=== PATIENT | female | born 1930 | race Two or more races ===

== ENCOUNTER 2019-01-23 16:11 | Emergency (ER) | payer OTHER ==
[~2019-01-23] VITALS: Ht 149.9 cm; Wt 51.7 kg
--- NOTE | 2019-01-23 16:25 | NUR ---
ED Nurse Note: Patient walked into ED brought in by her caregiver from home patient reports coughing/flu like symptoms for 2 weeks, patient reports pain around her "lung area"
[2019-01-23] MEDS ORDERED: COLACE100 MG ORAL (16:28)
[2019-01-23 16:38] VITALS: BP 139/71
--- NOTE | 2019-01-23 17:08 | Emergency Room Report ---
History of Present Illness General Chief Complaint: Upper Respiratory Illness Source: Patient (Lyssa Galeas) Present Illness HPI 88-year-old female presents to the emergency department for persistent dry cough times almost 2 weeks. Patient denies fevers, chills, fatigue, sore throat , chest pain, palpitations. Patient does report progressive intermittent pain in the back and bilateral sides of the rib cage only when coughing. Reports history of smoking in the past and bronchitis that is not chronic. Denies exertional dyspnea. Patient is not up-to-date with this year's flu vaccination. No aggravating or relieving factors at this time. She has no other complaints/symptoms. (Lyssa Galeas) Allergies: Coded Allergies: No Known Allergies (Unverified , 01/23/19) Patient History Past Medical History: see triage record, asthma Past Surgical History: none Pertinent Family History: none Social History: Reports: smoking Now: No Reviewed Nursing Documentation: PMH: Agreed; PSxH: Agreed (Lyssa Galeas) Nursing Documentation-PMH Past Medical History: No Stated History (Lyssa Galeas) Review of Systems All Other Systems: negative except mentioned in HPI (Lyssa Galeas) Physical Exam Vital Signs Date Time Temp Pulse Resp B/P (MAP) Pulse Ox O2 Delivery O2 Flow Rate FiO2 01/23/19 16:20 98.2 66 19 139/71 95 Room Air Sp02 EP Interpretation: reviewed, normal General Appearance: no apparent distress, alert, GCS 15, non-toxic Head: normocephalic, atraumatic Eyes: bilateral eye normal inspection, bilateral eye PERRL ENT: hearing grossly normal, normal voice Neck: full range of motion, no meningismus, no bony tend Respiratory: chest non-tender, lungs clear, normal breath sounds, no respiratory distress, no accessory muscle use, speaking full sentences, wheezing - very scant bilateral Wheezes noted Cardiovascular #1: regular rate, rhythm, no edema Musculoskeletal: back normal, gait/station normal, normal range of motion, non- tender Neurologic: alert, oriented x3, responsive, motor strength/tone normal, sensory intact, speech normal, grossly normal Psychiatric: judgement/insight normal Skin: normal color, no rash, warm/dry, well hydrated Lymphatic: no adenopathy (Lyssa Galeas) Medical Decision Making PA Attestation Dr. broussard is my supervising Physician whom patient management has been discussed with. (Lyssa Galeas) Medicare Attestation The history of Tamara Castano has been reviewed and management options for her have been examined and discussed by Dioni Byrne. I have personally examined and interviewed the patient. (Dioni Byrne MD) Diagnostic Impression: Primary Impression: Atypical pneumonia ER Course 88-year-old female presents to the emergency department for persistent dry cough times almost 2 weeks. Patient denies fevers, chills, fatigue, sore throat , chest pain, palpitations. Patient does report progressive intermittent pain in the back and bilateral sides of the rib cage only when coughing. Reports history of smoking in the past and bronchitis that is not chronic. Denies exertional dyspnea. Patient is not up-to-date with this year's flu vaccination. No aggravating or relieving factors at this time. She has no other complaints/symptoms. Ddx considered but are not limited to URI, pneumonia, PE, strep pharyngitis, meningitis, Bronchitis, VT, dissection just to name a few. Vital signs: Pt.is afebrile VS are WNL H&PE are most consistent with bronchitis and atypical PNA ORDERS: none required at this time, the diagnosis is clinical ED INTERVENTIONS: None required at this time. Given the extended length of patient's respiratory symptoms for greater than 10 days in addition to history of bronchitis and being in advanced age of fill this patient needs to be treated as a typical pneumonia with an antibiotic as she is considered high risk. -I do not identify an emergent condition at this time. With current presentation , pt. is stable for close outpatient follow up and conservative treatment. D/ w pt. to return promptly to ED with worsening or new symptoms.- Pt. verbalizes' understanding and agreement with proposed treatment plan. DISCHARGE: At this time pt. is stable for d/c to home. Will provide printed patient care instructions, and any necessary prescriptions. Care plan and follow up instructions have been discussed with the patient prior to discharge. (Lyssa Galeas) Last Vital Signs Date Time Temp Pulse Resp B/P (MAP) Pulse Ox O2 Delivery O2 Flow Rate FiO2 01/23/19 16:38 98.2 66 19 139/71 95 Room Air (Lyssa Galeas) Disposition: HOME, SELF-CARE Condition: Stable Scripts Codeine/Promethazine Hcl* (PROMETHAZINE-CODEINE SYRUP*) 118 Ml Syrup 5 ML ORAL Q6H PRN for For Cough, #120 ML 0 Refills Prov: Lyssa Galeas 01/23/19 Albuterol Sulfate* (ALBUTEROL SULFATE MDI*) 8.5 Gm Hfa.aer.ad 2 PUFF INH Q3H, #1 INH 0 Refills Prov: Lyssa Galeas 01/23/19 Levofloxacin* (LEVAQUIN*) 750 Mg Tablet 750 MG ORAL DAILY for 7 Days, #7 TAB Prov: Lyssa Galeas 01/23/19 Patient Instructions: Upper Respiratory Infection, Adult Additional Instructions: Take medications as directed. Follow up with a Primary Care Provider in 3-5 days, even if your symptoms have resolved. --Please review list of primary care clinics, if you do not already have a primary care provider Return sooner to ED if new symptoms occur, or current symptoms become worse. Do not drink alcohol, drive, or operate heavy machinery while taking Cough Syrup as this may cause drowsiness. - Please note that this Emergency Department Report was dictated using [employer] sawyer technology software, occasionally this can lead to erroneous entry secondary to interpretation by the dictation equipment. Lyssa Galeas Jan 23, 2019 17:08 Dioni Byrne MD Jan 26, 2019 20:54
[2019-01-23] MEDS ORDERED: LEVAQUIN750 MG ORAL (17:09)
[2019-01-23] MEDS ORDERED: PROMETHAZINE-C118 M1 ORAL (17:09)
[2019-01-23] MEDS ORDERED: ALBUTEROL SULF8.5 GM INH (17:09)
[2019-01-23 17:32] VITALS: BP 139/71
--- NOTE | 2019-01-23 17:33 | NUR ---
ER DISCHARGE NOTE: Patient is cleared to be discharged per ERPA, pt is aox4, on room air, with stable vital signs. pt was given dc and prescription instructions, pt was able to verbalize understanding, pt id band removed. pt is able to ambulate with steady gait. pt took all belongings.
== END 2019-01-23 17:30 | disposition home or self-care (01) ==
LOC: EMR 17:00
DX: J18.9 Pneumonia, unspecified organism (principal); J45.909 Unspecified asthma, uncomplicated; F17.200 Nicotine dependence, unspecified, uncomplicated
CPT/HCPCS: 99282

== ENCOUNTER 2019-08-05 16:37 | Inpatient (IN) | payer OTHER ==
[~2019-08-05] VITALS: Ht 142.2 cm; Wt 52.2 kg
[~2019-08-05 16:37] MED LIST: ALBUTEROL SULF8.5 GM INH; COLACE100 MG ORAL; LEVAQUIN750 MG ORAL; PROMETHAZINE-C118 M1 ORAL
[2019-08-05 16:45] VITALS: BP 178/84
--- NOTE | 2019-08-05 16:45 | NUR ---
ED Nurse Note: Recieved pt BIBA from home with c/o abdominal pain with constipaition x 4 days, also mild nausea, denies emesis, fevers or any other complaitns, pain level at 7/10, no cp, o sob, denies any other complaitns, pt is maltese speaking only and requires translation, pt denies cp, no sob or labored breathing, pt gowned and placed on monitoring, will resume care as ordered and covering for primary nurse.
[2019-08-05] MEDS ORDERED: Isovue-300 100ml vial INJ PRN (17:00)
[2019-08-05 17:55] LABS: BASOPHILS % (AUTO) 0.9 % (0.0-2.0); HEMOGLOBIN 11.4 G/DL (12.0-16.0); LYMPHOCYTES % (AUTO) 23.1 % (20.0-45.0); MEAN CORPUSCULAR VOLUME 80 FL (80-99); MONOCYTES % (AUTO) 7.8 % (1.0-10.0); NEUTROPHILS % (AUTO) 67.2 % (45.0-75.0); PLATELET COUNT 309 K/UL (150-450); RED BLOOD COUNT 3.99 M/UL (4.20-5.40); RED CELL DISTRIBUTION WIDTH 12.8 % (11.6-14.8); WHITE BLOOD COUNT 8.9 K/UL (4.8-10.8)
[2019-08-05 18:00] LABS: ALANINE AMINOTRANSFERASE 11 U/L (12-78); ALBUMIN 3.7 G/DL (3.4-5.0); ALBUMIN/GLOBULIN RATIO 0.9 (1.0-2.7); ALKALINE PHOSPHATASE 144 U/L (46-116); ANION GAP 10 mmol/L (5-15); ASPARTATE AMINO TRANSFERASE 26 U/L (15-37); BILIRUBIN,TOTAL 0.5 MG/DL (0.2-1.0); BLOOD UREA NITROGEN 5 mg/dL (7-18); CALCIUM 9.2 MG/DL (8.5-10.1); CARBON DIOXIDE 22 MMOL/L (21-32); CHLORIDE 81 MMOL/L (98-107); CREATININE 0.6 MG/DL (0.55-1.30); POTASSIUM 4.2 MMOL/L (3.5-5.1)
[2019-08-05 18:11] LABS: SODIUM 112 MMOL/L (136-145)
--- NOTE | 2019-08-05 19:28 | Diagnostic Imaging Report ---
Clinical Indication: Abdominal pain with constipation for 4 days, also mild nausea Technique: No oral contrast utilized, per emergency room physician request IV administration nonionic contrast. Venous phase spiral acquisition obtained through the abdomen and pelvis. Multiplanar reconstructions were generated. Total dose length product 542.02 mGycm. CTDIvol(s) 11.76 mGy. Dose reduction achieved using automated exposure control Comparison: none Findings: There is some image degradation due to motion artifact. The appendix is poorly demonstrated, due to motion artifact, possibly distended particularly distally but difficult to state with certainty. There is evidence of rectal fecal incontinence. The rectum is mildly distended by stool. There is colonic diverticulosis. No evidence of diverticulitis. The proximal colonic anatomy is not well demonstrated. Fluid-filled small bowel loops are seen in the right upper quadrant, but no randy small bowel distention. No free or loculated intraperitoneal gas or fluid is evident. The distal esophagus, stomach, duodenum are grossly unremarkable. The liver, gallbladder, bile ducts, pancreas, spleen, adrenals are unremarkable. The kidneys demonstrate mild bilateral hydronephrosis. The bladder is markedly distended. The uterus and adnexal structures appear unremarkable. The included lung bases are grossly clear. The bones demonstrate degenerative spondylosis changes. 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 Impression: Limited exam due to motion artifact Equivocally distended appendix, not well visualized due to the above. Correlate with clinical findings Distended urinary bladder. Mild resultant hydronephrosis Incidental findings as noted, including degenerative spondylosis and lumbar levoscoliotic deformity. This agrees with the preliminary interpretation provided overnight by [facility] teleradiology service. The CT scanner at [facility] is accredited by the [employer] and the scans are performed using protocols designed to limit radiation exposure to as low as reasonably achievable to attain images of sufficient resolution adequate for diagnostic evaluation.
--- NOTE | 2019-08-05 21:34 | Emergency Room Report ---
History of Present Illness General Chief Complaint: Abdominal Pain Source: Patient Present Illness HPI 89-year-old female presents ED for evaluation. Complaining of abdominal pain with nausea x4 days. Pain is mid abdomen, sharp, 8 out of 10, nonradiating. Denies fevers or chills. Denies chest pain or shortness of breath. Denies any diarrhea. No other aggravating relieving factors. Denies any other associated symptoms Allergies: Coded Allergies: PENICILLINS (Unverified Allergy, Unknown, 08/05/19) Patient History Past Medical History: HTN Past Surgical History: none Pertinent Family History: none Social History: Denies: smoking, alcohol use, drug use Now: No Immunizations: UTD Reviewed Nursing Documentation: PMH: Agreed; PSxH: Agreed Nursing Documentation-PMH Hx Hypertension: Yes Review of Systems All Other Systems: negative except mentioned in HPI Physical Exam Vital Signs Date Time Temp Pulse Resp B/P (MAP) Pulse Ox O2 Delivery O2 Flow Rate FiO2 08/05/19 16:30 98.2 86 16 178/84 (115) 96 Room Air Sp02 EP Interpretation: reviewed, normal General Appearance: no apparent distress, GCS 15, non-toxic, cachetic Head: normocephalic, atraumatic Eyes: bilateral eye normal inspection, bilateral eye PERRL ENT: hearing grossly normal, normal pharynx, no angioedema, normal voice Neck: full range of motion, supple/symm/no masses Respiratory: chest non-tender, lungs clear, normal breath sounds, speaking full sentences Cardiovascular #1: regular rate, rhythm, no edema Cardiovascular #2: 2+ carotid (R), 2+ carotid (L), 2+ radial (R), 2+ radial (L) , 2+ dorsalis pedis (R), 2+ dorsalis pedis (L) Gastrointestinal: normal bowel sounds, soft, non-distended, no guarding, no rebound, tenderness Rectal: deferred Genitourinary: normal inspection, no CVA tenderness Musculoskeletal: back normal, gait/station normal, normal range of motion, non- tender Neurologic: alert, oriented x3, responsive, motor strength/tone normal, sensory intact, speech normal Psychiatric: judgement/insight normal, memory normal, mood/affect normal, no suicidal/homicidal ideation Reflexes: 3+ bicep (R), 3+ bicep (L), 3+ tricep (R), 3+ tricep (L), 3+ knee (R) , 3+ knee (L) Lymphatic: no adenopathy Procedures Critical Care Time Critical Care Time i. I feel this is a highly complex case requiring extensive working including EKG/Rhythm strip, Xray/CT/US, Blood/urine lab work, repeat exams while in ED, and administration of strong opiates/narcotics for pain control, admission to hospital or close patient follow up. Total time: 30 min bedside evaluation and treatment excludes procedures (EKG). Reason for critical care: hyponatremia, appendicitis Possible complications: hypotension, hypertension, [place], shock, arrhythmias, metabolic acidosis, end organ damage, respiratory failure. Interventions: labs, ivfs, meds, CT. NS boluses. consulation with surgery. broad spectrum abx. Course: Presenting with abdominal pain. Labs show sodium 112. CT shows appendicitis without rupture or abscess. Surgery consulted. NS boluses given. Antibiotics given. hypertonic saline given. Consultations: nursing staff, EMS, family Performed by: Dr Byrne Tolerated well condition = critical j. because of unstable vital signs this patient had a condition that could potentially threaten life or limb. I feel this is a critical patient who required my full attention while patient was considered critical. Total Critical Care Time excluding procedures was greater than 30 minutes Medical Decision Making Diagnostic Impression: Primary Impression: Hyponatremia Additional Impression: Appendicitis Qualified Codes: K35.80 - Unspecified acute appendicitis ER Course Hospital Course 89 yo F presents with abd pain Differential diagnoses include: Appendicitis, cholecystitis, small bowel obstruction Clinical course Patient placed on stretcher. night monitor. After initial history and physical I ordered labs, IV fluids, UA, pain medication and CT scan Labs - no leukocytosis, Hb/Hct stable. Na 112. CT abdomen and pelvis - appendicits. no perforation or abscess Antibiotics given. IVFs given. Hypertonic saline ordered Dr Blackman will evaluate the patient Case discussed with Dr. Lewis and he agreed to accept the patient to his service for further care and support I feel this is a highly complex case requiring extensive working including EKG/ Rhythm strip, Xray/CT/US, Blood/urine lab work, repeat exams while in ED, and administration of strong opiates/narcotics for pain control, admission to hospital or close patient follow up. Diagnosis - appendicitis, hyponatremia Patient admitted to telemetry in serious condition Labs Test 08/05/19 17:00 White Blood Count 8.9 K/UL (4.8-10.8) Red Blood Count 3.99 M/UL (4.20-5.40) Hemoglobin 11.4 G/DL (12.0-16.0) Hematocrit 32.0 % (37.0-47.0) Mean Corpuscular Volume 80 FL (80-99) Mean Corpuscular Hemoglobin 28.6 PG (27.0-31.0) Mean Corpuscular Hemoglobin Concent 35.6 G/DL (32.0-36.0) Red Cell Distribution Width 12.8 % (11.6-14.8) Platelet Count 309 K/UL (150-450) Mean Platelet Volume 5.6 FL (6.5-10.1) Neutrophils (%) (Auto) 67.2 % (45.0-75.0) Lymphocytes (%) (Auto) 23.1 % (20.0-45.0) Monocytes (%) (Auto) 7.8 % (1.0-10.0) Eosinophils (%) (Auto) 1.0 % (0.0-3.0) Basophils (%) (Auto) 0.9 % (0.0-2.0) Sodium Level 112 MMOL/L (136-145) Potassium Level 4.2 MMOL/L (3.5-5.1) Chloride Level 81 MMOL/L (98-107) Carbon Dioxide Level 22 MMOL/L (21-32) Anion Gap 10 mmol/L (5-15) Blood Urea Nitrogen 5 mg/dL (7-18) Creatinine 0.6 MG/DL (0.55-1.30) Estimat Glomerular Filtration Rate mL/min (>60) Glucose Level 100 MG/DL (74-106) Calcium Level 9.2 MG/DL (8.5-10.1) Total Bilirubin 0.5 MG/DL (0.2-1.0) Aspartate Amino Transf (AST/SGOT) 26 U/L (15-37) Alanine Aminotransferase (ALT/SGPT) 11 U/L (12-78) Alkaline Phosphatase 144 U/L (46-116) Total Protein 8.0 G/DL (6.4-8.2) Albumin 3.7 G/DL (3.4-5.0) Globulin 4.3 g/dL Albumin/Globulin Ratio 0.9 (1.0-2.7) Lipase 105 U/L (73-393) CT/MRI/US Diagnostic Results CT/MRI/US Diagnostic Results : Imaging Test Ordered: CT A/P Impression The appendix is enlarged (11 mm) with mild stranding, correlate clinically for appendicitis. No free air. No fluid collections. No SBO or diverticulitis. Significantly distended bladder. Mild bilateral hydronephrosis/pelviectasis. No ureteral calculus. Unremarkable gallbladder and pancreas. Last Vital Signs Date Time Temp Pulse Resp B/P (MAP) Pulse Ox O2 Delivery O2 Flow Rate FiO2 08/05/19 16:45 86 16 Room Air 08/05/19 16:45 98.2 178/84 96 Status: improved Disposition: ADMITTED INPATIENT Condition: Serious Referrals: [facility],REFERRING (PCP) Dioni Byrne MD Aug 05, 2019 21:34
[2019-08-05] MEDS ORDERED: NaCl 3% 500ml 500 ML IV ONE (22:30)
--- NOTE | 2019-08-05 23:28 | Consultation ---
History of Present Illness General Date patient seen: Aug 05, 2019 Reason for Hospitalization: Abdominal Pain Present Illness HPI This is a 81-year-old female with multiple medical comorbidities who presented to [facility] emergency department complaining of abdominal pain and nausea for approximately 4 days. States that abdominal pain is mid abdominal pain around the umbilicus/pelvis and radiating to the left lower quadrant. Nausea but no significant emesis. Has had decreased appetite. In emergency department had a CT scan which identified 11 mm appendix with periappendiceal stranding which is mild but considerations for possible appendicitis. No leukocytosis, afebrile, hemodynamically stable. Admitted for work-up care and management. Surgery called to evaluate. Patient seen, patient evaluated, chart reviewed Allergies: Coded Allergies: PENICILLINS (Unverified Allergy, Unknown, 08/05/19) Medication History Scheduled Albuterol Sulfate* (Albuterol Sulfate Mdi*), 2 PUFF INH Q3H Docusate Sodium* (Colace*), 100 MG ORAL DAILY, (Reported) Levofloxacin* (Levaquin*), 750 MG ORAL DAILY Scheduled PRN Codeine/Promethazine Hcl* (Promethazine-Codeine Syrup*), 5 ML ORAL Q6H PRN for For Cough Patient History History Provided By: Patient, Medical Record, PMD Healthcare decision maker Resuscitation status Advanced Directive on File Past Medical/Surgical History Past Medical/Surgical History: (1) Abdominal pain (2) Hyponatremia (3) Appendicitis Review of Systems Review of Symptoms General ROS: no weight loss or fever Psychological ROS: no depression or mood changes, no memory loss Ophthalmic ROS: no visual changes or eye irritation ENT ROS: no nasal congestion, hearing loss, dizziness Allergy and Immunology ROS: no allergic symptoms or urticaria Hematological and Lymphatic ROS: no swollen glands, unusual bleeding or bruising Endocrine ROS: no polyuria, polydipsia, weight changes, temperature intolerance Respiratory ROS: no cough, shortness of breath, or wheezing Cardiovascular ROS: no chest pain or dyspnea on exertion Gastrointestinal ROS: abdominal pain, no bright red blood in stool. Musculoskeletal ROS: no myalgias or arthralgias Neurological ROS: no TIA or stroke symptoms Dermatological ROS: no new or changing skin lesions, rashes or pruritis Physical Exam Physical Exam General appearance: alert, cooperative, no distress, appears stated age Head: Normocephalic, without obvious abnormality, atraumatic Eyes: conjunctivae/corneas clear. PERRL, EOM's intact. Fundi benign Throat: Lips, mucosa, and tongue normal. Teeth and gums normal Neck: supple, symmetrical, trachea midline, no adenopathy, thyroid: not enlarged, symmetric, no tenderness/mass/nodules, no carotid bruit and no JVD Lungs: clear to auscultation bilaterally Heart: regular rate and rhythm, S1, S2 normal, no murmur, click, rub or gallop Abdomen: soft, mild mid abdominal tender, no focal RLQ tenderness, no rebound, no guarding. Bowel sounds normal. No masses, no organomegaly Extremities: extremities normal, atraumatic, no cyanosis or edema Pulses: 2+ and symmetric Skin: Skin color, texture, turgor normal. No rashes or lesions Neurologic: Grossly normal Last 24 Hour Vital Signs Date Time Temp Pulse Resp B/P (MAP) Pulse Ox O2 Delivery O2 Flow Rate FiO2 08/05/19 16:45 86 16 Room Air 08/05/19 16:45 98.2 84 16 178/84 96 Room Air 08/05/19 16:30 98.2 86 16 178/84 (115) 96 Room Air Laboratory Tests Test 08/05/19 17:00 08/05/19 23:00 White Blood Count 8.9 K/UL (4.8-10.8) Red Blood Count 3.99 M/UL (4.20-5.40) L Hemoglobin 11.4 G/DL (12.0-16.0) L Hematocrit 32.0 % (37.0-47.0) L Mean Corpuscular Volume 80 FL (80-99) Mean Corpuscular Hemoglobin 28.6 PG (27.0-31.0) Mean Corpuscular Hemoglobin Concent 35.6 G/DL (32.0-36.0) Red Cell Distribution Width 12.8 % (11.6-14.8) Platelet Count 309 K/UL (150-450) Mean Platelet Volume 5.6 FL (6.5-10.1) L Neutrophils (%) (Auto) 67.2 % (45.0-75.0) Lymphocytes (%) (Auto) 23.1 % (20.0-45.0) Monocytes (%) (Auto) 7.8 % (1.0-10.0) Eosinophils (%) (Auto) 1.0 % (0.0-3.0) Basophils (%) (Auto) 0.9 % (0.0-2.0) Sodium Level 112 MMOL/L (136-145) *L Potassium Level 4.2 MMOL/L (3.5-5.1) Chloride Level 81 MMOL/L (98-107) L Carbon Dioxide Level 22 MMOL/L (21-32) Anion Gap 10 mmol/L (5-15) Blood Urea Nitrogen 5 mg/dL (7-18) L Creatinine 0.6 MG/DL (0.55-1.30) Estimat Glomerular Filtration Rate mL/min (>60) Glucose Level 100 MG/DL (74-106) Calcium Level 9.2 MG/DL (8.5-10.1) Total Bilirubin 0.5 MG/DL (0.2-1.0) Aspartate Amino Transf (AST/SGOT) 26 U/L (15-37) Alanine Aminotransferase (ALT/SGPT) 11 U/L (12-78) L Alkaline Phosphatase 144 U/L (46-116) H Total Protein 8.0 G/DL (6.4-8.2) Albumin 3.7 G/DL (3.4-5.0) Globulin 4.3 g/dL Albumin/Globulin Ratio 0.9 (1.0-2.7) L Lipase 105 U/L (73-393) Prothrombin Time 11.0 SEC (9.30-11.50) Prothromb Time International Ratio 1.0 (0.9-1.1) Activated Partial Thromboplast Time 32 SEC (23-33) Height (Feet): 5 Height (Inches): 4.00 Weight (Pounds): 110 Medications Current Medications Medications (Trade) Dose Ordered Sig/Celeste Route PRN Reason Start Time Stop Time Status Last Admin Dose Admin Iopamidol (Isovue-300 100ml) 100 ml NOW PRN INJ Radiology Procedure 08/05/19 17:00 Sodium Chloride 500 ml @ 30 mls/hr ONCE ONCE IV 08/05/19 22:30 08/06/19 15:09 Assessment/Plan Problem List: (1) Hyponatremia ICD Codes: E87.1 - Hypo-osmolality and hyponatremia SNOMED: 91108069 (2) Appendicitis ICD Codes: K37 - Unspecified appendicitis SNOMED: 71529121 Qualifiers: Qualified Codes: K35.80 - Unspecified acute appendicitis (3) Abdominal pain Assessment & Plan: This is a 81-year-old female who presented to the emergency department at [facility] complaining of abdominal pain nausea for 4 days. Afebrile, hemodynamically stable, labs as above. No leukocytosis. CT scan with 11 mm dilated appendix and mild periappendiceal stranding. On examination patient has some mild discomfort in the mid Abdominal and pelvic and left abdominal area. There is no focal tenderness or tenderness at all in the right lower quadrant. No rebound no guarding. CT scan reviewed and agree that the appendix is dilated with mild periappendiceal stranding. Examination not consistent with appendicitis despite CT findings. No leukocytosis. Afebrile. Patient with abnormal labs and hyponatremia. Given patient's age, medical condition, baseline status, Above findings do not recommend urgent surgical intervention Possible early acute appendicitis and will attempt nonoperative medical management if patient tolerated. N.p.o. IV fluids IV antibiotics We will follow with serial exams A.m. labs Thank you for this consultation with follow with recommendations ICD Codes: R10.9 - Unspecified abdominal pain SNOMED: 23676214 Larry Blackman Aug 05, 2019 23:28
[2019-08-05 23:45] VITALS: BP 149/70
--- NOTE | 2019-08-05 23:45 | NUR ---
NURSE NOTES: Received pt from ED via gurney. Pt transferred to [facility] without any incident. Family member at bedside. Pt is A/Ox2. [place] pt to room, unit, and hospital policies. Received report from ADARSH Medrano. Belongings list checked and accounted for. IV site intact, asymptomatic and patent. bus monitor is in placed. Bed is in the lowest position and locked. Call light within reach. No signs/symptoms of acute distress noted at this time. Will contact Dr. Lewis for admission orders.
--- NOTE | 2019-08-05 23:46 | NUR ---
NURSE NOTES: Received orders from Dr. Lewis. Will note and carry out.
--- NOTE | 2019-08-05 23:50 | NUR ---
NURSE NOTES: Dr. Blackman saw pt and assessed pt for abdominal pain. Dr. Blackman said pt's current condition is mild and does not need any operation at the moment.
--- NOTE | 2019-08-06 00:10 | NUR ---
NURSE NOTES: Dr. Blackman ordered to cancel NS and continue Hypertonic Saline 3% @ 30cc/hr that was ordered by ER doctor.
[2019-08-06 04:00] VITALS: BP 158/79
[2019-08-06 07:13] LABS: BASOPHILS % (AUTO) 0.9 % (0.0-2.0); EOSINOPHILS % (AUTO) 1.3 % (0.0-3.0); HEMATOCRIT 36.9 % (37.0-47.0); HEMOGLOBIN 12.3 G/DL (12.0-16.0); LYMPHOCYTES % (AUTO) 21.2 % (20.0-45.0); MEAN CORPUSCULAR VOLUME 86 FL (80-99); MONOCYTES % (AUTO) 9.9 % (1.0-10.0); NEUTROPHILS % (AUTO) 66.7 % (45.0-75.0); PLATELET COUNT 299 K/UL (150-450); RED BLOOD COUNT 4.27 M/UL (4.20-5.40); RED CELL DISTRIBUTION WIDTH 14.4 % (11.6-14.8)
--- NOTE | 2019-08-06 07:44 | NUR ---
NURSE NOTES: Received report from Emily/RN, Patient is awake, lying semi-fowlers, resting comfortably. No signs of acute distress or pain noted at this time. AO x2-3, Serbian speaker. Checked IV site, patent, no bleeding, or infiltration noted. Bed at lowest position, and locked. brakes on, side rails up x3, Call light within reach. Will continue plan of care.
[2019-08-06 07:58] LABS: ALANINE AMINOTRANSFERASE 11 U/L (12-78); ALBUMIN 3.8 G/DL (3.4-5.0); ALBUMIN/GLOBULIN RATIO 0.9 (1.0-2.7); ALKALINE PHOSPHATASE 146 U/L (46-116); ANION GAP 12 mmol/L (5-15); ASPARTATE AMINO TRANSFERASE 25 U/L (15-37); BILIRUBIN,TOTAL 0.5 MG/DL (0.2-1.0); BLOOD UREA NITROGEN < 1 mg/dL (7-18); CALCIUM 9.6 MG/DL (8.5-10.1); CARBON DIOXIDE 20 MMOL/L (21-32); CHLORIDE 92 MMOL/L (98-107); CREATININE 0.8 MG/DL (0.55-1.30); POTASSIUM 4.1 MMOL/L (3.5-5.1); SODIUM 124 MMOL/L (136-145)
[2019-08-06 08:00] VITALS: BP 134/75
--- NOTE | 2019-08-06 08:05 | NUR ---
HAND-OFF: Report given to ADARSH Golden.
[2019-08-06 08:44] LABS: CHOLESTEROL 222 MG/DL (< 200); HDL CHOLESTEROL 63 MG/DL (40-60); TRIGLYCERIDES 65 MG/DL (30-150)
[2019-08-06] MEDS: Morphine Sulfate 2mg/ml Inj(IV/IM USE ONLY) IVP PRN (09:33)
[2019-08-06] MEDS ORDERED: NaCl 3% 500ml 250 ML IV ONE (09:45)
--- NOTE | 2019-08-06 10:30 | Surgery Progress Note ---
Surgery Progress Note Subjective Additional Comments no acute events states she is well comfortable no n/v/f/c abd pain improved CT reviewed with radiology and no clearly identified appendix noted. no wbc esr/crp nml Objective Last 24 Hour Vital Signs Date Time Temp Pulse Resp B/P (MAP) Pulse Ox O2 Delivery O2 Flow Rate FiO2 08/06/19 08:00 97.3 64 20 134/75 (94) 97 08/06/19 04:00 59 08/06/19 04:00 98.3 71 19 158/79 (105) 99 08/06/19 00:00 58 08/05/19 23:45 97.9 60 18 149/70 (96) 100 08/05/19 23:23 Room Air 08/05/19 23:04 61 08/05/19 16:45 86 16 Room Air 08/05/19 16:45 98.2 84 16 178/84 96 Room Air 08/05/19 16:30 98.2 86 16 178/84 (115) 96 Room Air I&O Intake and Output 08/05/19 08/06/19 19:00 07:00 Intake Total 500 ml Balance 500 ml Intake Oral 0 ml IV Total 500 ml # Voids 2 Cardiovascular: RSR Respiratory: clear Abdomen: soft, flat, tenderness - discomfort in pelvic and llq, present bowel sounds, other, non-distended Extremities: no edema, no tenderness, no cyanosis Laboratory Tests Test 08/05/19 17:00 08/05/19 23:00 08/06/19 05:49 White Blood Count 8.9 K/UL (4.8-10.8) 7.0 K/UL (4.8-10.8) Red Blood Count 3.99 M/UL (4.20-5.40) L 4.27 M/UL (4.20-5.40) Hemoglobin 11.4 G/DL (12.0-16.0) L 12.3 G/DL (12.0-16.0) Hematocrit 32.0 % (37.0-47.0) L 36.9 % (37.0-47.0) L Mean Corpuscular Volume 80 FL (80-99) 86 FL (80-99) Mean Corpuscular Hemoglobin 28.6 PG (27.0-31.0) 28.8 PG (27.0-31.0) Mean Corpuscular Hemoglobin Concent 35.6 G/DL (32.0-36.0) 33.3 G/DL (32.0-36.0) Red Cell Distribution Width 12.8 % (11.6-14.8) 14.4 % (11.6-14.8) Platelet Count 309 K/UL (150-450) 299 K/UL (150-450) Mean Platelet Volume 5.6 FL (6.5-10.1) L 6.3 FL (6.5-10.1) L Neutrophils (%) (Auto) 67.2 % (45.0-75.0) 66.7 % (45.0-75.0) Lymphocytes (%) (Auto) 23.1 % (20.0-45.0) 21.2 % (20.0-45.0) Monocytes (%) (Auto) 7.8 % (1.0-10.0) 9.9 % (1.0-10.0) Eosinophils (%) (Auto) 1.0 % (0.0-3.0) 1.3 % (0.0-3.0) Basophils (%) (Auto) 0.9 % (0.0-2.0) 0.9 % (0.0-2.0) Sodium Level 112 MMOL/L (136-145) *L 124 MMOL/L (136-145) #L Potassium Level 4.2 MMOL/L (3.5-5.1) 4.1 MMOL/L (3.5-5.1) Chloride Level 81 MMOL/L (98-107) L 92 MMOL/L (98-107) L Carbon Dioxide Level 22 MMOL/L (21-32) 20 MMOL/L (21-32) L Anion Gap 10 mmol/L (5-15) 12 mmol/L (5-15) Blood Urea Nitrogen 5 mg/dL (7-18) L < 1 mg/dL (7-18) L Creatinine 0.6 MG/DL (0.55-1.30) 0.8 MG/DL (0.55-1.30) Estimat Glomerular Filtration Rate mL/min (>60) mL/min (>60) Glucose Level 100 MG/DL (74-106) 87 MG/DL (74-106) Calcium Level 9.2 MG/DL (8.5-10.1) 9.6 MG/DL (8.5-10.1) Total Bilirubin 0.5 MG/DL (0.2-1.0) 0.5 MG/DL (0.2-1.0) Aspartate Amino Transf (AST/SGOT) 26 U/L (15-37) 25 U/L (15-37) Alanine Aminotransferase (ALT/SGPT) 11 U/L (12-78) L 11 U/L (12-78) L Alkaline Phosphatase 144 U/L (46-116) H 146 U/L (46-116) H Total Protein 8.0 G/DL (6.4-8.2) 8.0 G/DL (6.4-8.2) Albumin 3.7 G/DL (3.4-5.0) 3.8 G/DL (3.4-5.0) Globulin 4.3 g/dL 4.2 g/dL Albumin/Globulin Ratio 0.9 (1.0-2.7) L 0.9 (1.0-2.7) L Lipase 105 U/L (73-393) Prothrombin Time 11.0 SEC (9.30-11.50) 10.6 SEC (9.30-11.50) Prothromb Time International Ratio 1.0 (0.9-1.1) 1.0 (0.9-1.1) Activated Partial Thromboplast Time 32 SEC (23-33) 30 SEC (23-33) Erythrocyte Sedimentation Rate 26 MM/HR (0-30) Osmolality 256 mOsm/kg (297-317) L Uric Acid 2.9 MG/DL (2.6-7.2) C-Reactive Protein, Quantitative < 0.4 mg/dL (0.00-0.90) Triglycerides Level 65 MG/DL (30-150) Cholesterol Level 222 MG/DL (< 200) H LDL Cholesterol 141 mg/dL (<100) H HDL Cholesterol 63 MG/DL (40-60) H Cholesterol/HDL Ratio 3.5 (3.3-4.4) Thyroid Stimulating Hormone (TSH) 1.235 uiU/mL (0.358-3.740) Plan Problems: (1) Hyponatremia (2) Appendicitis (3) Abdominal pain Assessment & Plan: This is a 81-year-old female who presented to the emergency department at [facility] complaining of abdominal pain nausea for 4 days. Afebrile, hemodynamically stable, labs as above. No leukocytosis. CT scan with 11 mm dilated appendix and mild periappendiceal stranding. On examination patient has some mild discomfort in the mid Abdominal and pelvic and left abdominal area. There is no focal tenderness or tenderness at all in the right lower quadrant. No rebound no guarding. CT reviewed with radiology and no clearly identified appendix noted. no wbc esr/crp nml Examination not consistent with appendicitis Patient with abnormal labs and hyponatremia. Given patient's age, medical condition, baseline status, Above findings do not recommend urgent surgical intervention given review of CT with radiologist, nml wbc, nml crp, nml esr, and exam, unlikely appendicitis. trial diet IV fluids IV antibiotics A.m. labs Thank you for this consultation with follow with recommendations Larry Blackman Aug 06, 2019 10:30
[2019-08-06] MEDS ORDERED: Milk of Magnesia 30ml Ud ORAL ONE ×2 (10:45→13:30)
[2019-08-06 12:00] VITALS: BP 156/77
--- NOTE | 2019-08-06 13:50 | NUR ---
CASE MANAGEMENT:REVIEW 89 YR OLD FEMALE BIBA FROM HOME CC: ABDOMINAL PAIN. MILD NAUSEA SI: HYPONATREMIA. APPENDICITIS 98.2 86 16 178/84 96% ON RA NA-112 IS: IV ZOFRAN IV PEPCID 500CC NS BOLUS IV CIPRO IV FLAGYL CT ABD/PELVIS : TO TELEMETRY INTERQUAL CRITERIA MET
[2019-08-06 16:00] VITALS: BP 145/60
[2019-08-06 16:52] LABS: APPEARANCE,URINE CLEAR; BILIRUBIN, URINE NEGATIVE (NEGATIVE); COLOR,URINE PALE YELLOW; GLUCOSE, URINE (UA) NEGATIVE (NEGATIVE); KETONES,URINE 1+ (NEGATIVE); LEUKOCYTE ESTERASE ,URINE NEGATIVE (NEGATIVE); NITRITE,URINE NEGATIVE (NEGATIVE); PH,URINE 6.5 (4.5-8.0); PROTEIN,URINE NEGATIVE (NEGATIVE); UROBILINOGEN,URINE NORMAL MG/DL (0.0-1.0)
--- NOTE | 2019-08-06 16:52 | Consultation ---
Consult Note Consult Note asked to eval for low Na Patient examined data reviewed Grand daughter translating admitted via ER Dx of Appendicitis ER: 89-year-old female presents ED for evaluation. Complaining of abdominal pain with nausea x4 days. Pain is mid abdomen, sharp, 8 out of 10, nonradiating. Denies fevers or chills. Denies chest pain or shortness of breath. Denies any diarrhea. No other aggravating relieving factors. Denies any other associated symptoms Allergies: PENICILLINS (Unverified Allergy, Unknown, 08/05/19) Past Medical History: HTN Hx Hypertension: Yes Assessment/Plan Hyponatremia: Etiology? Depletional vs SIADH ( waiting for U Os and U Na results ) Abd pain: Unlikely Appendicitis HTN Saline Monitor lytes further management per urine results Surgical note; This is a 81-year-old female who presented to the emergency department at [facility] complaining of abdominal pain nausea for 4 days. Afebrile, hemodynamically stable, labs as above. No leukocytosis. CT scan with 11 mm dilated appendix and mild periappendiceal stranding. On examination patient has some mild discomfort in the mid Abdominal and pelvic and left abdominal area. There is no focal tenderness or tenderness at all in the right lower quadrant. No rebound no guarding. CT reviewed with radiology and no clearly identified appendix noted. no wbc esr/crp nml Examination not consistent with appendicitis Patient with abnormal labs and hyponatremia. Given patient's age, medical condition, baseline status, Above findings do not recommend urgent surgical intervention given review of CT with radiologist, nml wbc, nml crp, nml esr, and exam, unlikely appendicitis. Neal Huffman MD Aug 06, 2019 16:52
[2019-08-06] MEDS ORDERED: D5NS 1,000 ML IV SCH (18:15)
--- NOTE | 2019-08-06 18:45 | Cardiology Report ---
APPROVED REPORT EKG Measurement Heart [id number] [id number] Normal sinus rhythm Left bundle branch block Abnormal ECG
--- NOTE | 2019-08-06 19:20 | NUR ---
HAND-OFF: Report given to Haris/RN, Patient lying semi-duncan's, No acute distress noted. Endorsed plan of care.
--- NOTE | 2019-08-06 19:21 | NUR ---
Received handoff report from ADARSH Golden. Pt resting, bed in lowest position. Call lights within reach. will continue to monitor.
[2019-08-06 20:00] VITALS: BP 136/57
--- NOTE | 2019-08-06 20:15 | Consultation ---
DATE OF CONSULTATION: 08/06/2019 INFECTIOUS DISEASE CONSULTATION CONSULTING PHYSICIAN: Isai Pride M.D. PRIMARY ATTENDING PHYSICIAN: Becca Lewis M.D. REASON FOR CONSULT: Appendicitis and dysuria. HISTORY OF PRESENT ILLNESS: The patient is an 89-year-old female, admitted yesterday from home complaining of abdominal pain and nausea for four days. Pain was in upper abdomen, epigastric area. She had decrease in appetite. No fever and leukocytosis. PAST MEDICAL HISTORY: Significant for hypertension and arthritis. ALLERGIES: Allergic to penicillin. MEDICATIONS: Milk of magnesia, Cipro, Flagyl, Zofran, morphine, Tylenol, and sodium chloride. SOCIAL HISTORY: Lives at home. Single. REVIEW OF SYSTEMS: No fever. No chills. Pain has decreased and the patient can tolerate a clear liquid diet. Has pain in passing urine. PHYSICAL EXAMINATION: VITAL SIGNS: Temperature 97, pulse 60, and blood pressure 156/77. GENERAL APPEARANCE: No acute distress. Awake, alert. HEAD AND NECK: No teeth. HEART: Normal rate. LUNGS: Clear. ABDOMEN: Mildly tender in the epigastric area. EXTREMITIES: No edema. LABORATORY DATA: WBC 7, hemoglobin 12.3, hematocrit 36.9, and platelets 299,000. Sodium is 124, at the time of admission was 112; BUN 12; and creatinine 1. Alkaline phosphatase 146. CT scan of the abdomen and pelvis shows limited motion artifact. Appendix is not visualized well. Had questionable urinary retention and had distended urinary bladder, mild resultant hydronephrosis. IMPRESSION: Abdominal pain, may have urinary tract infection, may have also acute appendicitis, but unfortunately the appendix was not seen well in the CT scan of the abdomen. The patient has severe hyponatremia, penicillin allergy, hypertension, distended urinary bladder, and questionable urinary retention. RECOMMENDATIONS: Continue Cipro and Flagyl that can be given orally. We will follow up UA. We will follow up the cultures. At the end of my exam, I thank Dr. Lewis, for involving me in the care of this patient. Isai Pride M.D. DR: ALBARO JOB#: [id number] CC:
[2019-08-06] MEDS: Pantoprazole Inj IVP SCH (21:08)
[2019-08-07] VITALS: BP 128/67
--- NOTE | 2019-08-07 03:30 | History and Physical Report ---
DATE OF ADMISSION: 08/05/2019 HISTORY OF PRESENT ILLNESS: The patient is admitted for severe hyponatremia and rule out appendicitis. The patient has been complaining of dysuria and abdominal pain, continuous constipation for the past couple of days. She also has history of hypertension and dysuria, and the patient is admitted for those reasons. PAST MEDICAL HISTORY: Constipation as well as hypertension. PAST SURGICAL HISTORY: None. ALLERGIES: To penicillin. MEDICATIONS: None. SOCIAL HISTORY: History of smoking. No history of alcohol or illicit drugs. FAMILY HISTORY: Noncontributory. REVIEW OF SYSTEMS: HEENT: Denies headaches. RESPIRATORY: Denies shortness of breath. Denies cough. CARDIOVASCULAR: Denies chest pain. Denies orthopnea. GASTROINTESTINAL: Reports abdominal pain and constipation for a couple of days. CENTRAL NERVOUS SYSTEM: No change in vision or speech pattern. PHYSICAL EXAMINATION: VITAL SIGNS: Temperature 98.2, pulse 70, . HEENT: PERRLA. NECK: Supple. No lymphadenopathy. CHEST: Clear to auscultation. CARDIOVASCULAR: Regular rate and rhythm. GASTROINTESTINAL: The patient does have some diffuse abdominal pain; however, abdomen is soft, nontender. No organomegaly. EXTREMITIES: No edema. Moves all extremities. Sensory intact. Reflexes equal on both sides. LABORATORY DATA: Significant for sodium 112. ASSESSMENT AND PLAN: 1. Hyponatremia. 2. Abdominal pain. 3. . 4. The patient with appendicitis and constipation. I have asked basically Dr. Isai Pride, Dr. Blackman, Dr. Huffman, Dr. Concepcion to see the patient for the management of treatment of above-mentioned conditions. We will monitor the patient closely. The patient is not in any acute distress. Becca Lewis M.D. DR: JORDAN JOB#: [id number] CC:
[2019-08-07 04:00] VITALS: BP 126/75
--- NOTE | 2019-08-07 07:10 | NUR ---
HAND-OFF: Report given to ADARSH Golden.
--- NOTE | 2019-08-07 07:15 | NUR ---
NURSE NOTES: Received report from Haris/RN, Patient is asleep, lying semi-fowlers, resting comfortably. No signs of acute distress or pain noted at this time. Checked IV site, patent, no bleeding, or infiltration noted. Bed at lowest position, and locked. brakes on, side rails up x3, Call light and personal belonging within reach. Will continue plan of care.
[2019-08-07 07:33] LABS: BASOPHILS % (AUTO) 1.1 % (0.0-2.0); EOSINOPHILS % (AUTO) 2.3 % (0.0-3.0); HEMATOCRIT 35.2 % (37.0-47.0); HEMOGLOBIN 11.6 G/DL (12.0-16.0); LYMPHOCYTES % (AUTO) 27.3 % (20.0-45.0); MEAN CORPUSCULAR VOLUME 87 FL (80-99); NEUTROPHILS % (AUTO) 54.4 % (45.0-75.0); PLATELET COUNT 306 K/UL (150-450); RED BLOOD COUNT 4.03 M/UL (4.20-5.40); RED CELL DISTRIBUTION WIDTH 14.3 % (11.6-14.8); WHITE BLOOD COUNT 5.8 K/UL (4.8-10.8)
[2019-08-07 08:00] VITALS: BP 173/85
[2019-08-07 08:01] LABS: ALANINE AMINOTRANSFERASE 8 U/L (12-78); ALBUMIN 3.3 G/DL (3.4-5.0); ALBUMIN/GLOBULIN RATIO 0.9 (1.0-2.7); ALKALINE PHOSPHATASE 121 U/L (46-116); ANION GAP 11 mmol/L (5-15); ASPARTATE AMINO TRANSFERASE 24 U/L (15-37); BILIRUBIN,TOTAL 0.4 MG/DL (0.2-1.0); BLOOD UREA NITROGEN 4 mg/dL (7-18); CALCIUM 9.5 MG/DL (8.5-10.1); CARBON DIOXIDE 22 MMOL/L (21-32); CHLORIDE 101 MMOL/L (98-107); CREATININE 0.7 MG/DL (0.55-1.30); PHOSPHORUS 3.5 MG/DL (2.5-4.9); POTASSIUM 3.8 MMOL/L (3.5-5.1); SODIUM 134 MMOL/L (136-145)
[2019-08-07] MEDS: Pantoprazole Inj IVP SCH (10:16)
--- NOTE | 2019-08-07 11:20 | Infectious Diseases Prog Note ---
Assessment/Plan Assessment/Plan IMPRESSION: also acute appendicitis, Severe hyponatremia, penicillin allergy, hypertension, . RECOMMENDATIONS: Continue Cipro and Flag Subjective ROS Limited/Unobtainable: Yes Constitutional: Reports: no symptoms Allergies: Coded Allergies: PENICILLINS (Unverified Allergy, Unknown, 08/05/19) Objective Vital Signs Last 24 Hour Vital Signs Date Time Temp Pulse Resp B/P (MAP) Pulse Ox O2 Delivery O2 Flow Rate FiO2 08/07/19 09:00 Room Air 08/07/19 08:00 98.4 61 20 173/85 (114) 97 08/07/19 08:00 61 08/07/19 04:00 98.1 50 18 126/75 (92) 98 08/07/19 04:00 50 08/07/19 00:00 97.6 59 18 128/67 (87) 97 08/07/19 00:00 59 08/06/19 21:00 Room Air 08/06/19 20:00 97.6 56 18 136/57 (83) 96 08/06/19 20:00 56 08/06/19 16:00 97.2 67 22 145/60 (88) 98 08/06/19 16:00 67 08/06/19 12:00 97.0 60 22 156/77 (103) 98 08/06/19 12:00 64 Height (Feet): 4 Height (Inches): 8.00 Weight (Pounds): 115 General Appearance: no acute distress HEENT: mucous membranes moist Respiratory/Chest: lungs clear Cardiovascular: normal rate Abdomen: soft, non tender Extremities: no edema Neurologic/Psychiatric: alert, responsive Laboratory Tests Test 08/06/19 16:30 08/07/19 06:00 Urine Color Pale yellow Urine Appearance Clear Urine pH 6.5 (4.5-8.0) Urine Specific [place] 1.005 (1.005-1.035) Urine Protein Negative (NEGATIVE) Urine Glucose (UA) Negative (NEGATIVE) Urine Ketones 1+ (NEGATIVE) H Urine Blood Negative (NEGATIVE) Urine Nitrite Negative (NEGATIVE) Urine Bilirubin Negative (NEGATIVE) Urine Urobilinogen Normal MG/DL (0.0-1.0) Urine Leukocyte Esterase Negative (NEGATIVE) Urine RBC 0-2 /HPF (0 - 2) Urine WBC 0-2 /HPF (0 - 2) Urine Squamous Epithelial Cells Few /LPF (NONE/OCC) Urine Bacteria Few /HPF (NONE) Urine Osmolality 201 mOsm/kg (429-449) L Urine Random Sodium 46 mmol/L (20-110) White Blood Count 5.8 K/UL (4.8-10.8) Red Blood Count 4.03 M/UL (4.20-5.40) L Hemoglobin 11.6 G/DL (12.0-16.0) L Hematocrit 35.2 % (37.0-47.0) L Mean Corpuscular Volume 87 FL (80-99) Mean Corpuscular Hemoglobin 28.9 PG (27.0-31.0) Mean Corpuscular Hemoglobin Concent 33.1 G/DL (32.0-36.0) Red Cell Distribution Width 14.3 % (11.6-14.8) Platelet Count 306 K/UL (150-450) Mean Platelet Volume 6.3 FL (6.5-10.1) L Neutrophils (%) (Auto) 54.4 % (45.0-75.0) Lymphocytes (%) (Auto) 27.3 % (20.0-45.0) Monocytes (%) (Auto) 15.0 % (1.0-10.0) H Eosinophils (%) (Auto) 2.3 % (0.0-3.0) Basophils (%) (Auto) 1.1 % (0.0-2.0) Sodium Level 134 MMOL/L (136-145) L Potassium Level 3.8 MMOL/L (3.5-5.1) Chloride Level 101 MMOL/L (98-107) Carbon Dioxide Level 22 MMOL/L (21-32) Anion Gap 11 mmol/L (5-15) Blood Urea Nitrogen 4 mg/dL (7-18) L Creatinine 0.7 MG/DL (0.55-1.30) Estimat Glomerular Filtration Rate mL/min (>60) Glucose Level 106 MG/DL (74-106) Uric Acid 2.8 MG/DL (2.6-7.2) Calcium Level 9.5 MG/DL (8.5-10.1) Phosphorus Level 3.5 MG/DL (2.5-4.9) Magnesium Level 2.4 MG/DL (1.8-2.4) Total Bilirubin 0.4 MG/DL (0.2-1.0) Aspartate Amino Transf (AST/SGOT) 24 U/L (15-37) Alanine Aminotransferase (ALT/SGPT) 8 U/L (12-78) L Alkaline Phosphatase 121 U/L (46-116) H Total Protein 7.1 G/DL (6.4-8.2) Albumin 3.3 G/DL (3.4-5.0) L Globulin 3.8 g/dL Albumin/Globulin Ratio 0.9 (1.0-2.7) L Current Medications Medications (Trade) Dose Ordered Sig/Celeste Route PRN Reason Start Time Stop Time Status Last Admin Dose Admin Acetaminophen (Tylenol) 650 mg Q4H PRN ORAL Mild Pain/Temp > 100.5 08/06/19 00:30 09/05/19 00:29 Ciprofloxacin 200 ml @ 200 mls/hr Q12HR IV 08/06/19 09:00 08/13/19 08:59 08/07/19 10:16 Dextrose/Sodium Chloride 1,000 ml @ 50 mls/hr Q20H IV 08/06/19 18:15 09/05/19 18:14 08/06/19 17:49 Iopamidol (Isovue-300 100ml) 100 ml NOW PRN INJ Radiology Procedure 08/05/19 17:00 08/07/19 16:59 Metronidazole 100 ml @ 100 mls/hr Q8HR IVPB 08/06/19 06:00 08/13/19 05:59 08/07/19 06:19 Morphine Sulfate (Morphine Sulfate) 2 mg Q4H PRN IVP For Pain 08/06/19 00:30 08/13/19 00:29 08/06/19 09:33 Ondansetron HCl (Zofran) 4 mg Q6H PRN IVP Nausea & Vomiting 08/06/19 00:30 09/05/19 00:29 Pantoprazole (Protonix) 40 mg EVERY 12 HOURS IVP 08/06/19 21:00 09/05/19 20:59 08/07/19 10:16 Isai Pride MD Aug 07, 2019 11:20
[2019-08-07 12:00] VITALS: BP 185/78
--- NOTE | 2019-08-07 14:12 | Surgery Progress Note ---
Surgery Progress Note Subjective Symptoms: improved, pain absent, voiding well, passing flatus Objective Last 24 Hour Vital Signs Date Time Temp Pulse Resp B/P (MAP) Pulse Ox O2 Delivery O2 Flow Rate FiO2 08/07/19 09:00 Room Air 08/07/19 08:00 98.4 61 20 173/85 (114) 97 08/07/19 08:00 61 08/07/19 04:00 98.1 50 18 126/75 (92) 98 08/07/19 04:00 50 08/07/19 00:00 97.6 59 18 128/67 (87) 97 08/07/19 00:00 59 08/06/19 21:00 Room Air 08/06/19 20:00 97.6 56 18 136/57 (83) 96 08/06/19 20:00 56 08/06/19 16:00 97.2 67 22 145/60 (88) 98 08/06/19 16:00 67 I&O Intake and Output 08/06/19 08/07/19 19:00 07:00 Intake Total 0 ml 850 ml Balance 0 ml 850 ml Intake Oral 150 ml IV Total 0 ml 700 ml # Voids 2 3 Cardiovascular: RSR Respiratory: clear Abdomen: soft, flat, non-tender, present bowel sounds, non-distended Extremities: no edema, no tenderness, no cyanosis Laboratory Tests Test 08/06/19 16:30 08/07/19 06:00 Urine Color Pale yellow Urine Appearance Clear Urine pH 6.5 (4.5-8.0) Urine Specific [place] 1.005 (1.005-1.035) Urine Protein Negative (NEGATIVE) Urine Glucose (UA) Negative (NEGATIVE) Urine Ketones 1+ (NEGATIVE) H Urine Blood Negative (NEGATIVE) Urine Nitrite Negative (NEGATIVE) Urine Bilirubin Negative (NEGATIVE) Urine Urobilinogen Normal MG/DL (0.0-1.0) Urine Leukocyte Esterase Negative (NEGATIVE) Urine RBC 0-2 /HPF (0 - 2) Urine WBC 0-2 /HPF (0 - 2) Urine Squamous Epithelial Cells Few /LPF (NONE/OCC) Urine Bacteria Few /HPF (NONE) Urine Osmolality 201 mOsm/kg (429-449) L Urine Random Sodium 46 mmol/L (20-110) White Blood Count 5.8 K/UL (4.8-10.8) Red Blood Count 4.03 M/UL (4.20-5.40) L Hemoglobin 11.6 G/DL (12.0-16.0) L Hematocrit 35.2 % (37.0-47.0) L Mean Corpuscular Volume 87 FL (80-99) Mean Corpuscular Hemoglobin 28.9 PG (27.0-31.0) Mean Corpuscular Hemoglobin Concent 33.1 G/DL (32.0-36.0) Red Cell Distribution Width 14.3 % (11.6-14.8) Platelet Count 306 K/UL (150-450) Mean Platelet Volume 6.3 FL (6.5-10.1) L Neutrophils (%) (Auto) 54.4 % (45.0-75.0) Lymphocytes (%) (Auto) 27.3 % (20.0-45.0) Monocytes (%) (Auto) 15.0 % (1.0-10.0) H Eosinophils (%) (Auto) 2.3 % (0.0-3.0) Basophils (%) (Auto) 1.1 % (0.0-2.0) Sodium Level 134 MMOL/L (136-145) L Potassium Level 3.8 MMOL/L (3.5-5.1) Chloride Level 101 MMOL/L (98-107) Carbon Dioxide Level 22 MMOL/L (21-32) Anion Gap 11 mmol/L (5-15) Blood Urea Nitrogen 4 mg/dL (7-18) L Creatinine 0.7 MG/DL (0.55-1.30) Estimat Glomerular Filtration Rate mL/min (>60) Glucose Level 106 MG/DL (74-106) Uric Acid 2.8 MG/DL (2.6-7.2) Calcium Level 9.5 MG/DL (8.5-10.1) Phosphorus Level 3.5 MG/DL (2.5-4.9) Magnesium Level 2.4 MG/DL (1.8-2.4) Total Bilirubin 0.4 MG/DL (0.2-1.0) Aspartate Amino Transf (AST/SGOT) 24 U/L (15-37) Alanine Aminotransferase (ALT/SGPT) 8 U/L (12-78) L Alkaline Phosphatase 121 U/L (46-116) H Total Protein 7.1 G/DL (6.4-8.2) Albumin 3.3 G/DL (3.4-5.0) L Globulin 3.8 g/dL Albumin/Globulin Ratio 0.9 (1.0-2.7) L Plan Problems: (1) Hyponatremia (2) Appendicitis (3) Abdominal pain Assessment & Plan: This is a 81-year-old female who presented to the emergency department at [facility] complaining of abdominal pain nausea for 4 days. Afebrile, hemodynamically stable, labs as above. No leukocytosis. CT scan with 11 mm dilated appendix and mild periappendiceal stranding. On examination patient has some mild discomfort in the mid Abdominal and pelvic and left abdominal area. There is no focal tenderness or tenderness at all in the right lower quadrant. No rebound no guarding. CT reviewed with radiology and no clearly identified appendix noted. no wbc esr/crp nml Examination not consistent with appendicitis Patient with abnormal labs and hyponatremia. Given patient's age, medical condition, baseline status, Above findings do not recommend urgent surgical intervention given review of CT with radiologist, nml wbc, nml crp, nml esr, and exam, unlikely appendicitis. diet as tolerated IV fluids IV antibiotics A.m. labs Thank you for this consultation with follow with recommendations Larry Blackman Aug 07, 2019 14:12
--- NOTE | 2019-08-07 15:09 | NUR ---
CASE MANAGEMENT:REVIEW 08/07/19 SI: HYPONATREMIA. APPENDICITIS. ABDOMINAL PAIN MILD ABDOMINAL DISCOMFORT 98.4 61 20 173/85 97% ON RA H/H-11.6/35.2 NA-134 IS: IVF@50/HR IV CIPRO Q12 IV FLAGYL Q8HRS PEPCID PO QD : TELEMETRY STATUS DCP: FROM HOME PLAN: START REGULAR DIET IV ANTIBIOTICS AM LABS
--- NOTE | 2019-08-07 15:12 | Nephrology Progress Note ---
Assessment/Plan Problem List: (1) Hyponatremia (2) Hypertension (3) Abdominal pain Assessment Hyponatremia: Etiology? Depletional vs SIADH ( waiting for U Os and U Na results ) Abd pain: Unlikely Appendicitis HTN Plan Saline and lasix BP meds Monitor lytes further management per urine results Surgical note; This is a 81-year-old female who presented to the emergency department at [facility] complaining of abdominal pain nausea for 4 days. Afebrile, hemodynamically stable, labs as above. No leukocytosis. CT scan with 11 mm dilated appendix and mild periappendiceal stranding. On examination patient has some mild discomfort in the mid Abdominal and pelvic and left abdominal area. There is no focal tenderness or tenderness at all in the right lower quadrant. No rebound no guarding. CT reviewed with radiology and no clearly identified appendix noted. no wbc esr/crp nml Examination not consistent with appendicitis Patient with abnormal labs and hyponatremia. Given patient's age, medical condition, baseline status, Above findings do not recommend urgent surgical intervention given review of CT with radiologist, nml wbc, nml crp, nml esr, and exam, unlikely appendicitis. Subjective ROS Limited/Unobtainable: No Constitutional: Reports: malaise Objective Objective Last 24 Hour Vital Signs Date Time Temp Pulse Resp B/P (MAP) Pulse Ox O2 Delivery O2 Flow Rate FiO2 08/07/19 09:00 Room Air 08/07/19 08:00 98.4 61 20 173/85 (114) 97 08/07/19 08:00 61 08/07/19 04:00 98.1 50 18 126/75 (92) 98 08/07/19 04:00 50 08/07/19 00:00 97.6 59 18 128/67 (87) 97 08/07/19 00:00 59 08/06/19 21:00 Room Air 08/06/19 20:00 97.6 56 18 136/57 (83) 96 08/06/19 20:00 56 08/06/19 16:00 97.2 67 22 145/60 (88) 98 08/06/19 16:00 67 Intake and Output 08/06/19 08/07/19 19:00 07:00 Intake Total 0 ml 850 ml Balance 0 ml 850 ml Intake Oral 150 ml IV Total 0 ml 700 ml # Voids 2 3 Current Medications Medications (Trade) Dose Ordered Sig/Celeste Route PRN Reason Start Time Stop Time Status Last Admin Dose Admin Acetaminophen (Tylenol) 650 mg Q4H PRN ORAL Mild Pain/Temp > 100.5 08/06/19 00:30 09/05/19 00:29 Ciprofloxacin 200 ml @ 200 mls/hr Q12HR IV 08/06/19 09:00 08/13/19 08:59 08/07/19 10:16 Famotidine (Pepcid) 20 mg DAILY ORAL 08/08/19 09:00 09/07/19 08:59 Furosemide (Lasix) 20 mg EVERY 8 HOURS IV 08/07/19 15:15 09/06/19 15:14 UNV Hydralazine HCl (Apresoline) 25 mg Q8HR ORAL 08/07/19 22:00 09/06/19 21:59 UNV Iopamidol (Isovue-300 100ml) 100 ml NOW PRN INJ Radiology Procedure 08/05/19 17:00 08/07/19 16:59 Metronidazole 100 ml @ 100 mls/hr Q8HR IVPB 08/06/19 06:00 08/13/19 05:59 08/07/19 14:13 Morphine Sulfate (Morphine Sulfate) 2 mg Q4H PRN IVP For Pain 08/06/19 00:30 08/13/19 00:29 08/06/19 09:33 Ondansetron HCl (Zofran) 4 mg Q6H PRN IVP Nausea & Vomiting 08/06/19 00:30 09/05/19 00:29 Potassium Chloride (K-Dur) 40 meq ONCE ORAL 08/07/19 15:15 08/07/19 16:15 Sodium Chloride 250 ml @ 30 mls/hr ONCE ONCE IV 08/07/19 15:15 08/07/19 23:34 UNV Laboratory Tests 08/06/19 16:30: Urine Color Pale yellow, Urine Appearance Clear, Urine pH 6.5, Urine Specific [place] 1.005, Urine Protein Negative, Urine Glucose (UA) Negative, Urine Ketones 1+H, Urine Blood Negative, Urine Nitrite Negative, Urine Bilirubin Negative, Urine Urobilinogen Normal, Urine Leukocyte Esterase Negative, Urine RBC 0-2, Urine WBC 0-2, Urine Squamous Epithelial Cells Few, Urine Bacteria Few , Urine Osmolality 201L, Urine Random Sodium 46 08/07/19 06:00: White Blood Count 5.8, Red Blood Count 4.03L, Hemoglobin 11.6L, Hematocrit 35.2L , Mean Corpuscular Volume 87, Mean Corpuscular Hemoglobin 28.9, Mean Corpuscular Hemoglobin Concent 33.1, Red Cell Distribution Width 14.3, Platelet Count 306, Mean Platelet Volume 6.3L, Neutrophils (%) (Auto) 54.4, Lymphocytes ( %) (Auto) 27.3, Monocytes (%) (Auto) 15.0H, Eosinophils (%) (Auto) 2.3, Basophils (%) (Auto) 1.1, Sodium Level 134L, Potassium Level 3.8, Chloride Level 101, Carbon Dioxide Level 22, Anion Gap 11, Blood Urea Nitrogen 4L, Creatinine 0.7, Estimat Glomerular Filtration Rate , Glucose Level 106, Uric Acid 2.8, Calcium Level 9.5, Phosphorus Level 3.5, Magnesium Level 2.4, Total Bilirubin 0.4, Aspartate Amino Transf (AST/SGOT) 24, Alanine Aminotransferase ( ALT/SGPT) 8L, Alkaline Phosphatase 121H, Total Protein 7.1, Albumin 3.3L, Globulin 3.8, Albumin/Globulin Ratio 0.9L Height (Feet): 4 Height (Inches): 8.00 Weight (Pounds): 115 Cardiovascular: bradycardia Respiratory/Chest: decreased breath sounds Abdomen: soft Neal Huffman MD Aug 07, 2019 15:12
[2019-08-07] MEDS ORDERED: HydrALAZINE 25mg tab ORAL PRN (15:15)
[2019-08-07 16:00] VITALS: BP 176/74
[2019-08-07] MEDS ORDERED: NaCl 3% 500ml 250 ML IV ONE (16:00)
--- NOTE | 2019-08-07 16:45 | NUR ---
*-* INSURANCE *-* ALL CLINICALS AND REVIEWS HAVE BEEN FAXED TO: [facility] KRISHNA# [id number] NCM: ARG P: [phone] F: [phone] DISCHARGE PLANNING NEEDS P: [phone]
[2019-08-07] MEDS: Morphine Sulfate 2mg/ml Inj(IV/IM USE ONLY) IVP PRN (17:21)
--- NOTE | 2019-08-07 19:42 | NUR ---
HAND-OFF: Report given to Nicki/RN, Patient asleep, no acute distress. Endorsed plan of care.
[2019-08-07 20:00] VITALS: BP 124/70
--- NOTE | 2019-08-07 20:39 | General Progress Note ---
Assessment/Plan Problem List: (1) Abdominal pain ICD Codes: R10.9 - Unspecified abdominal pain SNOMED: 03950670 (2) Hyponatremia ICD Codes: E87.1 - Hypo-osmolality and hyponatremia SNOMED: 19779767 (3) Hypertension ICD Codes: I10 - Essential (primary) hypertension SNOMED: 89537424 Status: progressing Assessment/Plan: lyte abnormality improving abdominal pain improving htn vitals stable Subjective ROS Limited/Unobtainable: Yes Constitutional: Reports: no symptoms Allergies: Coded Allergies: PENICILLINS (Unverified Allergy, Unknown, 08/05/19) Objective Last 24 Hour Vital Signs Date Time Temp Pulse Resp B/P (MAP) Pulse Ox O2 Delivery O2 Flow Rate FiO2 08/07/19 20:18 Room Air 08/07/19 20:00 87 08/07/19 20:00 98.0 95 18 124/70 (88) 97 08/07/19 16:00 76 08/07/19 16:00 97.1 61 20 176/74 (108) 99 08/07/19 15:58 176/74 08/07/19 12:00 56 08/07/19 12:00 97.1 53 20 185/78 (113) 99 08/07/19 09:00 Room Air 08/07/19 08:00 98.4 61 20 173/85 (114) 97 08/07/19 08:00 61 08/07/19 04:00 98.1 50 18 126/75 (92) 98 08/07/19 04:00 50 08/07/19 00:00 97.6 59 18 128/67 (87) 97 08/07/19 00:00 59 08/06/19 21:00 Room Air Intake and Output 08/06/19 08/07/19 19:00 07:00 Intake Total 0 ml 850 ml Balance 0 ml 850 ml Intake Oral 150 ml IV Total 0 ml 700 ml # Voids 2 3 Laboratory Tests 08/07/19 06:00: White Blood Count 5.8, Red Blood Count 4.03L, Hemoglobin 11.6L, Hematocrit 35.2L , Mean Corpuscular Volume 87, Mean Corpuscular Hemoglobin 28.9, Mean Corpuscular Hemoglobin Concent 33.1, Red Cell Distribution Width 14.3, Platelet Count 306, Mean Platelet Volume 6.3L, Neutrophils (%) (Auto) 54.4, Lymphocytes ( %) (Auto) 27.3, Monocytes (%) (Auto) 15.0H, Eosinophils (%) (Auto) 2.3, Basophils (%) (Auto) 1.1, Sodium Level 134L, Potassium Level 3.8, Chloride Level 101, Carbon Dioxide Level 22, Anion Gap 11, Blood Urea Nitrogen 4L, Creatinine 0.7, Estimat Glomerular Filtration Rate , Glucose Level 106, Uric Acid 2.8, Calcium Level 9.5, Phosphorus Level 3.5, Magnesium Level 2.4, Total Bilirubin 0.4, Aspartate Amino Transf (AST/SGOT) 24, Alanine Aminotransferase ( ALT/SGPT) 8L, Alkaline Phosphatase 121H, Total Protein 7.1, Albumin 3.3L, Globulin 3.8, Albumin/Globulin Ratio 0.9L Height (Feet): 4 Height (Inches): 8.00 Weight (Pounds): 115 Cardiovascular: normal rate Becca Lewis MD Aug 07, 2019 20:39
[2019-08-07] MEDS: HydrALAZINE 25mg tab ORAL SCH (21:23)
[2019-08-08] VITALS: BP 131/70
[2019-08-08 03:59] VITALS: BP 129/81
[2019-08-08] MEDS: HydrALAZINE 25mg tab ORAL SCH ×2 (06:22→13:22)
[2019-08-08 07:11] LABS: BASOPHILS % (AUTO) 0.6 % (0.0-2.0); EOSINOPHILS % (AUTO) 0.7 % (0.0-3.0); HEMATOCRIT 35.3 % (37.0-47.0); HEMOGLOBIN 11.6 G/DL (12.0-16.0); MEAN CORPUSCULAR VOLUME 87 FL (80-99); MONOCYTES % (AUTO) 10.5 % (1.0-10.0); NEUTROPHILS % (AUTO) 67.3 % (45.0-75.0); PLATELET COUNT 319 K/UL (150-450); RED BLOOD COUNT 4.04 M/UL (4.20-5.40); RED CELL DISTRIBUTION WIDTH 14.7 % (11.6-14.8); WHITE BLOOD COUNT 9.2 K/UL (4.8-10.8)
[2019-08-08 07:26] LABS: ALANINE AMINOTRANSFERASE 9 U/L (12-78); ALBUMIN 3.3 G/DL (3.4-5.0); ALBUMIN/GLOBULIN RATIO 0.8 (1.0-2.7); ALKALINE PHOSPHATASE 122 U/L (46-116); ANION GAP 10 mmol/L (5-15); ASPARTATE AMINO TRANSFERASE 20 U/L (15-37); BILIRUBIN,TOTAL 0.4 MG/DL (0.2-1.0); BLOOD UREA NITROGEN 6 mg/dL (7-18); CALCIUM 9.4 MG/DL (8.5-10.1); CARBON DIOXIDE 24 MMOL/L (21-32); CHLORIDE 102 MMOL/L (98-107); CREATININE 0.9 MG/DL (0.55-1.30); SODIUM 136 MMOL/L (136-145)
[2019-08-08 07:46] VITALS: BP 110/74
[2019-08-08 07:48] LABS: PHOSPHORUS 3.5 MG/DL (2.5-4.9)
--- NOTE | 2019-08-08 09:01 | Nephrology Progress Note ---
Assessment/Plan Problem List: (1) Hyponatremia (2) Hypertension (3) Abdominal pain Assessment Hyponatremia: Etiology? Depletional vs SIADH ( waiting for U Os and U Na results ) Abd pain: Unlikely Appendicitis HTN Plan Saline and lasix trial successful BP meds Monitor lytes further management per urine results Surgical note; This is a 81-year-old female who presented to the emergency department at [facility] complaining of abdominal pain nausea for 4 days. Afebrile, hemodynamically stable, labs as above. No leukocytosis. CT scan with 11 mm dilated appendix and mild periappendiceal stranding. On examination patient has some mild discomfort in the mid Abdominal and pelvic and left abdominal area. There is no focal tenderness or tenderness at all in the right lower quadrant. No rebound no guarding. CT reviewed with radiology and no clearly identified appendix noted. no wbc esr/crp nml Examination not consistent with appendicitis Patient with abnormal labs and hyponatremia. Given patient's age, medical condition, baseline status, Above findings do not recommend urgent surgical intervention given review of CT with radiologist, nml wbc, nml crp, nml esr, and exam, unlikely appendicitis. Subjective ROS Limited/Unobtainable: No Constitutional: Reports: malaise Objective Objective Last 24 Hour Vital Signs Date Time Temp Pulse Resp B/P (MAP) Pulse Ox O2 Delivery O2 Flow Rate FiO2 08/08/19 07:46 98.6 80 20 110/74 (86) 95 08/08/19 06:22 129/81 08/08/19 04:00 63 08/08/19 03:59 97.5 73 18 129/81 (97) 97 08/08/19 00:00 73 08/08/19 00:00 98.0 77 18 131/70 (90) 95 08/07/19 21:23 124/70 08/07/19 20:18 Room Air 08/07/19 20:00 87 08/07/19 20:00 98.0 95 18 124/70 (88) 97 08/07/19 16:00 76 08/07/19 16:00 97.1 61 20 176/74 (108) 99 08/07/19 15:58 176/74 08/07/19 12:00 56 08/07/19 12:00 97.1 53 20 185/78 (113) 99 Intake and Output 08/07/19 08/08/19 18:59 06:59 Intake Total 510 ml Balance 510 ml Intake Oral 120 ml IV Total 390 ml # Voids 2 5 # Bowel Movements 2 Laboratory Tests 08/08/19 05:49: White Blood Count 9.2#, Red Blood Count 4.04L, Hemoglobin 11.6L, Hematocrit 35.3L, Mean Corpuscular Volume 87, Mean Corpuscular Hemoglobin 28.7, Mean Corpuscular Hemoglobin Concent 32.9, Red Cell Distribution Width 14.7, Platelet Count 319, Mean Platelet Volume 6.3L, Neutrophils (%) (Auto) 67.3, Lymphocytes ( %) (Auto) 21.0, Monocytes (%) (Auto) 10.5H, Eosinophils (%) (Auto) 0.7, Basophils (%) (Auto) 0.6, Sodium Level 136, Potassium Level 4.0, Chloride Level 102, Carbon Dioxide Level 24, Anion Gap 10, Blood Urea Nitrogen 6L, Creatinine 0.9, Estimat Glomerular Filtration Rate , Glucose Level 109H, Uric Acid 3.6, Calcium Level 9.4, Phosphorus Level 3.5, Magnesium Level 2.2, Total Bilirubin 0.4, Aspartate Amino Transf (AST/SGOT) 20, Alanine Aminotransferase (ALT/SGPT) 9L, Alkaline Phosphatase 122H, C-Reactive Protein, Quantitative < 0.4, Total Protein 7.4, Albumin 3.3L, Globulin 4.1, Albumin/Globulin Ratio 0.8L Height (Feet): 4 Height (Inches): 8.00 Weight (Pounds): 115 General Appearance: no apparent distress Objective no change Neal Huffman MD Aug 08, 2019 09:01
--- NOTE | 2019-08-08 09:36 | NUR ---
NURSE NOTES: Report from ADARSH Caceres. Upon initial assessment patient appeared alert but disoriented to time and situation. Calm, cooperative affect. Bed alarm on for safety and bed in lowest locked position. Patient stated that she needed to toilet--assist x1 to commode with max handheld assist. Brown BM, soft and voided clear yellow in commode. Hygiene provided. Ate 25% of chopped diet and stated she was full. THis RN SPoke with Dr Lewis at 830am who stated patient was ready for DC dependent on Dr Concepcion's clearance. This RN spoke with Dr Concepcion at 9am who stated he needed to review and assess patient and then would call back if she was cleared to go home. VSS. Phone and call calvin in reach. No sign of cardiac or respiratory distress, breathing easily on RA. [facility]'d [facility]. Addendum: 08/08/19 at 1050 by Elijah Caban RN Dr Concepcion was at bedside and left a note--calling Dr Yeh to clarify if patient could leave. Dr Yeh confirmed patient is cleared to DC at 1049am. Will commence to/rb dc instructions given by Dr Monreal this morning. Addendum: 08/08/19 at 1345 by Elijah Caban RN THis RN spoke with granddaughter, Tamara, who is primary sales clerk food for patient . [facility] agreed [facility] after relaying that patient was deemed not a candidate for surgery and that GI doctor and admitting dr agreed [facility] dc plan home. Just before lunch , patient's son, Gibran, stopped by room and voiced concern for readiness for dc r/t patient's appendix. Spoke with daughter again to address any concerns. GrandDaughter appreciated explanation and agreed she was still comfortable wt taking patient home, but appreciate further reassurance from Dr regarding possible surgery needs. Dr Wei Munroe contacted who confirmed that patient doesn't need surgery now. DC planned for 4pm with abiodun after she finishes work. Addendum: 08/08/19 at 1438 by Elijah Caban RN 1430: Patient checked and repositioned in bed. No void currently (patient dry and clean). Skin intact with no redness--pillow supports used. Enquired again if patient had any abdominal pain--or any pain--patient clearly answered "no pain" as previously. Addendum: 08/08/19 at 1626 by Elijah Caban RN 1530: Patient removed tele monitor again (mulitple times throughout shift patient removed and RN replaced)--monitor not replaced dt 1600 time for transportation and dc home with abiodun. Addendum: 08/08/19 at 1627 by Elijah Caban RN 1630: VSS and patient repositioned in bed. OOB to commode for voiding. Charting at patient bedside awaiting arrival of abiodun for dc home. Addendum: 08/08/19 at 1707 by Elijah Caban RN 1700: This RN removed IV. Patient denied pain at time of dc. Reviewed dc instructions with abiodun including giving antibiotic prescription (allijj to black pickler at her local pharmacy) and answering all questions. Called for wheelchair. Patient to return home by private car. Verified all belongings with patient at time of dc. Patient and abiodun satisfied [facility] and have no further questions at this time.
--- NOTE | 2019-08-08 10:19 | General Progress Note ---
Assessment/Plan Status: progressing Assessment/Plan: abd pain, mostly suprapubic CT reviewed surg note appreciated, no plans for surg for now abx no need for GI procedures will fu Subjective ROS Limited/Unobtainable: Yes Allergies: Coded Allergies: PENICILLINS (Unverified Allergy, Unknown, 08/05/19) Objective Last 24 Hour Vital Signs Date Time Temp Pulse Resp B/P (MAP) Pulse Ox O2 Delivery O2 Flow Rate FiO2 08/08/19 09:00 Room Air 08/08/19 08:00 81 08/08/19 07:46 98.6 80 20 110/74 (86) 95 08/08/19 06:22 129/81 08/08/19 04:00 63 08/08/19 03:59 97.5 73 18 129/81 (97) 97 08/08/19 00:00 73 08/08/19 00:00 98.0 77 18 131/70 (90) 95 08/07/19 21:23 124/70 08/07/19 20:18 Room Air 08/07/19 20:00 87 08/07/19 20:00 98.0 95 18 124/70 (88) 97 08/07/19 16:00 76 08/07/19 16:00 97.1 61 20 176/74 (108) 99 08/07/19 15:58 176/74 08/07/19 12:00 56 08/07/19 12:00 97.1 53 20 185/78 (113) 99 Intake and Output 08/07/19 08/08/19 18:59 06:59 Intake Total 510 ml Balance 510 ml Intake Oral 120 ml IV Total 390 ml # Voids 2 5 # Bowel Movements 2 Laboratory Tests 08/08/19 05:49: White Blood Count 9.2#, Red Blood Count 4.04L, Hemoglobin 11.6L, Hematocrit 35.3L, Mean Corpuscular Volume 87, Mean Corpuscular Hemoglobin 28.7, Mean Corpuscular Hemoglobin Concent 32.9, Red Cell Distribution Width 14.7, Platelet Count 319, Mean Platelet Volume 6.3L, Neutrophils (%) (Auto) 67.3, Lymphocytes ( %) (Auto) 21.0, Monocytes (%) (Auto) 10.5H, Eosinophils (%) (Auto) 0.7, Basophils (%) (Auto) 0.6, Sodium Level 136, Potassium Level 4.0, Chloride Level 102, Carbon Dioxide Level 24, Anion Gap 10, Blood Urea Nitrogen 6L, Creatinine 0.9, Estimat Glomerular Filtration Rate , Glucose Level 109H, Uric Acid 3.6, Calcium Level 9.4, Phosphorus Level 3.5, Magnesium Level 2.2, Total Bilirubin 0.4, Aspartate Amino Transf (AST/SGOT) 20, Alanine Aminotransferase (ALT/SGPT) 9L, Alkaline Phosphatase 122H, C-Reactive Protein, Quantitative < 0.4, Total Protein 7.4, Albumin 3.3L, Globulin 4.1, Albumin/Globulin Ratio 0.8L Procedure: CT Abdomen Pelvis w/Contrast Clinical Indication: Abdominal pain with constipation for 4 days, also mild nausea Technique: No oral contrast utilized, per emergency room physician request IV administration nonionic contrast. Venous phase spiral acquisition obtained through the abdomen and pelvis. Multiplanar reconstructions were generated. Total dose length product 542.02 mGycm. CTDIvol(s) 11.76 mGy. Dose reduction achieved using automated exposure control Comparison: none Findings: There is some image degradation due to motion artifact. The appendix is poorly demonstrated, due to motion artifact, possibly distended particularly distally but difficult to state with certainty. There is evidence of rectal fecal incontinence. The rectum is mildly distended by stool. There is colonic diverticulosis. No evidence of diverticulitis. The proximal colonic anatomy is not well demonstrated. Fluid-filled small bowel loops are seen in the right upper quadrant, but no randy small bowel distention. No free or loculated intraperitoneal gas or fluid is evident. The distal esophagus, stomach, duodenum are grossly unremarkable. The liver, gallbladder, bile ducts, pancreas, spleen, adrenals are unremarkable. The kidneys demonstrate mild bilateral hydronephrosis. The bladder is markedly distended. The uterus and adnexal structures appear unremarkable. The included lung bases are grossly clear. The bones demonstrate degenerative spondylosis changes. 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 Impression: Limited exam due to motion artifact Equivocally distended appendix, not well visualized due to the above. Correlate with clinical findings Distended urinary bladder. Mild resultant hydronephrosis Incidental findings as noted, including degenerative spondylosis and lumbar levoscoliotic deformity. This agrees with the preliminary interpretation provided overnight by [employer] [facility] [employer] teleradiology service. The CT scanner at [facility] is accredited by the [employer] and the scans are performed using protocols designed to limit radiation exposure to as low as reasonably achievable to attain images of sufficient resolution adequate for diagnostic evaluation. Height (Feet): 4 Height (Inches): 8.00 Weight (Pounds): 115 General Appearance: alert EENT: normal ENT inspection Neck: supple Cardiovascular: normal rate Respiratory/Chest: lungs clear Abdomen: soft, decreased bowel sounds, tender Extremities: non-tender Jourdan Concepcion MD Aug 08, 2019 10:19
[2019-08-08 12:00] VITALS: BP 145/68
--- NOTE | 2019-08-08 12:49 | Infectious Diseases Prog Note ---
Assessment/Plan Assessment/Plan IMPRESSION: also acute appendicitis, Severe hyponatremia, penicillin allergy, hypertension, . RECOMMENDATIONS: Continue Cipro and Flagyl X 3 days Agree with discharge Subjective ROS Limited/Unobtainable: Yes Respiratory: Reports: no symptoms Gastrointestinal/Abdominal: Reports: no symptoms Allergies: Coded Allergies: PENICILLINS (Unverified Allergy, Unknown, 08/05/19) Objective Vital Signs Last 24 Hour Vital Signs Date Time Temp Pulse Resp B/P (MAP) Pulse Ox O2 Delivery O2 Flow Rate FiO2 08/08/19 09:00 Room Air 08/08/19 08:00 81 08/08/19 07:46 98.6 80 20 110/74 (86) 95 08/08/19 06:22 129/81 08/08/19 04:00 63 08/08/19 03:59 97.5 73 18 129/81 (97) 97 08/08/19 00:00 73 08/08/19 00:00 98.0 77 18 131/70 (90) 95 08/07/19 21:23 124/70 08/07/19 20:18 Room Air 08/07/19 20:00 87 08/07/19 20:00 98.0 95 18 124/70 (88) 97 08/07/19 16:00 76 08/07/19 16:00 97.1 61 20 176/74 (108) 99 08/07/19 15:58 176/74 Height (Feet): 4 Height (Inches): 8.00 Weight (Pounds): 115 General Appearance: no acute distress HEENT: mucous membranes moist Respiratory/Chest: lungs clear Cardiovascular: normal rate Abdomen: soft, non tender Extremities: no edema Neurologic/Psychiatric: alert, responsive Laboratory Tests Test 08/08/19 05:49 White Blood Count 9.2 K/UL (4.8-10.8) # Red Blood Count 4.04 M/UL (4.20-5.40) L Hemoglobin 11.6 G/DL (12.0-16.0) L Hematocrit 35.3 % (37.0-47.0) L Mean Corpuscular Volume 87 FL (80-99) Mean Corpuscular Hemoglobin 28.7 PG (27.0-31.0) Mean Corpuscular Hemoglobin Concent 32.9 G/DL (32.0-36.0) Red Cell Distribution Width 14.7 % (11.6-14.8) Platelet Count 319 K/UL (150-450) Mean Platelet Volume 6.3 FL (6.5-10.1) L Neutrophils (%) (Auto) 67.3 % (45.0-75.0) Lymphocytes (%) (Auto) 21.0 % (20.0-45.0) Monocytes (%) (Auto) 10.5 % (1.0-10.0) H Eosinophils (%) (Auto) 0.7 % (0.0-3.0) Basophils (%) (Auto) 0.6 % (0.0-2.0) Sodium Level 136 MMOL/L (136-145) Potassium Level 4.0 MMOL/L (3.5-5.1) Chloride Level 102 MMOL/L (98-107) Carbon Dioxide Level 24 MMOL/L (21-32) Anion Gap 10 mmol/L (5-15) Blood Urea Nitrogen 6 mg/dL (7-18) L Creatinine 0.9 MG/DL (0.55-1.30) Estimat Glomerular Filtration Rate mL/min (>60) Glucose Level 109 MG/DL (74-106) H Uric Acid 3.6 MG/DL (2.6-7.2) Calcium Level 9.4 MG/DL (8.5-10.1) Phosphorus Level 3.5 MG/DL (2.5-4.9) Magnesium Level 2.2 MG/DL (1.8-2.4) Total Bilirubin 0.4 MG/DL (0.2-1.0) Aspartate Amino Transf (AST/SGOT) 20 U/L (15-37) Alanine Aminotransferase (ALT/SGPT) 9 U/L (12-78) L Alkaline Phosphatase 122 U/L (46-116) H C-Reactive Protein, Quantitative < 0.4 mg/dL (0.00-0.90) Total Protein 7.4 G/DL (6.4-8.2) Albumin 3.3 G/DL (3.4-5.0) L Globulin 4.1 g/dL Albumin/Globulin Ratio 0.8 (1.0-2.7) L Current Medications Medications (Trade) Dose Ordered Sig/Celeste Route PRN Reason Start Time Stop Time Status Last Admin Dose Admin Acetaminophen (Tylenol) 650 mg Q4H PRN ORAL Mild Pain/Temp > 100.5 08/06/19 00:30 09/05/19 00:29 Ciprofloxacin 200 ml @ 200 mls/hr Q12HR IV 08/06/19 09:00 08/13/19 08:59 08/08/19 08:06 Famotidine (Pepcid) 20 mg DAILY ORAL 08/08/19 09:00 09/07/19 08:59 08/08/19 08:08 Hydralazine HCl (Apresoline) 25 mg Q4H PRN ORAL bp over 160 syst 08/07/19 15:15 09/06/19 15:14 08/07/19 15:58 Hydralazine HCl (Apresoline) 25 mg Q8HR ORAL 08/07/19 22:00 09/06/19 21:59 08/08/19 06:22 Metronidazole 100 ml @ 100 mls/hr Q8HR IVPB 08/06/19 06:00 08/13/19 05:59 08/08/19 06:22 Morphine Sulfate (Morphine Sulfate) 2 mg Q4H PRN IVP For Pain 08/06/19 00:30 08/13/19 00:29 08/07/19 17:21 Ondansetron HCl (Zofran) 4 mg Q6H PRN IVP Nausea & Vomiting 08/06/19 00:30 09/05/19 00:29 08/07/19 18:46 Isai Pride MD Aug 08, 2019 12:49
--- NOTE | 2019-08-08 14:50 | Surgery Progress Note ---
Surgery Progress Note Subjective Symptoms: improved, tolerating diet, voiding well, passing flatus, BM, pain decreased Objective Last 24 Hour Vital Signs Date Time Temp Pulse Resp B/P (MAP) Pulse Ox O2 Delivery O2 Flow Rate FiO2 08/08/19 13:22 145/68 08/08/19 12:00 78 08/08/19 12:00 97.6 84 18 145/68 (93) 98 08/08/19 09:00 Room Air 08/08/19 08:00 81 08/08/19 07:46 98.6 80 20 110/74 (86) 95 08/08/19 06:22 129/81 08/08/19 04:00 63 08/08/19 03:59 97.5 73 18 129/81 (97) 97 08/08/19 00:00 73 08/08/19 00:00 98.0 77 18 131/70 (90) 95 08/07/19 21:23 124/70 08/07/19 20:18 Room Air 08/07/19 20:00 87 08/07/19 20:00 98.0 95 18 124/70 (88) 97 08/07/19 16:00 76 08/07/19 16:00 97.1 61 20 176/74 (108) 99 08/07/19 15:58 176/74 I&O Intake and Output 08/07/19 08/08/19 19:00 07:00 Intake Total 510 ml Balance 510 ml Intake Oral 120 ml IV Total 390 ml # Voids 2 5 # Bowel Movements 2 Cardiovascular: RSR Respiratory: clear Abdomen: soft, flat, non-tender, present bowel sounds, non-distended Extremities: no edema, no tenderness, no cyanosis Laboratory Tests Test 08/08/19 05:49 White Blood Count 9.2 K/UL (4.8-10.8) # Red Blood Count 4.04 M/UL (4.20-5.40) L Hemoglobin 11.6 G/DL (12.0-16.0) L Hematocrit 35.3 % (37.0-47.0) L Mean Corpuscular Volume 87 FL (80-99) Mean Corpuscular Hemoglobin 28.7 PG (27.0-31.0) Mean Corpuscular Hemoglobin Concent 32.9 G/DL (32.0-36.0) Red Cell Distribution Width 14.7 % (11.6-14.8) Platelet Count 319 K/UL (150-450) Mean Platelet Volume 6.3 FL (6.5-10.1) L Neutrophils (%) (Auto) 67.3 % (45.0-75.0) Lymphocytes (%) (Auto) 21.0 % (20.0-45.0) Monocytes (%) (Auto) 10.5 % (1.0-10.0) H Eosinophils (%) (Auto) 0.7 % (0.0-3.0) Basophils (%) (Auto) 0.6 % (0.0-2.0) Sodium Level 136 MMOL/L (136-145) Potassium Level 4.0 MMOL/L (3.5-5.1) Chloride Level 102 MMOL/L (98-107) Carbon Dioxide Level 24 MMOL/L (21-32) Anion Gap 10 mmol/L (5-15) Blood Urea Nitrogen 6 mg/dL (7-18) L Creatinine 0.9 MG/DL (0.55-1.30) Estimat Glomerular Filtration Rate mL/min (>60) Glucose Level 109 MG/DL (74-106) H Uric Acid 3.6 MG/DL (2.6-7.2) Calcium Level 9.4 MG/DL (8.5-10.1) Phosphorus Level 3.5 MG/DL (2.5-4.9) Magnesium Level 2.2 MG/DL (1.8-2.4) Total Bilirubin 0.4 MG/DL (0.2-1.0) Aspartate Amino Transf (AST/SGOT) 20 U/L (15-37) Alanine Aminotransferase (ALT/SGPT) 9 U/L (12-78) L Alkaline Phosphatase 122 U/L (46-116) H C-Reactive Protein, Quantitative < 0.4 mg/dL (0.00-0.90) Total Protein 7.4 G/DL (6.4-8.2) Albumin 3.3 G/DL (3.4-5.0) L Globulin 4.1 g/dL Albumin/Globulin Ratio 0.8 (1.0-2.7) L Plan Problems: (1) Hyponatremia (2) Appendicitis (3) Abdominal pain Assessment & Plan: This is a 81-year-old female who presented to the emergency department at [facility] complaining of abdominal pain nausea for 4 days. Afebrile, hemodynamically stable, labs as above. No leukocytosis. CT scan with 11 mm dilated appendix and mild periappendiceal stranding. On examination patient has some mild discomfort in the mid Abdominal and pelvic and left abdominal area. There is no focal tenderness or tenderness at all in the right lower quadrant. No rebound no guarding. CT reviewed with radiology and no clearly identified appendix noted. no wbc esr/crp nml Examination not consistent with appendicitis Patient with abnormal labs and hyponatremia. Given patient's age, medical condition, baseline status, Above findings do not recommend urgent surgical intervention given review of CT with radiologist, nml wbc, nml crp, nml esr, and exam, unlikely appendicitis. diet as tolerated IV fluids IV antibiotics transition to oral d/c planning Thank you for this consultation with follow with recommendations Larry Blackman Aug 08, 2019 14:50
[2019-08-08 15:33] VITALS: BP 119/56
--- NOTE | 2019-08-10 16:21 | Discharge Summary ---
Discharge Summary Discharge Summary _ DATE OF ADMISSION: 08/05/2019 DATE OF DISCHARGE: 08/08/2019 DISCHARGED BY: Dr. Becca Hutton CONSULTANTS: Dr. Larry Huffman [facility] COURSE: Patient is an 89-year-old female, who presented to ED for evaluation of abdominal pain and nausea for 4 days. Pain was located in the mid abdomen, described to be sharp, 8 out of 10. She denied fever or chills. She denied chest pain or shortness of breath. Denied diarrhea. Denied aggravating or relieving factors. She has medical history of asthma. On evaluation at the ED, blood pressure was elevated 178/84. Blood work did not show any leukocytosis. Hemoglobin 11.4 and hematocrit 32. Sodium was 112. Potassium 4.2. Chloride 81. BUN and creatinine were normal. Lipase normal. LFTs normal. CT of the abdomen and pelvis showed an enlarged appendix with mild. No free air. No fluid collection. No SBO or diverticulitis. Significantly distended bladder. Mild bilateral hydronephrosis. No ureteral calculus. She was given IV bolus. Surgical consultation was obtained. She was placed on n.p.o. She was continued on IV fluids. She was started on ciprofloxacin and Flagyl. On examination, there was no focal tenderness. No rebound or guarding. Patient did not require urgent surgical intervention. ESR and CRP normal. There was no nausea, vomiting, fever or chills. No leukocytosis. Diet was advanced. Urine osmolality 201. Random urine sodium 46. Patient improved with IV hydration and Lasix. She was given hypertonic saline. Abdominal pain decreased. Patient was tolerating diet. Electrolytes normalized. She was eventually discharged home. FINAL DIAGNOSES: Severe hyponatremia Hypertension Abdominal pain, unlikely appendicitis DISPOSITION: Patient was discharged home. DISCHARGE MEDICATIONS: Refer to Discharge Medication List. DISCHARGE INSTRUCTIONS: Follow-up in a week. I have been assigned to complete a discharge summary on this account, I was not involved with the patient's management.--AURELIA May Jacqueline Robles NP Aug 10, 2019 16:21
--- NOTE | 2019-08-11 15:15 | NUR ---
*-* INSURANCE *-* discharge summary HAVE BEEN FAXED TO: DOMENICO KRISHNA# [id number] NCM: ARG P: [phone] F: [phone] DISCHARGE PLANNING NEEDS P: [phone]
== END 2019-08-08 17:14 | disposition home or self-care (01) | DRG 641 ==
LOC: EDBD 16:37 → EMR 17:20 → EDBEDREQ 18:42 → 2E 21:35 → EDBEDREQ 22:29 → 2E 08-06 04:49
DX: E87.1 Hypo-osmolality and hyponatremia (principal); R10.9 Unspecified abdominal pain; I10 Essential (primary) hypertension; K37 Unspecified appendicitis; Z88.0 Allergy status to penicillin
CPT/HCPCS: 36415; 74177; 80053; 80061; 81001; 83690; 83735; 83930; 83935; 84100; 84300; 84443; 84550; 85025; 85610; 85651; 85730; 86140; 86850; 86900; 86901; 93005; 96361; 96365; 96368; 96375; 99291; J2405; J8499

== ENCOUNTER 2019-08-19 14:56 | Inpatient (IN) | payer OTHER ==
[~2019-08-19] VITALS: Ht 152.4 cm; Wt 50.5 kg
--- NOTE | 2019-08-19 15:00 | NUR ---
ED Nurse Note: Eunice walked into ED accompanied by daughter c/o lower abdominal pain accompanied by urinary hesitancy, states that she has not been able to void for the past 3 days, patient rates her pain a 10/10 pain. patient is alert and oriented x4, ambulotry with a cane, IV started on left forearm 20 gauge and placed on a monitor, will wait for further orders
[2019-08-19 15:10] VITALS: BP 117/69
--- NOTE | 2019-08-19 15:10 | NUR ---
ED Nurse Note: inserted a straight cath into patient, 400mL of urine came out
--- NOTE | 2019-08-19 15:15 | NUR ---
ED Nurse Note: Patient has signed Ct consent form
--- NOTE | 2019-08-19 15:23 | Emergency Room Report ---
History of Present Illness General Chief Complaint: Abdominal Pain Source: Patient, Family Member Present Illness HPI Disclaimer: Please note that this report is being documented using Qio[employer] technology. This can lead to erroneous entry secondary to incorrect interpretation by the dictating instrument. HPI: 89-year-old female with a history of hypertension and recent admission to this hospital 2 weeks ago complaining of abdominal pain and diagnosed with hyponatremia presents for evaluation of constipation and difficulty passing urine. Since her discharge from the hospital she states she has had very few bowel movements. Denies diarrhea. According to her caregiver who is present at bedside she was given medications for constipation which she has been taking. States her abdominal distention has become significant over the past few days. She is not been able to pass urine for the past 2 days. She feels a fullness and pressure in the lower pelvis. She reports nausea but no vomiting. Denies fevers, chills, cough, URI symptoms or other changes in her health otherwise. PMH: Hypertension PSH: See chart Allergies: Penicillins Social Hx: Denies alcohol or drug abuse Allergies: Coded Allergies: PENICILLINS (Unverified Allergy, Unknown, 08/05/19) Patient History Last Menstrual Period: na Nursing Documentation-PMH Past Medical History: No History, Except For Hx Cardiac Problems: Yes Hx Hypertension: Yes Hx Cancer: No Hx Gastrointestinal Problems: Yes - appendicitis Hx Neurological Problems: No Review of Systems All Other Systems: negative except mentioned in HPI Physical Exam Vital Signs Date Time Temp Pulse Resp B/P (MAP) Pulse Ox O2 Delivery O2 Flow Rate FiO2 08/19/19 15:06 97.9 73 20 117/69 (85) 96 Room Air General: Awake and alert, no acute distress HEENT: NC/AT. EOMI. Cardiovascular: RRR. S1 and S2 normal. No murmur appreciated Resp: Normal work of breathing. No cough, wheezing or crackles appreciated Abdomen: Abdomen is soft, slightly distended but nontender. No rebound. No masses appreciated Skin: Intact. No abrasions, laceration or rash over the exposed skin MSK: Normal tone and bulk. Moving all extremities. No obvious deformity. Neuro: Awake and alert. Mentating appropriately. Medical Decision Making Diagnostic Impression: Primary Impression: Abdominal pain Additional Impressions: Diverticulosis Fatty liver Lung nodule Constipation ER Course 89-year-old female presents for evaluation of 2 days inability to pass urine and 1 week of constipation. Similar presentation 2 weeks ago where a CT scan showed a dilated appendix with periappendiceal stranding. Will repeat a CT scan , labs and urinalysis by catheterization if necessary. Laboratory Tests Test 08/19/19 15:30 White Blood Count 8.6 K/UL (4.8-10.8) Red Blood Count 4.02 M/UL (4.20-5.40) L Hemoglobin 11.8 G/DL (12.0-16.0) L Hematocrit 35.1 % (37.0-47.0) L Mean Corpuscular Volume 87 FL (80-99) Mean Corpuscular Hemoglobin 29.3 PG (27.0-31.0) Mean Corpuscular Hemoglobin Concent 33.5 G/DL (32.0-36.0) Red Cell Distribution Width 14.0 % (11.6-14.8) Platelet Count 295 K/UL (150-450) Mean Platelet Volume 6.5 FL (6.5-10.1) Neutrophils (%) (Auto) 70.0 % (45.0-75.0) Lymphocytes (%) (Auto) 19.2 % (20.0-45.0) L Monocytes (%) (Auto) 7.4 % (1.0-10.0) Eosinophils (%) (Auto) 2.5 % (0.0-3.0) Basophils (%) (Auto) 0.9 % (0.0-2.0) Urine Color Pale yellow Urine Appearance Clear Urine pH 6.5 (4.5-8.0) Urine Specific [place] 1.010 (1.005-1.035) Urine Protein Negative (NEGATIVE) Urine Glucose (UA) Negative (NEGATIVE) Urine Ketones Negative (NEGATIVE) Urine Blood Negative (NEGATIVE) Urine Nitrite Negative (NEGATIVE) Urine Bilirubin Negative (NEGATIVE) Urine Urobilinogen Normal MG/DL (0.0-1.0) Urine Leukocyte Esterase 1+ (NEGATIVE) H Urine RBC 0-2 /HPF (0 - 2) Urine WBC 2-4 /HPF (0 - 2) Urine Squamous Epithelial Cells Occasional /LPF Urine Bacteria Many /HPF (NONE) H Sodium Level 128 MMOL/L (136-145) L Potassium Level 4.8 MMOL/L (3.5-5.1) Chloride Level 95 MMOL/L (98-107) L Carbon Dioxide Level 25 MMOL/L (21-32) Anion Gap 8 mmol/L (5-15) Blood Urea Nitrogen 12 mg/dL (7-18) Creatinine 0.9 MG/DL (0.55-1.30) Estimate Glomerular Filtration Rate mL/min (>60) Glucose Level 103 MG/DL (74-106) Calcium Level 9.5 MG/DL (8.5-10.1) Total Bilirubin 0.2 MG/DL (0.2-1.0) Aspartate Amino Transferase (AST) 25 U/L (15-37) Alanine Aminotransferase (ALT) 11 U/L (12-78) L Alkaline Phosphatase 144 U/L (46-116) H C-Reactive Protein, Quantitative < 0.4 mg/dL (0.00-0.90) Total Protein 7.8 G/DL (6.4-8.2) Albumin 3.7 G/DL (3.4-5.0) Globulin 4.1 g/dL Albumin/Globulin Ratio 0.9 (1.0-2.7) L Lipase 275 U/L (73-393) CT/MRI/US Diagnostic Results CT/MRI/US Diagnostic Results : Impression Comparison: 08/05/2019 Findings: Breathing motion significantly limits evaluation. There is a faintly visualized approximately 6 mm lung nodule just above the right hemidiaphragm. This was seen previously as well. There is basal atelectasis versus scarring that is mild. There is moderate calcification of the aorta and iliac arteries. The liver is low attenuation consistent with fatty infiltration. Gallbladder is grossly unremarkable. Diverticula noted in the sigmoid colon. Bladder is mildly distended. Uterus is atrophic. The appendix appears normal. The IVC is not well enhanced on this examination which was obtained fairly early after injection, i.e. more or less arterial phase exam. Having said that, the left iliac vein and left common femoral vein appear less enhanced than the right common femoral vein. The finding was similar on the prior occasion. Suggest correlation with the duplex Doppler venous ultrasound to exclude presence of a left lower extremity DVT. There is narrowing of intervertebral discs and accompanying endplate osteophyte formation. Hypertrophied facet joints also demonstrated. IMPRESSION: Possible left lower extremity DVT. Recommend ultrasound correlation. No evidence of appendicitis Fatty liver. Atherosclerotic vascular disease. Diverticulosis of the colon. No definite diverticulitis. Limited evaluation due to breathing motion. Pulmonary nodule at the right lung base. Consider 6 month follow-up CT chest per Fleischner Society criteria Other incidental findings as above Reevaluation Time: 21:00 Last Vital Signs Date Time Temp Pulse Resp B/P (MAP) Pulse Ox O2 Delivery O2 Flow Rate FiO2 08/19/19 15:06 97.9 73 20 117/69 (85) 96 Room Air Status: unchanged Reevaluation Impression CT of the abdomen shows diverticulosis without diverticulitis, now normal appendix compared to her prior admission, a lung nodule which is known to the patient's family and a fatty liver. There is significant stool burden in the colon. There is also concern over a possible left femoral DVT. An ultrasound was performed showing good flow and no evidence of DVT. Patient was given an enema and MiraLAX in the emergency department but did not have a significant bowel movement. She did have a very small bowel movement will require bowel cleanout. She will be admitted under observation status for bowel cleanout given her advanced age. She is now able to urinate on her own. She had 400 cc of urine on her initial straight cath. No evidence of acute urinary tract infection. Disposition: PLACE IN OBSERVATION Condition: Serious Wei Nesbitt MD Aug 19, 2019 15:23
[2019-08-19] MEDS ORDERED: Omnipaque-300 100ml vial INJ PRN (15:30)
[2019-08-19 15:41] LABS: BASOPHILS % (AUTO) 0.9 % (0.0-2.0); EOSINOPHILS % (AUTO) 2.5 % (0.0-3.0); HEMATOCRIT 35.1 % (37.0-47.0); HEMOGLOBIN 11.8 G/DL (12.0-16.0); LYMPHOCYTES % (AUTO) 19.2 % (20.0-45.0); MEAN CORPUSCULAR VOLUME 87 FL (80-99); MONOCYTES % (AUTO) 7.4 % (1.0-10.0); PLATELET COUNT 295 K/UL (150-450); RED BLOOD COUNT 4.02 M/UL (4.20-5.40); WHITE BLOOD COUNT 8.6 K/UL (4.8-10.8)
[2019-08-19 15:48] LABS: APPEARANCE,URINE CLEAR; BILIRUBIN, URINE NEGATIVE (NEGATIVE); COLOR,URINE PALE YELLOW; GLUCOSE, URINE (UA) NEGATIVE (NEGATIVE); KETONES,URINE NEGATIVE (NEGATIVE); LEUKOCYTE ESTERASE ,URINE 1+ (NEGATIVE); NITRITE,URINE NEGATIVE (NEGATIVE); PH,URINE 6.5 (4.5-8.0); PROTEIN,URINE NEGATIVE (NEGATIVE); UROBILINOGEN,URINE NORMAL MG/DL (0.0-1.0)
[2019-08-19 15:52] LABS: ANION GAP 8 mmol/L (5-15); BLOOD UREA NITROGEN 12 mg/dL (7-18); CALCIUM 9.5 MG/DL (8.5-10.1); CARBON DIOXIDE 25 MMOL/L (21-32); CHLORIDE 95 MMOL/L (98-107); CREATININE 0.9 MG/DL (0.55-1.30); POTASSIUM 4.8 MMOL/L (3.5-5.1); SODIUM 128 MMOL/L (136-145)
[2019-08-19 15:57] LABS: ALANINE AMINOTRANSFERASE 11 U/L (12-78); ALBUMIN 3.7 G/DL (3.4-5.0); ALBUMIN/GLOBULIN RATIO 0.9 (1.0-2.7); ALKALINE PHOSPHATASE 144 U/L (46-116); ASPARTATE AMINO TRANSFERASE 25 U/L (15-37); BILIRUBIN,TOTAL 0.2 MG/DL (0.2-1.0)
--- NOTE | 2019-08-19 16:48 | Diagnostic Imaging Report ---
Indication: Abdominal pain Technique: Continuous helical transaxial imaging of the abdomen and pelvis was obtained from the lung bases to the pubic symphysis during intravenous contrast administration. Coronal 2-D reformats were also obtained. Study obtained in a Siemens sensation [address] Automatic Exposure Control was utilized. Total Dose length Product (DLP): [address] Dose Index Volume (CTDIvol): 30.4 mGy Comparison: 08/05/2019 Findings: Breathing motion significantly limits evaluation. There is a faintly visualized approximately 6 mm lung nodule just above the right hemidiaphragm. This was seen previously as well. There is basal atelectasis versus scarring that is mild. There is moderate calcification of the aorta and iliac arteries. The liver is low attenuation consistent with fatty infiltration. Gallbladder is grossly unremarkable. Diverticula noted in the sigmoid colon. Bladder is mildly distended. Uterus is atrophic. The appendix appears normal. The IVC is not well enhanced on this examination which was obtained fairly early after injection, i.e. more or less arterial phase exam. Having said that, the left iliac vein and left common femoral vein appear less enhanced than the right common femoral vein. The finding was similar on the prior occasion. Suggest correlation with the duplex Doppler venous ultrasound to exclude presence of a left lower extremity DVT. There is narrowing of intervertebral discs and accompanying endplate osteophyte formation. Hypertrophied facet joints also demonstrated. IMPRESSION: Possible left lower extremity DVT. Recommend ultrasound correlation. No evidence of appendicitis Fatty liver. Atherosclerotic vascular disease. Diverticulosis of the colon. No definite diverticulitis. Limited evaluation due to breathing motion. Pulmonary nodule at the right lung base. Consider 6 month follow-up CT chest per Fleischner Society criteria Other incidental findings as above The CT scanner at [facility] is accredited by the [employer] and the scans are performed using dose optimization techniques as appropriate to a performed exam including Automatic Exposure control.
[2019-08-19] MEDS ORDERED: Fleet's Enema 133ml RECTAL ONE (17:15)
[2019-08-19] MEDS ORDERED: Ketorolac 30mg Inj IV ONE (17:30)
[2019-08-19 17:37] VITALS: BP 135/70
--- NOTE | 2019-08-19 17:37 | NUR ---
ED Nurse Note: materials engineering technician at bedside
--- NOTE | 2019-08-19 18:00 | NUR ---
ED Nurse Note: ultrasound has finisihed
--- NOTE | 2019-08-19 18:15 | NUR ---
ED Nurse Note: Patient has made 1 bowel movement post enema however states that she has only had a "small one"
[2019-08-19] MEDS ORDERED: HYDROmorphone 1mg/ml Carpuject IVP ONE (18:45)
[2019-08-19] MEDS ORDERED: Polyethylene Glycol 238gm bottle ORAL ONE (19:00)
--- NOTE | 2019-08-19 19:30 | NUR ---
ED Nurse Note: Patient does not need EKG per ER doctor
--- NOTE | 2019-08-19 20:25 | NUR ---
TRANSFER TO FLOOR: Patient transferred to [facility] as ordered, per . Report given to ADARSH Villafana
[2019-08-19 20:40] VITALS: BP 163/77
--- NOTE | 2019-08-19 20:40 | NUR ---
NURSE NOTES: Report taken over the phone from ADARSH Mojica. Patient brought to floor via hospital bed, A&Ox4. Granddaughter at bedside, phone #[phone], call with updates. No signs of distress on room air. Having some complaints of pain 3/10, primarily with palpation and movement. Slight abdominal distention, continue to monitor. Skin intact. IV site c/d/i and patent, no fluids running currently. Belongings list reviewed at bedside with granddaughter. Will contact MD for patient orders. Bed in lowest position, call light within reach.
[2019-08-19] MEDS ORDERED: D5 1/2NS 1,000 ML IV SCH (22:00)
[2019-08-19] MEDS ORDERED: Albuterol 90mcg Inhaler 8gm INH PRN (22:15)
[2019-08-20] VITALS: BP 137/78
--- NOTE | 2019-08-20 | NUR ---
NURSE NOTES: Collado catheter inserted 16Fr per MD order for urinary retention.
[2019-08-20 04:00] VITALS: BP 158/65
[2019-08-20] MEDS: Acetaminophen 500mg (ES) tab ORAL PRN ×2 (04:25→17:03)
--- NOTE | 2019-08-20 05:16 | NUR ---
NURSE NOTES: Patient complained of increased pain in her abdominal area. Stated that it was not abdominal pain but pain in the bladder due to cervantes. RN explained to patient that this can happen with cervantes placement. Patient continued to state that she wanted the cervantes out because she couldnt sleep and that she felt continuous pain. RN explained the reasoning for the cervantes and why it should stay in. Stated it is her body and that she will pull cervantes out herself if not removed. Removed cervantes and will notify
--- NOTE | 2019-08-20 07:32 | NUR ---
HAND-OFF: Report given to ADARSH Rangel. Patient is awake and VS stable.
--- NOTE | 2019-08-20 07:40 | NUR ---
NURSE NOTES: Received report from ADARSH Villafana. Patient sleeping. On room air, no signs of distress or labored breathing. IV intact, patent, and infusing IV fluids. Bed in lowest position, will continue with plan of care.
[2019-08-20 07:53] LABS: BASOPHILS % (AUTO) 0.7 % (0.0-2.0); EOSINOPHILS % (AUTO) 3.5 % (0.0-3.0); HEMOGLOBIN 11.5 G/DL (12.0-16.0); LYMPHOCYTES % (AUTO) 23.2 % (20.0-45.0); MEAN CORPUSCULAR VOLUME 87 FL (80-99); MONOCYTES % (AUTO) 9.9 % (1.0-10.0); NEUTROPHILS % (AUTO) 62.7 % (45.0-75.0); PLATELET COUNT 266 K/UL (150-450); WHITE BLOOD COUNT 6.7 K/UL (4.8-10.8)
[2019-08-20 08:00] VITALS: BP 152/69
[2019-08-20 08:17] LABS: ALANINE AMINOTRANSFERASE 10 U/L (12-78); ALBUMIN 3.4 G/DL (3.4-5.0); ALBUMIN/GLOBULIN RATIO 0.9 (1.0-2.7); ALKALINE PHOSPHATASE 131 U/L (46-116); ANION GAP 8 mmol/L (5-15); ASPARTATE AMINO TRANSFERASE 25 U/L (15-37); BILIRUBIN,TOTAL 0.4 MG/DL (0.2-1.0); BLOOD UREA NITROGEN 11 mg/dL (7-18); CALCIUM 9.5 MG/DL (8.5-10.1); CARBON DIOXIDE 24 MMOL/L (21-32); CHLORIDE 97 MMOL/L (98-107); CREATININE 0.9 MG/DL (0.55-1.30); POTASSIUM 4.5 MMOL/L (3.5-5.1); SODIUM 129 MMOL/L (136-145)
[2019-08-20] MEDS ORDERED: Docusate 100mg cap ORAL SCH (09:00)
[2019-08-20 09:04] LABS: PHOSPHORUS 4.3 MG/DL (2.5-4.9)
[2019-08-20] MEDS: Lisinopril 20mg tab ORAL SCH (09:10)
--- NOTE | 2019-08-20 11:05 | NUR ---
NURSE NOTES: Patient off unit for CT scan. Addendum: 08/20/19 at 1119 by Nicole Gilliam RN WRONG PATIENT
[2019-08-20 12:00] VITALS: BP 157/71
[2019-08-20] MEDS ORDERED: Omnipaue 350mg/ml 100ml vial INJ PRN ×2 (12:00)
[2019-08-20] MEDS ORDERED: Albuterol/Ipratropium 3ml neb HHN PRN (12:00)
--- NOTE | 2019-08-20 12:15 | Consultation ---
History of Present Illness General Chief Complaint: Abdominal Pain Present Illness Allergies: Coded Allergies: PENICILLINS (Unverified Allergy, Unknown, 08/05/19) Medication History Scheduled Albuterol Sulfate* (Albuterol Sulfate Mdi*), 2 PUFF INH Q3H Docusate Sodium* (Colace*), 100 MG ORAL DAILY, (Reported) Levofloxacin* (Levaquin*), 750 MG ORAL DAILY Scheduled PRN Codeine/Promethazine Hcl* (Promethazine-Codeine Syrup*), 5 ML ORAL Q6H PRN for For Cough Patient History Healthcare decision maker Tamara Castano Resuscitation status Full Code Advanced Directive on File Physical Exam Last 24 Hour Vital Signs Date Time Temp Pulse Resp B/P (MAP) Pulse Ox O2 Delivery O2 Flow Rate FiO2 08/20/19 09:10 152/69 08/20/19 08:00 98.6 63 20 152/69 (96) 98 08/20/19 04:00 98.4 68 18 158/65 (96) 98 08/20/19 00:00 98.1 69 18 137/78 (97) 98 08/19/19 21:02 Room Air 08/19/19 20:40 97.7 61 18 163/77 (105) 99 08/19/19 20:25 97.9 66 20 150/68 96 Room Air 08/19/19 18:01 97.9 08/19/19 17:37 97.9 66 20 135/70 96 Room Air 08/19/19 15:10 73 20 Room Air 08/19/19 15:10 97.9 66 20 117/69 96 Room Air 08/19/19 15:06 97.9 73 20 117/69 (85) 96 Room Air Intake and Output 08/19/19 08/20/19 19:00 07:00 Intake Total 1000 ml Output Total 750 ml Balance 250 ml Intake IV Total 1000 ml Output Urine Total 750 ml # Voids 3 # Bowel Movements 2 Laboratory Tests Test 08/19/19 15:30 08/20/19 07:35 White Blood Count 8.6 K/UL (4.8-10.8) 6.7 K/UL (4.8-10.8) Red Blood Count 4.02 M/UL (4.20-5.40) L 4.00 M/UL (4.20-5.40) L Hemoglobin 11.8 G/DL (12.0-16.0) L 11.5 G/DL (12.0-16.0) L Hematocrit 35.1 % (37.0-47.0) L 35.0 % (37.0-47.0) L Mean Corpuscular Volume 87 FL (80-99) 87 FL (80-99) Mean Corpuscular Hemoglobin 29.3 PG (27.0-31.0) 28.8 PG (27.0-31.0) Mean Corpuscular Hemoglobin Concent 33.5 G/DL (32.0-36.0) 33.0 G/DL (32.0-36.0) Red Cell Distribution Width 14.0 % (11.6-14.8) 15.0 % (11.6-14.8) H Platelet Count 295 K/UL (150-450) 266 K/UL (150-450) Mean Platelet Volume 6.5 FL (6.5-10.1) 6.2 FL (6.5-10.1) L Neutrophils (%) (Auto) 70.0 % (45.0-75.0) 62.7 % (45.0-75.0) Lymphocytes (%) (Auto) 19.2 % (20.0-45.0) L 23.2 % (20.0-45.0) Monocytes (%) (Auto) 7.4 % (1.0-10.0) 9.9 % (1.0-10.0) Eosinophils (%) (Auto) 2.5 % (0.0-3.0) 3.5 % (0.0-3.0) H Basophils (%) (Auto) 0.9 % (0.0-2.0) 0.7 % (0.0-2.0) Urine Color Pale yellow Urine Appearance Clear Urine pH 6.5 (4.5-8.0) Urine Specific [place] 1.010 (1.005-1.035) Urine Protein Negative (NEGATIVE) Urine Glucose (UA) Negative (NEGATIVE) Urine Ketones Negative (NEGATIVE) Urine Blood Negative (NEGATIVE) Urine Nitrite Negative (NEGATIVE) Urine Bilirubin Negative (NEGATIVE) Urine Urobilinogen Normal MG/DL (0.0-1.0) Urine Leukocyte Esterase 1+ (NEGATIVE) H Urine RBC 0-2 /HPF (0 - 2) Urine WBC 2-4 /HPF (0 - 2) Urine Squamous Epithelial Cells Occasional /LPF Urine Bacteria Many /HPF (NONE) H Sodium Level 128 MMOL/L (136-145) L 129 MMOL/L (136-145) L Potassium Level 4.8 MMOL/L (3.5-5.1) 4.5 MMOL/L (3.5-5.1) Chloride Level 95 MMOL/L (98-107) L 97 MMOL/L (98-107) L Carbon Dioxide Level 25 MMOL/L (21-32) 24 MMOL/L (21-32) Anion Gap 8 mmol/L (5-15) 8 mmol/L (5-15) Blood Urea Nitrogen 12 mg/dL (7-18) 11 mg/dL (7-18) Creatinine 0.9 MG/DL (0.55-1.30) 0.9 MG/DL (0.55-1.30) Estimat Glomerular Filtration Rate mL/min (>60) mL/min (>60) Glucose Level 103 MG/DL (74-106) 95 MG/DL (74-106) Calcium Level 9.5 MG/DL (8.5-10.1) 9.5 MG/DL (8.5-10.1) Total Bilirubin 0.2 MG/DL (0.2-1.0) 0.4 MG/DL (0.2-1.0) Aspartate Amino Transf (AST/SGOT) 25 U/L (15-37) 25 U/L (15-37) Alanine Aminotransferase (ALT/SGPT) 11 U/L (12-78) L 10 U/L (12-78) L Alkaline Phosphatase 144 U/L (46-116) H 131 U/L (46-116) H C-Reactive Protein, Quantitative < 0.4 mg/dL (0.00-0.90) Total Protein 7.8 G/DL (6.4-8.2) 7.3 G/DL (6.4-8.2) Albumin 3.7 G/DL (3.4-5.0) 3.4 G/DL (3.4-5.0) Globulin 4.1 g/dL 3.9 g/dL Albumin/Globulin Ratio 0.9 (1.0-2.7) L 0.9 (1.0-2.7) L Lipase 275 U/L (73-393) Osmolality 267 mOsm/kg (297-317) L Uric Acid 2.8 MG/DL (2.6-7.2) Phosphorus Level 4.3 MG/DL (2.5-4.9) Magnesium Level 2.1 MG/DL (1.8-2.4) Thyroid Stimulating Hormone (TSH) 0.215 uiU/mL (0.358-3.740) Microbiology Date/Time Source Procedure Growth Status 08/19/19 20:30 Rectum Received Height (Feet): 5 Height (Inches): 0.00 Weight (Pounds): 111 Medications Current Medications Medications (Trade) Dose Ordered Sig/Celeste Route PRN Reason Start Time Stop Time Status Last Admin Dose Admin Acetaminophen (Tylenol) 500 mg Q4H PRN ORAL Mild Pain/Temp > 100.5 08/19/19 22:00 09/18/19 21:59 08/20/19 04:25 Albuterol Sulfate (Proventil MDI) 2 puff Q3HR PRN INH Shortness of Breath 08/19/19 22:15 09/18/19 22:14 Albuterol/ Ipratropium (Albuterol/ Ipratropium) 3 ml Q6HRT PRN HHN Shortness of Breath 08/20/19 12:00 08/25/19 11:59 UNV Barium Sulfate (Readi-Cat 2) 450 ml NOW PRN ORAL Radiology Procedure 08/20/19 12:00 08/22/19 11:49 UNV Clonidine HCl (Catapres Tab) 0.1 mg Q6HR PRN ORAL For High Blood Pressure 08/19/19 22:00 09/18/19 21:59 Dextrose/Sodium Chloride 1,000 ml @ 50 mls/hr Q20H IV 08/19/19 22:00 09/18/19 21:59 08/19/19 22:20 Docusate Sodium (Colace) 100 mg DAILY ORAL 08/20/19 09:00 09/19/19 08:59 08/20/19 09:09 Heparin Sodium (Porcine) (Heparin 5000 units/ml) 5,000 units EVERY 12 HOURS SUBQ 08/20/19 21:00 09/19/19 20:59 UNV Iohexol (OMNIPAQUE-300 100ml) 100 ml NOW PRN INJ Radiology Procedure 08/19/19 15:30 08/21/19 15:23 Iohexol (Omnipaque) 100 mg NOW PRN INJ Radiology Procedure 08/20/19 12:00 08/22/19 11:49 UNV Iohexol (Omnipaque) 100 mg NOW PRN INJ Radiology Procedure 08/20/19 12:00 08/22/19 11:49 UNV Lisinopril (Prinivil) 20 mg DAILY ORAL 08/20/19 09:00 09/19/19 08:59 08/20/19 09:10 Ondansetron HCl (Zofran) 4 mg Q6H PRN IVP Nausea & Vomiting 08/19/19 22:00 09/18/19 21:59 08/20/19 04:25 Assessment/Plan Assessment/Plan: Hematology Consultation RENataliia MD: Becca Estrada RFC: DVT eval left leg, pulm nodule DOS: 08/20/19 ID 89-year-old female with a history of hypertension and recent admission to this hospital 2 weeks ago complaining of abdominal pain and diagnosed with hyponatremia presents for evaluation of constipation and difficulty passing urine. Since her discharge from the hospital she states she has had very few bowel movements. Denies diarrhea. According to her caregiver who is present at bedside she was given medications for constipation which she has been taking. States her abdominal distention has become significant over the past few days. She is not been able to pass urine for the past 2 days. She feels a fullness and pressure in the lower pelvis. She reports nausea but no vomiting. Denies fevers, chills, cough, URI symptoms or other changes in her health otherwise. Noted on imaging to have a dvt, duplex still pending, heme consulted for eval, placed on lovenox. PMH: Hypertension PSH: See chart Allergies: Penicillins Social Hx: Denies alcohol or drug abuse Allergies: Coded Allergies: PENICILLINS (Unverified Allergy, Unknown, 08/05/19) Patient History Last Menstrual Period: na Nursing Documentation-PMH Past Medical History: No History, Except For Hx Cardiac Problems: Yes Hx Hypertension: Yes Hx Cancer: No Hx Gastrointestinal Problems: Yes - appendicitis Hx Neurological Problems: No Review of Systems All Other Systems: negative except mentioned in HPI Physical Exam: Vitals: reviewed General Appearance: NAD HEENT: normocephalic, atraumatic Neck: non-tender, normal alignment Respiratory/Chest: normal breath sounds bilaterally Cardiovascular/Chest: normal peripheral pulses, normal rate Abdomen: normal bowel sounds, soft, nontender Extremities: normal range of motion + left lower ext 1+ edema Labs: reviewed Imaging: noted Assessment and Recs: # Imaging artifact -- initially showed Left lower extremity DVT -- dw radiologist and duplex is negative --> hold off on anticoagulation --> NO DVT IS NOTED AT THIS TIME --> Dw radiologist 08/20 # Pulmonary nodule --> on ct imaging was noted --> consider ct scan in 6months # Anemia of chronic disease, with hgb approx 8 --> hgb trend 11.5--> 11.4 --> no bleeding noted at this time --> stable for anticoag # Hyponatremia --> as per renal # Abdominal pain --> Diverticulosis --> as per gi eval/surg # Fatty liver # Dvt ppx with lovenox/coumadin Greatly appreciate consultation. Tomy Saba MD Aug 20, 2019 12:15
--- NOTE | 2019-08-20 12:30 | Diagnostic Imaging Report ---
APPROVED REPORT CPT Code: 86034 Present Symptoms Lower Extremity Pain: Left LEFT LEG: Venous imaging reveals a patent deep venous system. There is no evidence of thrombus within the femoral, popliteal or tibial segments. The greater saphenous vein is also within normal limits. Doppler indicates normal spontaneous flow within these segments.
--- NOTE | 2019-08-20 13:20 | NUR ---
*-* INSURANCE *-* ALL AVAILABLE CLINICALS HAVE BEEN FAXED TO: [facility]#[id number] NO CHICKEN HANGER ASSIGNED YET PH#[phone] FAX#[phone] REVIEWS/CLINICALS
--- NOTE | 2019-08-20 14:19 | NUR ---
RADIOLOGY DEPT., CHEST X-RAY DONE.-P.DYE
[2019-08-20] MEDS ORDERED: Enoxaparin Sodium 300mg/3ml vial SUBQ SCH (15:00)
[2019-08-20 16:00] VITALS: BP 155/70
--- NOTE | 2019-08-20 16:39 | Pulmonology Progress Note ---
Assessment/Plan Assessment/Plan Pulmonary Consultation: HPI: Patient is an 89 year old woman with a history of Hypertension. Recent admission to this hospital 2 weeks ago complaining of abdominal pain and diagnosed with hyponatremia, admitted with constipation and difficulty passing urine for 2 days, abdominal distention has become significant over the past few days. Some nausea, no vomiting. Denies fevers, chills, cough, URI symptoms or other changes in her health otherwise. PMH: Hypertension, Cardiac disease, previous Appendicitis PSH: See chart Allergies: Penicillins Social Hx: Denies alcohol or drug abuse Allergies: PENICILLINS All Other Systems: negative except mentioned in HPI Physical Exam Vital Signs Noted General: Awake and alert, no acute distress HEENT: NC/AT. EOMI. Cardiovascular: RRR. S1 and S2 normal. No murmur appreciated Resp: Normal work of breathing. No cough, wheezing or crackles appreciated Abdomen: Abdomen is soft, slightly distended but nontender. No rebound. No masses appreciated Skin: Intact. No abrasions, laceration or rash over the exposed skin MSK: Normal tone and bulk. Moving all extremities. No obvious deformity. Neuro: Awake and alert. Mentating appropriately. 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 Monitor labs Laboratory Tests Noted Test 08/19/19 15:30 White Blood Count 8.6 K/UL (4.8-10.8) Red Blood Count 4.02 M/UL (4.20-5.40) L Hemoglobin 11.8 G/DL (12.0-16.0) L Hematocrit 35.1 % (37.0-47.0) L Mean Corpuscular Volume 87 FL (80-99) Mean Corpuscular Hemoglobin 29.3 PG (27.0-31.0) Mean Corpuscular Hemoglobin Concent 33.5 G/DL (32.0-36.0) Red Cell Distribution Width 14.0 % (11.6-14.8) Platelet Count 295 K/UL (150-450) Mean Platelet Volume 6.5 FL (6.5-10.1) Neutrophils (%) (Auto) 70.0 % (45.0-75.0) Lymphocytes (%) (Auto) 19.2 % (20.0-45.0) L Monocytes (%) (Auto) 7.4 % (1.0-10.0) Eosinophils (%) (Auto) 2.5 % (0.0-3.0) Basophils (%) (Auto) 0.9 % (0.0-2.0) Urine Color Pale yellow Urine Appearance Clear Urine pH 6.5 (4.5-8.0) Urine Specific [place] 1.010 (1.005-1.035) Urine Protein Negative (NEGATIVE) Urine Glucose (UA) Negative (NEGATIVE) Urine Ketones Negative (NEGATIVE) Urine Blood Negative (NEGATIVE) Urine Nitrite Negative (NEGATIVE) Urine Bilirubin Negative (NEGATIVE) Urine Urobilinogen Normal MG/DL (0.0-1.0) Urine Leukocyte Esterase 1+ (NEGATIVE) H Urine RBC 0-2 /HPF (0 - 2) Urine WBC 2-4 /HPF (0 - 2) Urine Squamous Epithelial Cells Occasional /LPF Urine Bacteria Many /HPF (NONE) H Sodium Level 128 MMOL/L (136-145) L Potassium Level 4.8 MMOL/L (3.5-5.1) Chloride Level 95 MMOL/L (98-107) L Carbon Dioxide Level 25 MMOL/L (21-32) Anion Gap 8 mmol/L (5-15) Blood Urea Nitrogen 12 mg/dL (7-18) Creatinine 0.9 MG/DL (0.55-1.30) Estimate Glomerular Filtration Rate mL/min (>60) Glucose Level 103 MG/DL (74-106) Calcium Level 9.5 MG/DL (8.5-10.1) Total Bilirubin 0.2 MG/DL (0.2-1.0) Aspartate Amino Transferase (AST) 25 U/L (15-37) Alanine Aminotransferase (ALT) 11 U/L (12-78) L Alkaline Phosphatase 144 U/L (46-116) H C-Reactive Protein, Quantitative < 0.4 mg/dL (0.00-0.90) Total Protein 7.8 G/DL (6.4-8.2) Albumin 3.7 G/DL (3.4-5.0) Globulin 4.1 g/dL Albumin/Globulin Ratio 0.9 (1.0-2.7) L Lipase 275 U/L (73-393) CT Abdomen Pelvis : Findings: Breathing motion significantly limits evaluation. There is a faintly visualized approximately 6 mm lung nodule just above the right hemidiaphragm. This was seen previously as well. There is basal atelectasis versus scarring that is mild. There is moderate calcification of the aorta and iliac arteries. The liver is low attenuation consistent with fatty infiltration. Gallbladder is grossly unremarkable. Diverticula noted in the sigmoid colon. Bladder is mildly distended. Uterus is atrophic. The appendix appears normal. The IVC is not well enhanced on this examination which was obtained fairly early after injection, i.e. more or less arterial phase exam. Having said that, the left iliac vein and left common femoral vein appear less enhanced than the right common femoral vein. The finding was similar on the prior occasion. Suggest correlation with the duplex Doppler venous ultrasound to exclude presence of a left lower extremity DVT. There is narrowing of intervertebral discs and accompanying endplate osteophyte formation. Hypertrophied facet joints also demonstrated. IMPRESSION: Possible left lower extremity DVT. Recommend ultrasound correlation. No evidence of appendicitis Fatty liver. Atherosclerotic vascular disease. Diverticulosis of the colon. No definite diverticulitis. Limited evaluation due to breathing motion. Pulmonary nodule at the right lung base. Consider 6 month follow-up CT chest per Fleischner Society criteria Subjective ROS Limited/Unobtainable: No Allergies: Coded Allergies: PENICILLINS (Unverified Allergy, Unknown, 08/05/19) Objective Last 24 Hour Vital Signs Date Time Temp Pulse Resp B/P (MAP) Pulse Ox O2 Delivery O2 Flow Rate FiO2 08/20/19 12:00 98.6 59 18 157/71 (99) 98 08/20/19 09:10 152/69 08/20/19 08:00 98.6 63 20 152/69 (96) 98 08/20/19 04:00 98.4 68 18 158/65 (96) 98 08/20/19 00:00 98.1 69 18 137/78 (97) 98 08/19/19 21:02 Room Air 08/19/19 20:40 97.7 61 18 163/77 (105) 99 08/19/19 20:25 97.9 66 20 150/68 96 Room Air 08/19/19 18:01 97.9 08/19/19 17:37 97.9 66 20 135/70 96 Room Air Intake and Output 08/19/19 08/20/19 19:00 07:00 Intake Total 1000 ml Output Total 750 ml Balance 250 ml Intake IV Total 1000 ml Output Urine Total 750 ml # Voids 3 # Bowel Movements 2 Microbiology Date/Time Source Procedure Growth Status 08/19/19 20:30 Rectum Received Laboratory Tests 08/20/19 07:35: White Blood Count 6.7, Red Blood Count 4.00L, Hemoglobin 11.5L, Hematocrit 35.0L , Mean Corpuscular Volume 87, Mean Corpuscular Hemoglobin 28.8, Mean Corpuscular Hemoglobin Concent 33.0, Red Cell Distribution Width 15.0H, Platelet Count 266, Mean Platelet Volume 6.2L, Neutrophils (%) (Auto) 62.7, Lymphocytes (%) (Auto) 23.2, Monocytes (%) (Auto) 9.9, Eosinophils (%) (Auto) 3.5H, Basophils (%) (Auto) 0.7, Sodium Level 129L, Potassium Level 4.5, Chloride Level 97L, Carbon Dioxide Level 24, Anion Gap 8, Blood Urea Nitrogen 11 , Creatinine 0.9, Estimat Glomerular Filtration Rate , Glucose Level 95, Osmolality 267L, Uric Acid 2.8, Calcium Level 9.5, Phosphorus Level 4.3, Magnesium Level 2.1, Total Bilirubin 0.4, Aspartate Amino Transf (AST/SGOT) 25, Alanine Aminotransferase (ALT/SGPT) 10L, Alkaline Phosphatase 131H, Total Protein 7.3, Albumin 3.4, Globulin 3.9, Albumin/Globulin Ratio 0.9L, Thyroid Stimulating Hormone (TSH) 0.215L 08/20/19 13:55: Prothrombin Time 10.2, Prothromb Time International Ratio 1.0 Current Medications Medications (Trade) Dose Ordered Sig/Celeste Route PRN Reason Start Time Stop Time Status Last Admin Dose Admin Acetaminophen (Tylenol) 500 mg Q4H PRN ORAL Mild Pain/Temp > 100.5 08/19/19 22:00 09/18/19 21:59 08/20/19 04:25 Albuterol/ Ipratropium (Albuterol/ Ipratropium) 3 ml Q6HRT PRN HHN Shortness of Breath 08/20/19 12:00 08/25/19 11:59 Clonidine HCl (Catapres Tab) 0.1 mg Q6HR PRN ORAL For High Blood Pressure 08/19/19 22:00 09/18/19 21:59 Docusate Sodium (Colace) 100 mg TID ORAL 08/20/19 18:00 09/19/19 08:59 Iohexol (OMNIPAQUE-300 100ml) 100 ml NOW PRN INJ Radiology Procedure 08/19/19 15:30 08/21/19 15:23 Lisinopril (Prinivil) 20 mg DAILY ORAL 08/20/19 09:00 09/19/19 08:59 08/20/19 09:10 Ondansetron HCl (Zofran) 4 mg Q6H PRN IVP Nausea & Vomiting 08/19/19 22:00 09/18/19 21:59 08/20/19 04:25 Sodium Chloride 1,000 ml @ 50 mls/hr Q20H IV 08/20/19 15:30 09/19/19 15:29 08/20/19 15:58 Carlito Perla MD Aug 20, 2019 16:39
--- NOTE | 2019-08-20 17:30 | History and Physical Report ---
DATE OF ADMISSION: 08/19/2019 HISTORY OF PRESENT ILLNESS: The patient is admitted for severe constipation. The patient was initially couple of weeks ago admitted to rule out appendicitis and she was ruled out. The patient also has hyponatremia. She is also having abdominal pain and constipation for one week and also difficulty passing urine for the past couple of days. CT according to the ER doctor showed that the appendix is normal and significant constipation was also reported. She was given laxatives. Able to pass urine as well. Admitted for those reasons. The patient complains of bladder spasm as well after the [place] was placed and we had to remove it. PAST MEDICAL HISTORY: Significant for constipation, history of diverticulosis, fatty liver, hemorrhoids. ALLERGIES: To penicillin. PAST SURGICAL HISTORY: Bladder tumor removal, exploratory laparotomy, hemorrhoid surgery. MEDICATIONS: Takes pain medications and stool softener. FAMILY HISTORY: Noncontributory. REVIEW OF SYSTEMS: HEENT: Denies headaches. PULMONARY: Denies shortness of breath. Denies cough. CARDIOVASCULAR: Denies chest pain or orthopnea. GASTROINTESTINAL: Reports abdominal pain. Denies vomiting. Does have constipation for a week. EXTREMITIES: Denies pain in lower extremities. CENTRAL NERVOUS SYSTEM: Denies change in vision or speech pattern. PHYSICAL EXAMINATION: VITAL SIGNS: Temperature is 97.7, pulse is 61, blood pressure is 163/77. HEENT: PERRLA. NECK: Supple. No lymphadenopathy. CHEST: Clear to auscultation. CARDIOVASCULAR: Regular rate and rhythm. No murmurs or extra sounds. GASTROINTESTINAL: Abdomen is soft. No organomegaly. EXTREMITIES: No edema. NEUROLOGIC: Reflexes equal on both sides. Moves all four extremities. Sensory intact to light touch. LABORATORY DATA: WBC of 8.6, hemoglobin 11.8, platelets of 295. Sodium 128, potassium 4.8, BUN of 12, creatinine 0.9, glucose of 103. ASSESSMENT AND PLAN: Abdominal pain, most likely due to constipation, hyponatremia. I have asked Dr. Blackman, Dr. Mendoza, and Dr. Huffman to see the patient. The patient is also on the imaging scan shows possible DVTs. So, I have also asked Dr. Perla and Dr. Tomy Saba to see the patient for possible DVT. Ali Adithya Lewis DR: ALEXANDER JOB#: [id number] CC:
--- NOTE | 2019-08-20 17:48 | Diagnostic Imaging Report ---
Indication: Shortness of breath Technique: One view of the chest Comparison: none Findings: No acute infiltrates, effusions, or congestion. Tortuous calcified aorta. Normal heart size. Upper mediastinum unremarkable. There are median sternotomy sutures Impression: No acute process.
--- NOTE | 2019-08-20 18:04 | Diagnostic Imaging Report ---
Clinical Indication: Asthma, cough, shortness of breath Technique: Spiral acquisitions obtained through the chest. No IV contrast utilized, reason estimated. Multiplanar reconstructions generated. Total dose length product mGycm. CTDIvol(s) mGy. Dose reduction achieved using automated exposure control Comparison: No comparison chest CTs. Reference made to abdomen pelvis CT 08/19/2019 Findings: There is a 6 mm subpleural nodule at the right lung base. There is also reported on recent abdomen pelvis CT. At the left lung base, there is an irregular semicircular opacity which measures 7 mm in diameter. Some atelectasis or scarring is seen at the right lung base. There is some patchy atelectasis or scarring also in the superior segment of the right lower lobe. Scarring is seen at both lung apices. No focal airspace consolidation. No effusions. The heart is normal in size. No pericardial effusion. There are coronary artery calcifications. No mediastinal or hilar mass or adenopathy. The included portion of the thyroid is unremarkable. No axillary or chest wall mass or adenopathy. There are median sternotomy sutures. The included upper abdominal anatomy is unremarkable. The bones demonstrate degenerative spondylosis changes. There is mild scoliotic deformity The included upper abdominal anatomy is unremarkable. Impression: 6 mm right basilar subpleural nodule. 7 mm left basilar semicircular opacity. Recommend short interval follow-up CT scan in 6-12 months for follow-up of both of these. No acute process otherwise Basilar atelectatic changes on the right. Bilateral apical scarring Evidence of prior median sternotomy Mild scoliosis and degenerative spondylosis The CT scanner at [facility] is accredited by the [employer] and the scans are performed using protocols designed to limit radiation exposure to as low as reasonably achievable to attain images of sufficient resolution adequate for diagnostic evaluation.
[2019-08-20] MEDS ORDERED: D5 1/2NS 1000ml IV ONE (18:17)
[2019-08-20] MEDS: Docusate 100mg cap ORAL SCH (18:36)
--- NOTE | 2019-08-20 19:15 | NUR ---
HAND-OFF: Report given to ADRASH Villafana.
--- NOTE | 2019-08-20 19:31 | NUR ---
CASE MANAGEMENT: REVIEW 89Y/FEMALE PRESENTED TO ED CC: ABD PAIN 10/10 AND DIFFICULTY URINATING . NO BM X2DAYS HX DIVERTICULOSIS , EX LAP HEMORRHOID SURGERY SI: ABD PAIN . CONSTIPATION T 97.9 HR 73 RR 20 BP 117/69 SAT 96% ROOM AIR H/H 11.8/35.1 NA 128 ALT [address] ABD / PELVIS -- DIVERTICULOSIS OF THE COLON . NO DEFINITE DIVERTICULITIS IS: FLEET'S ENEMA X1 TORADOL IV X1 NS IVF BOLUS X1 DILAUDID IV X1 MIRALAX PO X1 NPO 1 SMALL BOWEL MOVEMENT POST ENEMA PATIENT ADMITTED TO MED/SURG UNIT 08/19/2019 DCP: PATIENT IS FROM HOME
[2019-08-20 20:00] VITALS: BP 161/74
--- NOTE | 2019-08-20 20:00 | NUR ---
NURSE NOTES: Report taken from ADARSH Rangel. Patient is asleep, arousable by name and light touch. A&Ox4, must speak loud to patient as she is hard of hearing. No signs of distress on room air. Some minor abdominal pain, 3/10. Skin is intact. IV site c/d/i and patent, running NS at 50mls/hr. Patient needs assistance ambulating to rest room, cane at bedside. Bed in lowest position, call light within.
[2019-08-20] MEDS ORDERED: Heparin 5000 units/ml inj SUBQ SCH (21:00)
--- NOTE | 2019-08-20 21:38 | Consultation ---
History of Present Illness General Date patient seen: Aug 20, 2019 Reason for Hospitalization: Abdominal Pain Present Illness HPI 89F known to me from prior admission recently who was though to have possible appy at that time based on boarderline CT results. clinically did not have appy and was improved and discharged. presented again with abd pain and pelvic pressure. CT without appy or acute surgical process. surgery called to evaluate for abdominal pain. no n/v/f/c. abdominal discomfort in pelvic region. CT noted. labs noted. constipated. decreased appetite Allergies: Coded Allergies: PENICILLINS (Unverified Allergy, Unknown, 08/05/19) Medication History Scheduled Albuterol Sulfate* (Albuterol Sulfate Mdi*), 2 PUFF INH Q3H Docusate Sodium* (Colace*), 100 MG ORAL DAILY, (Reported) Levofloxacin* (Levaquin*), 750 MG ORAL DAILY Scheduled PRN Codeine/Promethazine Hcl* (Promethazine-Codeine Syrup*), 5 ML ORAL Q6H PRN for For Cough Patient History Limited by: medical condition History Provided By: Medical Record, PMD Healthcare decision maker Tamara Castano Resuscitation status Full Code Advanced Directive on File Past Medical/Surgical History Past Medical/Surgical History: (1) Hypertension (2) Constipation (3) Fatty liver (4) Diverticulosis (5) Abdominal pain (6) Lung nodule Review of Systems Review of Symptoms General ROS: no weight loss or fever Psychological ROS: no depression or mood changes, no memory loss Ophthalmic ROS: no visual changes or eye irritation ENT ROS: no nasal congestion, hearing loss, dizziness Allergy and Immunology ROS: no allergic symptoms or urticaria Hematological and Lymphatic ROS: no swollen glands, unusual bleeding or bruising Endocrine ROS: no polyuria, polydipsia, weight changes, temperature intolerance Respiratory ROS: no cough, shortness of breath, or wheezing Cardiovascular ROS: no chest pain or dyspnea on exertion Gastrointestinal ROS: abdominal pain, no bright red blood in stool. Musculoskeletal ROS: no myalgias or arthralgias Neurological ROS: no TIA or stroke symptoms Dermatological ROS: no new or changing skin lesions, rashes or pruritis Physical Exam Physical Exam General appearance: alert, cooperative, no distress, appears stated age Head: Normocephalic, without obvious abnormality, atraumatic Eyes: conjunctivae/corneas clear. PERRL, EOM's intact. Fundi benign Throat: Lips, mucosa, and tongue normal. Teeth and gums normal Neck: supple, symmetrical, trachea midline, no adenopathy, thyroid: not enlarged, symmetric, no tenderness/mass/nodules, no carotid bruit and no JVD Lungs: clear to auscultation bilaterally Heart: regular rate and rhythm, S1, S2 normal, no murmur, click, rub or gallop Abdomen: soft, mild discomfort/-tender. Bowel sounds normal. No masses, no organomegaly Extremities: extremities normal, atraumatic, no cyanosis or edema Pulses: 2+ and symmetric Skin: Skin color, texture, turgor normal. No rashes or lesions Neurologic: Grossly normal Last 24 Hour Vital Signs Date Time Temp Pulse Resp B/P (MAP) Pulse Ox O2 Delivery O2 Flow Rate FiO2 08/20/19 16:00 98.3 54 20 155/70 (98) 98 08/20/19 12:00 98.6 59 18 157/71 (99) 98 08/20/19 09:10 152/69 08/20/19 09:00 Room Air 08/20/19 08:00 98.6 63 20 152/69 (96) 98 08/20/19 04:00 98.4 68 18 158/65 (96) 98 08/20/19 00:00 98.1 69 18 137/78 (97) 98 Intake and Output 08/19/19 08/20/19 19:00 07:00 Intake Total 1000 ml Output Total 750 ml Balance 250 ml IV Total 1000 ml Output Urine Total 750 ml # Voids 3 # Bowel Movements 2 Laboratory Tests Test 08/20/19 07:35 08/20/19 13:55 White Blood Count 6.7 K/UL (4.8-10.8) Red Blood Count 4.00 M/UL (4.20-5.40) L Hemoglobin 11.5 G/DL (12.0-16.0) L Hematocrit 35.0 % (37.0-47.0) L Mean Corpuscular Volume 87 FL (80-99) Mean Corpuscular Hemoglobin 28.8 PG (27.0-31.0) Mean Corpuscular Hemoglobin Concent 33.0 G/DL (32.0-36.0) Red Cell Distribution Width 15.0 % (11.6-14.8) H Platelet Count 266 K/UL (150-450) Mean Platelet Volume 6.2 FL (6.5-10.1) L Neutrophils (%) (Auto) 62.7 % (45.0-75.0) Lymphocytes (%) (Auto) 23.2 % (20.0-45.0) Monocytes (%) (Auto) 9.9 % (1.0-10.0) Eosinophils (%) (Auto) 3.5 % (0.0-3.0) H Basophils (%) (Auto) 0.7 % (0.0-2.0) Sodium Level 129 MMOL/L (136-145) L Potassium Level 4.5 MMOL/L (3.5-5.1) Chloride Level 97 MMOL/L (98-107) L Carbon Dioxide Level 24 MMOL/L (21-32) Anion Gap 8 mmol/L (5-15) Blood Urea Nitrogen 11 mg/dL (7-18) Creatinine 0.9 MG/DL (0.55-1.30) Estimat Glomerular Filtration Rate mL/min (>60) Glucose Level 95 MG/DL (74-106) Osmolality 267 mOsm/kg (297-317) L Uric Acid 2.8 MG/DL (2.6-7.2) Calcium Level 9.5 MG/DL (8.5-10.1) Phosphorus Level 4.3 MG/DL (2.5-4.9) Magnesium Level 2.1 MG/DL (1.8-2.4) Total Bilirubin 0.4 MG/DL (0.2-1.0) Aspartate Amino Transf (AST/SGOT) 25 U/L (15-37) Alanine Aminotransferase (ALT/SGPT) 10 U/L (12-78) L Alkaline Phosphatase 131 U/L (46-116) H Total Protein 7.3 G/DL (6.4-8.2) Albumin 3.4 G/DL (3.4-5.0) Globulin 3.9 g/dL Albumin/Globulin Ratio 0.9 (1.0-2.7) L Thyroid Stimulating Hormone (TSH) 0.215 uiU/mL (0.358-3.740) Prothrombin Time 10.2 SEC (9.30-11.50) Prothromb Time International Ratio 1.0 (0.9-1.1) Height (Feet): 5 Height (Inches): 0.00 Weight (Pounds): 111 Medications Current Medications Medications (Trade) Dose Ordered Sig/Celeste Route PRN Reason Start Time Stop Time Status Last Admin Dose Admin Acetaminophen (Tylenol) 500 mg Q4H PRN ORAL Mild Pain/Temp > 100.5 08/19/19 22:00 09/18/19 21:59 08/20/19 17:03 Albuterol/ Ipratropium (Albuterol/ Ipratropium) 3 ml Q6HRT PRN HHN Shortness of Breath 08/20/19 12:00 08/25/19 11:59 Clonidine HCl (Catapres Tab) 0.1 mg Q6HR PRN ORAL For High Blood Pressure 08/19/19 22:00 09/18/19 21:59 Docusate Sodium (Colace) 100 mg TID ORAL 08/20/19 18:00 09/19/19 08:59 08/20/19 18:36 Iohexol (OMNIPAQUE-300 100ml) 100 ml NOW PRN INJ Radiology Procedure 08/19/19 15:30 08/21/19 15:23 Lisinopril (Prinivil) 20 mg DAILY ORAL 08/20/19 09:00 09/19/19 08:59 08/20/19 09:10 Ondansetron HCl (Zofran) 4 mg Q6H PRN IVP Nausea & Vomiting 08/19/19 22:00 09/18/19 21:59 08/20/19 04:25 Sodium Chloride 1,000 ml @ 50 mls/hr Q20H IV 08/20/19 15:30 09/19/19 15:29 08/20/19 15:58 Assessment/Plan Problem List: (1) Abdominal pain Assessment & Plan: abdominal discomfort constipated CT noted no wbc exam fairly benign no n/v/f/c electrolytes abnormal no acute surgical intervention planned bowel regimen thank you will follow with recs ICD Codes: R10.9 - Unspecified abdominal pain SNOMED: 41221889 (2) Diverticulosis Assessment & Plan: Findings: Breathing motion significantly limits evaluation. There is a faintly visualized approximately 6 mm lung nodule just above the right hemidiaphragm. This was seen previously as well. There is basal atelectasis versus scarring that is mild. There is moderate calcification of the aorta and iliac arteries. The liver is low attenuation consistent with fatty infiltration. Gallbladder is grossly unremarkable. Diverticula noted in the sigmoid colon. Bladder is mildly distended. Uterus is atrophic. The appendix appears normal. The IVC is not well enhanced on this examination which was obtained fairly early after injection, i.e. more or less arterial phase exam. Having said that, the left iliac vein and left common femoral vein appear less enhanced than the right common femoral vein. The finding was similar on the prior occasion. Suggest correlation with the duplex Doppler venous ultrasound to exclude presence of a left lower extremity DVT. There is narrowing of intervertebral discs and accompanying endplate osteophyte formation. Hypertrophied facet joints also demonstrated. IMPRESSION: Possible left lower extremity DVT. Recommend ultrasound correlation. No evidence of appendicitis Fatty liver. Atherosclerotic vascular disease. Diverticulosis of the colon. No definite diverticulitis. Limited evaluation due to breathing motion. Pulmonary nodule at the right lung base. Consider 6 month follow-up CT chest per Fleischner Society criteria ICD Codes: K57.90 - Diverticulosis of intestine, part unspecified, without perforation or abscess without bleeding SNOMED: 778915951 (3) Constipation Assessment & Plan: bowel regimen ICD Codes: K59.00 - Constipation, unspecified SNOMED: 52638831 Larry Blackman Aug 20, 2019 21:38
[2019-08-20] MEDS: Miconazole Vag Cr 45gm Tube (100mg per applicator) VAGIN SCH (22:30)
[2019-08-21] VITALS: BP 161/68
--- NOTE | 2019-08-21 01:00 | Consultation ---
DATE OF CONSULTATION: 08/20/2019 GASTROENTEROLOGY CONSULTATION CONSULTING PHYSICIAN: Izaiah Mendoza M.D. CHIEF COMPLAINT: I was asked to see this patient by Dr. Becca Lewis for evaluation of some abdominal complaints and stool impaction. HISTORY OF PRESENT ILLNESS: The patient is a pleasant 89-year-old woman, who was admitted recently to the hospital for abdominal pain and possible appendicitis. She also had some electrolyte abnormalities. She had these problems resolved and she was discharged, but now returns to the hospital with similar symptoms. She complains of some urinary symptoms as well as difficulty passing bowel movements. There was a little concern about stool impaction, but the CT scan abdomen and pelvis did not confirm such pathology. The patient cannot recall if she has had a colonoscopy before, but her history is somewhat limited. PAST MEDICAL HISTORY: History of chronic constipation, diverticulosis, fatty liver, hemorrhoids, status post bladder tumor removal, history of exploratory laparotomy, status post hemorrhoid surgery. MEDICATIONS: See the chart list for details. FAMILY HISTORY: Noncontributory. SOCIAL HISTORY: The patient has had no recent history of smoking or drinking. ALLERGIES: Penicillin. PHYSICAL EXAMINATION: GENERAL: A pleasant woman, seen in her room with the nurse at bedside HEENT: Normocephalic and atraumatic. NECK: Supple. CHEST: Clear to auscultation. CARDIOVASCULAR: Revealed a regular rate. ABDOMEN: Soft with good bowel sounds. There is no obvious tenderness. EXTREMITIES: Revealed no edema. RECTAL: Exam with the nurse at bedside showed empty vault with scant amount of soft stool. LABORATORY DATA AND IMAGING: Noted. ASSESSMENT: This patient may have had some degree of fecal loading, but she has been cleared now and her rectum is empty. In addition, abdominal exam is somewhat benign and her labs also did not point any significant pathology. As such, she can be managed conservatively. I would place her on a bowel regimen and follow her exam and her laboratory parameters. Should her symptoms persist or return, then further workup will be necessary. RECOMMENDATIONS: Per above discussion and per orders written in the chart. Thank you for asking me to participate in the care of this patient. Iziaah Mendoza M.D. DR: REANNA JOB#: [id number] CC:
--- NOTE | 2019-08-21 01:25 | NUR ---
NURSE NOTES: Patient seems to get agitated and slightly confused at night. She needs instructions repeated and does not seem to acknowledge what is being said to her. Continue to monitor behavior overnights.
[2019-08-21] MEDS: Acetaminophen 500mg (ES) tab ORAL PRN ×2 (03:01→08:34)
[2019-08-21 04:00] VITALS: BP_SYST 166; BP_SYST 176; BP_DIAS 69
--- NOTE | 2019-08-21 06:14 | Hematology/Onc Progress Note ---
Assessment/Plan Assessment/Plan Assessment and Recs: # Imaging artifact -- initially showed Left lower extremity DVT -- dw radiologist and duplex is negative --> hold off on anticoagulation --> No dvt noted on us duplex and ct reviewed again, is likely artifact --> Dw radiologist 08/20 # Pulmonary nodule in the right left lung --> on ct imaging was noted --> consider ct scan in 6months # Anemia of chronic disease, with hgb approx 8 --> hgb trend 11.5--> 11.4 --> no bleeding noted at this time --> stable for anticoag # Hyponatremia --> as per renal # Abdominal pain --> Diverticulosis --> as per gi eval/surg # Fatty liver # Dvt ppx with lovenox 30 sq Greatly appreciate consultation. Subjective Constitutional: Denies: no symptoms, chills, fever, malaise, weakness, other HEENT: Denies: no symptoms, eye pain, blurred vision, tearing, double vision, ear pain, ear discharge, nose pain, nose congestion, throat pain, throat swelling, mouth pain, mouth swelling, other Cardiovascular: Denies: no symptoms, chest pain, edema, irregular heart rate, lightheadedness, palpitations, syncope, other Respiratory: Denies: no symptoms, cough, shortness of breath, SOB with excertion, SOB at rest, sputum, wheezing, other Gastrointestinal/Abdominal: Denies: no symptoms, abdomen distended, abdominal pain, black stools, tarry stools, blood in stool, constipated, diarrhea, difficulty swallowing, nausea, poor appetite, poor fluid intake, rectal bleeding , vomiting, other Genitourinary: Denies: no symptoms, burning, discharge, frequency, flank pain, hematuria, incontinence, pain, urgency, other Neurologic/Psychiatric: Denies: no symptoms, anxiety, depressed, emotional problems, headache, numbness, paresthesia, pre-existing deficit, seizure, tingling, tremors, weakness, other Endocrine: Denies: no symptoms, excessive sweating, flushing, intolerance to cold, intolerance to heat, increased hunger, increased thirst, increased urine, unexplained weight gain, unexplained weight loss, other Allergies: Coded Allergies: PENICILLINS (Unverified Allergy, Unknown, 08/05/19) Subjective 08/21: no events to report o/n, no bleeding or chills noted, reviewed imaging Objective Objective Current Medications Medications (Trade) Dose Ordered Sig/Celeste Route PRN Reason Start Time Stop Time Status Last Admin Dose Admin Acetaminophen (Tylenol) 500 mg Q4H PRN ORAL Mild Pain/Temp > 100.5 08/19/19 22:00 09/18/19 21:59 08/21/19 03:01 Albuterol/ Ipratropium (Albuterol/ Ipratropium) 3 ml Q6HRT PRN HHN Shortness of Breath 08/20/19 12:00 08/25/19 11:59 Clonidine HCl (Catapres Tab) 0.1 mg Q6HR PRN ORAL For High Blood Pressure 08/19/19 22:00 09/18/19 21:59 08/21/19 04:33 Docusate Sodium (Colace) 100 mg TID ORAL 08/20/19 18:00 09/19/19 08:59 08/20/19 18:36 Iohexol (OMNIPAQUE-300 100ml) 100 ml NOW PRN INJ Radiology Procedure 08/19/19 15:30 08/21/19 15:23 Lisinopril (Prinivil) 20 mg DAILY ORAL 08/20/19 09:00 09/19/19 08:59 08/20/19 09:10 Miconazole Nitrate (Monistat) 1 applic QHS VAGIN 08/20/19 22:30 09/19/19 22:29 08/20/19 22:30 Ondansetron HCl (Zofran) 4 mg Q6H PRN IVP Nausea & Vomiting 08/19/19 22:00 09/18/19 21:59 08/20/19 04:25 Sodium Chloride 1,000 ml @ 50 mls/hr Q20H IV 08/20/19 15:30 09/19/19 15:29 08/20/19 15:58 Last 24 Hour Vital Signs Date Time Temp Pulse Resp B/P (MAP) Pulse Ox O2 Delivery O2 Flow Rate FiO2 08/21/19 04:33 176/69 08/21/19 04:00 97.4 55 18 176/69 (104) 99 08/21/19 00:00 97.3 58 17 161/68 (99) 97 08/20/19 21:00 Room Air 08/20/19 20:00 98.1 65 18 161/74 (103) 97 08/20/19 16:00 98.3 54 20 155/70 (98) 98 08/20/19 12:00 98.6 59 18 157/71 (99) 98 08/20/19 09:10 152/69 08/20/19 09:00 Room Air 08/20/19 08:00 98.6 63 20 152/69 (96) 98 08/20/19 04:00 98.4 68 18 158/65 (96) 98 08/20/19 00:00 98.1 69 18 137/78 (97) 98 08/19/19 21:02 Room Air 08/19/19 20:40 97.7 61 18 163/77 (105) 99 08/19/19 20:25 97.9 66 20 150/68 96 Room Air 08/19/19 18:01 97.9 08/19/19 17:37 97.9 66 20 135/70 96 Room Air 08/19/19 15:10 73 20 Room Air 08/19/19 15:10 97.9 66 20 117/69 96 Room Air 08/19/19 15:06 97.9 73 20 117/69 (85) 96 Room Air Intake and Output 08/20/19 08/21/19 18:59 06:59 Intake Total 100 ml Balance 100 ml Intake Oral 100 ml # Voids 1 4 Labs Test 08/19/19 15:30 08/20/19 07:35 08/20/19 13:55 08/21/19 03:00 White Blood Count 8.6 K/UL (4.8-10.8) 6.7 K/UL (4.8-10.8) Red Blood Count 4.02 M/UL (4.20-5.40) 4.00 M/UL (4.20-5.40) Hemoglobin 11.8 G/DL (12.0-16.0) 11.5 G/DL (12.0-16.0) Hematocrit 35.1 % (37.0-47.0) 35.0 % (37.0-47.0) Mean Corpuscular Volume 87 FL (80-99) 87 FL (80-99) Mean Corpuscular Hemoglobin 29.3 PG (27.0-31.0) 28.8 PG (27.0-31.0) Mean Corpuscular Hemoglobin Concent 33.5 G/DL (32.0-36.0) 33.0 G/DL (32.0-36.0) Red Cell Distribution Width 14.0 % (11.6-14.8) 15.0 % (11.6-14.8) Platelet Count 295 K/UL (150-450) 266 K/UL (150-450) Mean Platelet Volume 6.5 FL (6.5-10.1) 6.2 FL (6.5-10.1) Neutrophils (%) (Auto) 70.0 % (45.0-75.0) 62.7 % (45.0-75.0) Lymphocytes (%) (Auto) 19.2 % (20.0-45.0) 23.2 % (20.0-45.0) Monocytes (%) (Auto) 7.4 % (1.0-10.0) 9.9 % (1.0-10.0) Eosinophils (%) (Auto) 2.5 % (0.0-3.0) 3.5 % (0.0-3.0) Basophils (%) (Auto) 0.9 % (0.0-2.0) 0.7 % (0.0-2.0) Urine Color Pale yellow Urine Appearance Clear Urine pH 6.5 (4.5-8.0) Urine Specific [place] 1.010 (1.005-1.035) Urine Protein Negative (NEGATIVE) Urine Glucose (UA) Negative (NEGATIVE) Urine Ketones Negative (NEGATIVE) Urine Blood Negative (NEGATIVE) Urine Nitrite Negative (NEGATIVE) Urine Bilirubin Negative (NEGATIVE) Urine Urobilinogen Normal MG/DL (0.0-1.0) Urine Leukocyte Esterase 1+ (NEGATIVE) Urine RBC 0-2 /HPF (0 - 2) Urine WBC 2-4 /HPF (0 - 2) Urine Squamous Epithelial Cells Occasional /LPF Urine Bacteria Many /HPF (NONE) Sodium Level 128 MMOL/L (136-145) 129 MMOL/L (136-145) Potassium Level 4.8 MMOL/L (3.5-5.1) 4.5 MMOL/L (3.5-5.1) Chloride Level 95 MMOL/L (98-107) 97 MMOL/L (98-107) Carbon Dioxide Level 25 MMOL/L (21-32) 24 MMOL/L (21-32) Anion Gap 8 mmol/L (5-15) 8 mmol/L (5-15) Blood Urea Nitrogen 12 mg/dL (7-18) 11 mg/dL (7-18) Creatinine 0.9 MG/DL (0.55-1.30) 0.9 MG/DL (0.55-1.30) Estimat Glomerular Filtration Rate mL/min (>60) mL/min (>60) Glucose Level 103 MG/DL (74-106) 95 MG/DL (74-106) Calcium Level 9.5 MG/DL (8.5-10.1) 9.5 MG/DL (8.5-10.1) Total Bilirubin 0.2 MG/DL (0.2-1.0) 0.4 MG/DL (0.2-1.0) Aspartate Amino Transf (AST/SGOT) 25 U/L (15-37) 25 U/L (15-37) Alanine Aminotransferase (ALT/SGPT) 11 U/L (12-78) 10 U/L (12-78) Alkaline Phosphatase 144 U/L (46-116) 131 U/L (46-116) C-Reactive Protein, Quantitative < 0.4 mg/dL (0.00-0.90) Total Protein 7.8 G/DL (6.4-8.2) 7.3 G/DL (6.4-8.2) Albumin 3.7 G/DL (3.4-5.0) 3.4 G/DL (3.4-5.0) Globulin 4.1 g/dL 3.9 g/dL Albumin/Globulin Ratio 0.9 (1.0-2.7) 0.9 (1.0-2.7) Lipase 275 U/L (73-393) Osmolality 267 mOsm/kg (297-317) Uric Acid 2.8 MG/DL (2.6-7.2) Phosphorus Level 4.3 MG/DL (2.5-4.9) Magnesium Level 2.1 MG/DL (1.8-2.4) Thyroid Stimulating Hormone (TSH) 0.215 uiU/mL (0.358-3.740) Prothrombin Time 10.2 SEC (9.30-11.50) Prothromb Time International Ratio 1.0 (0.9-1.1) Urine Osmolality 228 mOsm/kg (429-449) Urine Random Sodium 62 mmol/L (20-110) Height (Feet): 5 Height (Inches): 0.00 Weight (Pounds): 111 Objective Physical Exam: Vitals: reviewed General Appearance: NAD HEENT: normocephalic, atraumatic Neck: non-tender, normal alignment Respiratory/Chest: normal breath sounds bilaterally Cardiovascular/Chest: normal peripheral pulses, normal rate Abdomen: normal bowel sounds, soft, nontender Extremities: normal rom + left lower ext 1+ edema Tomy Saba MD Aug 21, 2019 06:14
[2019-08-21 06:36] LABS: BASOPHILS % (AUTO) 1.2 % (0.0-2.0); HEMATOCRIT 32.8 % (37.0-47.0); HEMOGLOBIN 10.7 G/DL (12.0-16.0); LYMPHOCYTES % (AUTO) 25.5 % (20.0-45.0); MEAN CORPUSCULAR VOLUME 88 FL (80-99); MONOCYTES % (AUTO) 7.4 % (1.0-10.0); NEUTROPHILS % (AUTO) 62.9 % (45.0-75.0); PLATELET COUNT 253 K/UL (150-450); RED BLOOD COUNT 3.72 M/UL (4.20-5.40); WHITE BLOOD COUNT 5.8 K/UL (4.8-10.8)
--- NOTE | 2019-08-21 07:28 | NUR ---
HAND-OFF: Report given to ADARSH Golden. Patient is asleep and in bed, VS stable.
[2019-08-21 07:33] LABS: ALANINE AMINOTRANSFERASE 9 U/L (12-78); ALBUMIN 3.1 G/DL (3.4-5.0); ALBUMIN/GLOBULIN RATIO 0.9 (1.0-2.7); ALKALINE PHOSPHATASE 114 U/L (46-116); ANION GAP 8 mmol/L (5-15); ASPARTATE AMINO TRANSFERASE 24 U/L (15-37); BILIRUBIN,TOTAL 0.3 MG/DL (0.2-1.0); BLOOD UREA NITROGEN 8 mg/dL (7-18); CALCIUM 9.1 MG/DL (8.5-10.1); CARBON DIOXIDE 23 MMOL/L (21-32); CHLORIDE 98 MMOL/L (98-107); CHOLESTEROL 184 MG/DL (< 200); CREATININE 0.7 MG/DL (0.55-1.30); HDL CHOLESTEROL 48 MG/DL (40-60); PHOSPHORUS 3.8 MG/DL (2.5-4.9); POTASSIUM 4.4 MMOL/L (3.5-5.1); SODIUM 129 MMOL/L (136-145); TRIGLYCERIDES 98 MG/DL (30-150)
--- NOTE | 2019-08-21 07:39 | NUR ---
NURSE NOTES: Received report from Broderick/RN, Patient is asleep, Lying semi-duncan's, Resting comfortably. On room air, No acute distress/SOB noted, IV site on Left FA, patent, no bleeding or infiltration noted. Normal saline running at 50ml/hr. Patient refused SCD's. Bed in low position and locked, Bed alarm on, side rails up x3, Call light within reach. Will continue plan of care.
[2019-08-21 08:00] VITALS: BP 146/54
[2019-08-21 08:09] LABS: BILIRUBIN,DIRECT 0.1 MG/DL (0.0-0.3)
[2019-08-21] MEDS: Docusate 100mg cap ORAL SCH ×3 (08:33→17:45)
[2019-08-21] MEDS: Lisinopril 20mg tab ORAL SCH (08:33)
[2019-08-21] MEDS: Enoxaparin 30mg Inj SUBQ SCH (08:37)
[2019-08-21 12:00] VITALS: BP 140/80
--- NOTE | 2019-08-21 15:10 | NUR ---
HAND-OFF: Report given to Lizz/RN, Patient is lying semi-duncan's, No acute distress/SOB noted. Endorsed plan of care.
--- NOTE | 2019-08-21 15:11 | NUR ---
NURSE NOTES: REPORT RECEIVED FROM MARIN RN (2 [facility]). NEEDS MET AT THIS TIME.PATIENT AWAKE IN BED. BED IN LOW AND LOCKED POSITION. CALL LIGHT WITHIN REACH.
[2019-08-21 16:00] VITALS: BP 106/67
--- NOTE | 2019-08-21 17:00 | NUR ---
NURSE NOTES: PLACED CALL TO DR. AKERS PER PATIENT'S DAUGHTER OF HAVING C/O VAGINAL AND BURNING UPON URINATION AND ACROSS PELVIS AREA. RETURN CALL RECEIVED. PER DR. HOLDER PLACED CALL TO OB/ GYNE WITH CONCERNING PAIN. DR. PRINCE TO SEE PATIENT FOR SYMPTOMS. PATIENT MADE AWARE .
--- NOTE | 2019-08-21 18:15 | NUR ---
NURSE NOTES: CALL RECEIVED FROM DR. SAMPSON TO CONSULT FOR PATIENT'S PROBLEM. REVIEWED CT ABD/PELVIS VIA PHONE WITH MD. NEW ORDERS RECEIVED AND CARRIED OUT.
--- NOTE | 2019-08-21 18:52 | NUR ---
NURSE NOTES: MOISTURE BARRIER CREAM APPLIED TO VAGINA AREA PRN FOR DRYNESS ORDERED BY MD VIA "OTHER NURSING ORDERS".
--- NOTE | 2019-08-21 19:25 | NUR ---
HAND-OFF: Report given to JOSE CARLOS LAGUNAS RN.
[2019-08-21 20:00] VITALS: BP 158/61
--- NOTE | 2019-08-21 20:12 | NUR ---
NURSE NOTES: Received AM report from ADARSH Zamudio. Patient is sleeping in bed. No c/o of pain. NS running at 50mL/hr to left forearm IV. IV site asymptomatic with dressing c/d/i. Bed in low and locked position with bed alarm on. Will continue to monitor.
--- NOTE | 2019-08-21 21:17 | General Progress Note ---
Assessment/Plan Assessment/Plan: Assessment - Vague abd/pelvic pain, ? resolved - diverticulosis - mild anemia - mild hyponatremia Recommendation - check stool OB - bowel regimen - po as tolerated - [employer] follow up Subjective Allergies: Coded Allergies: PENICILLINS (Unverified Allergy, Unknown, 08/05/19) Subjective Above noted seems comfortable denies complaints to me d/w grand daughter at length pt c/o some abd/pelvic pain later in the same day Objective Last 24 Hour Vital Signs Date Time Temp Pulse Resp B/P (MAP) Pulse Ox O2 Delivery O2 Flow Rate FiO2 08/21/19 18:15 97.2 08/21/19 16:00 97.2 53 20 106/67 (80) 99 08/21/19 12:00 98.1 65 18 140/80 (100) 98 08/21/19 09:00 Room Air 08/21/19 08:33 146/54 08/21/19 08:00 97.9 62 20 146/54 (84) 99 08/21/19 04:33 176/69 08/21/19 04:00 97.4 55 18 176/69 (104) 99 08/21/19 00:00 97.3 58 17 161/68 (99) 97 Intake and Output 08/20/19 08/21/19 19:00 07:00 Intake Total 100 ml Balance 100 ml Intake Oral 100 ml # Voids 1 4 Laboratory Tests 08/21/19 03:00: Urine Osmolality 228L, Urine Random Sodium 62 08/21/19 05:25: White Blood Count 5.8, Red Blood Count 3.72L, Hemoglobin 10.7L, Hematocrit 32.8L , Mean Corpuscular Volume 88, Mean Corpuscular Hemoglobin 28.8, Mean Corpuscular Hemoglobin Concent 32.6, Red Cell Distribution Width 15.0H, Platelet Count 253, Mean Platelet Volume 5.7L, Neutrophils (%) (Auto) 62.9, Lymphocytes (%) (Auto) 25.5, Monocytes (%) (Auto) 7.4, Eosinophils (%) (Auto) 3.0, Basophils (%) (Auto) 1.2, Sodium Level [Pending], Potassium Level [Pending] , Chloride Level [Pending], Carbon Dioxide Level [Pending], Anion Gap 8, Blood Urea Nitrogen [Pending], Creatinine [Pending], Estimat Glomerular Filtration Rate [Pending], Glucose Level [Pending], Osmolality 276L, Uric Acid 3.0, Calcium Level [Pending], Phosphorus Level 3.8, Magnesium Level 1.8, Total Bilirubin [Pending], Direct Bilirubin 0.1, Aspartate Amino Transf (AST/SGOT) [ Pending], Alanine Aminotransferase (ALT/SGPT) [Pending], Alkaline Phosphatase [ Pending], C-Reactive Protein, Quantitative < 0.4, Pro-B-Type Natriuretic Peptide 325H, Total Protein [Pending], Albumin [Pending], Globulin 3.5, Albumin/ Globulin Ratio 0.9L, Triglycerides Level 98, Cholesterol Level 184, LDL Cholesterol 120H, HDL Cholesterol 48, Cholesterol/HDL Ratio 3.8, Lipase 202 Height (Feet): 5 Height (Inches): 0.00 Weight (Pounds): 111 Objective Debilitated elderly woman NCAT supple CAT RRR abd soft ND NT, no mass no edema Izaiah Mendoza MD Aug 21, 2019 21:17
--- NOTE | 2019-08-21 21:34 | Pulmonology Progress Note ---
Assessment/Plan Assessment/Plan Pulmonary Progress Note: HPI: Patient is an 89 year old woman with a history of Hypertension. Recent admission to this hospital 2 weeks ago complaining of abdominal pain and diagnosed with hyponatremia, admitted with constipation and difficulty passing urine for 2 days, abdominal distention has become significant over the past few days. Some nausea, no vomiting. Denies fevers, chills, cough, URI symptoms or other changes in her health otherwise. PMH: Hypertension, Cardiac disease, previous Appendicitis PSH: See chart Allergies: Penicillins No new complaints Allergies: PENICILLINS All Other Systems: negative except mentioned in HPI Physical Exam Vital Signs Noted General: Awake and alert, no acute distress HEENT: NC/AT. EOMI. Cardiovascular: RRR. S1 and S2 normal. No murmur appreciated Resp: Normal work of breathing. No cough, wheezing or crackles appreciated Abdomen: Abdomen is soft, slightly distended but nontender. No rebound. No masses appreciated Skin: Intact. No abrasions, laceration or rash over the exposed skin MSK: Normal tone and bulk. Moving all extremities. No obvious deformity. Neuro: Awake and alert. Mentating appropriately. Impression: Abdominal pain Constipation Diverticulosis No DVT on LE Dupplex Fatty liver Right Lung nodule Plan Will need 6 month follow up on the lung nodule O2 PRN HHN PRN PPX [employer] meds Monitor labs Laboratory Tests Noted Test 08/19/19 15:30 White Blood Count 8.6 K/UL (4.8-10.8) Red Blood Count 4.02 M/UL (4.20-5.40) L Hemoglobin 11.8 G/DL (12.0-16.0) L Hematocrit 35.1 % (37.0-47.0) L Mean Corpuscular Volume 87 FL (80-99) Mean Corpuscular Hemoglobin 29.3 PG (27.0-31.0) Mean Corpuscular Hemoglobin Concent 33.5 G/DL (32.0-36.0) Red Cell Distribution Width 14.0 % (11.6-14.8) Platelet Count 295 K/UL (150-450) Mean Platelet Volume 6.5 FL (6.5-10.1) Neutrophils (%) (Auto) 70.0 % (45.0-75.0) Lymphocytes (%) (Auto) 19.2 % (20.0-45.0) L Monocytes (%) (Auto) 7.4 % (1.0-10.0) Eosinophils (%) (Auto) 2.5 % (0.0-3.0) Basophils (%) (Auto) 0.9 % (0.0-2.0) Urine Color Pale yellow Urine Appearance Clear Urine pH 6.5 (4.5-8.0) Urine Specific [place] 1.010 (1.005-1.035) Urine Protein Negative (NEGATIVE) Urine Glucose (UA) Negative (NEGATIVE) Urine Ketones Negative (NEGATIVE) Urine Blood Negative (NEGATIVE) Urine Nitrite Negative (NEGATIVE) Urine Bilirubin Negative (NEGATIVE) Urine Urobilinogen Normal MG/DL (0.0-1.0) Urine Leukocyte Esterase 1+ (NEGATIVE) H Urine RBC 0-2 /HPF (0 - 2) Urine WBC 2-4 /HPF (0 - 2) Urine Squamous Epithelial Cells Occasional /LPF Urine Bacteria Many /HPF (NONE) H Sodium Level 128 MMOL/L (136-145) L Potassium Level 4.8 MMOL/L (3.5-5.1) Chloride Level 95 MMOL/L (98-107) L Carbon Dioxide Level 25 MMOL/L (21-32) Anion Gap 8 mmol/L (5-15) Blood Urea Nitrogen 12 mg/dL (7-18) Creatinine 0.9 MG/DL (0.55-1.30) Estimate Glomerular Filtration Rate mL/min (>60) Glucose Level 103 MG/DL (74-106) Calcium Level 9.5 MG/DL (8.5-10.1) Total Bilirubin 0.2 MG/DL (0.2-1.0) Aspartate Amino Transferase (AST) 25 U/L (15-37) Alanine Aminotransferase (ALT) 11 U/L (12-78) L Alkaline Phosphatase 144 U/L (46-116) H C-Reactive Protein, Quantitative < 0.4 mg/dL (0.00-0.90) Total Protein 7.8 G/DL (6.4-8.2) Albumin 3.7 G/DL (3.4-5.0) Globulin 4.1 g/dL Albumin/Globulin Ratio 0.9 (1.0-2.7) L Lipase 275 U/L (73-393) CT Abdomen Pelvis : Findings: Breathing motion significantly limits evaluation. There is a faintly visualized approximately 6 mm lung nodule just above the right hemidiaphragm. This was seen previously as well. There is basal atelectasis versus scarring that is mild. There is moderate calcification of the aorta and iliac arteries. The liver is low attenuation consistent with fatty infiltration. Gallbladder is grossly unremarkable. Diverticula noted in the sigmoid colon. Bladder is mildly distended. Uterus is atrophic. The appendix appears normal. The IVC is not well enhanced on this examination which was obtained fairly early after injection, i.e. more or less arterial phase exam. Having said that, the left iliac vein and left common femoral vein appear less enhanced than the right common femoral vein. The finding was similar on the prior occasion. Suggest correlation with the duplex Doppler venous ultrasound to exclude presence of a left lower extremity DVT. There is narrowing of intervertebral discs and accompanying endplate osteophyte formation. Hypertrophied facet joints also demonstrated. IMPRESSION: Possible left lower extremity DVT. Recommend ultrasound correlation. No evidence of appendicitis Fatty liver. Atherosclerotic vascular disease. Diverticulosis of the colon. No definite diverticulitis. Limited evaluation due to breathing motion. Pulmonary nodule at the right lung base. LE Dupplex: No DVT CT Chest: 6 mm right basilar subpleural nodule. 7 mm left basilar semicircular opacity. Recommend short interval follow-up CT scan in 6-12 months for follow- up of both of these. No acute process otherwise Basilar atelectatic changes on the right. Bilateral apical scarring Evidence of prior median sternotomy Mild scoliosis and degenerative spondylosis Subjective ROS Limited/Unobtainable: No Allergies: Coded Allergies: PENICILLINS (Unverified Allergy, Unknown, 08/05/19) Objective Last 24 Hour Vital Signs Date Time Temp Pulse Resp B/P (MAP) Pulse Ox O2 Delivery O2 Flow Rate FiO2 08/21/19 18:15 97.2 08/21/19 16:00 97.2 53 20 106/67 (80) 99 08/21/19 12:00 98.1 65 18 140/80 (100) 98 08/21/19 09:00 Room Air 08/21/19 08:33 146/54 08/21/19 08:00 97.9 62 20 146/54 (84) 99 08/21/19 04:33 176/69 08/21/19 04:00 97.4 55 18 176/69 (104) 99 08/21/19 00:00 97.3 58 17 161/68 (99) 97 Intake and Output 08/20/19 08/21/19 19:00 07:00 Intake Total 100 ml Balance 100 ml Intake Oral 100 ml # Voids 1 4 Microbiology Date/Time Source Procedure Growth Status 08/19/19 15:30 Urine,Clean Catch Urine Culture - Preliminary Strep Species, Gamma-Hemolytic Resulted 08/19/19 20:30 Rectum Received Laboratory Tests 08/21/19 03:00: Urine Osmolality 228L, Urine Random Sodium 62 08/21/19 05:25: White Blood Count 5.8, Red Blood Count 3.72L, Hemoglobin 10.7L, Hematocrit 32.8L , Mean Corpuscular Volume 88, Mean Corpuscular Hemoglobin 28.8, Mean Corpuscular Hemoglobin Concent 32.6, Red Cell Distribution Width 15.0H, Platelet Count 253, Mean Platelet Volume 5.7L, Neutrophils (%) (Auto) 62.9, Lymphocytes (%) (Auto) 25.5, Monocytes (%) (Auto) 7.4, Eosinophils (%) (Auto) 3.0, Basophils (%) (Auto) 1.2, Sodium Level [Pending], Potassium Level [Pending] , Chloride Level [Pending], Carbon Dioxide Level [Pending], Anion Gap 8, Blood Urea Nitrogen [Pending], Creatinine [Pending], Estimat Glomerular Filtration Rate [Pending], Glucose Level [Pending], Osmolality 276L, Uric Acid 3.0, Calcium Level [Pending], Phosphorus Level 3.8, Magnesium Level 1.8, Total Bilirubin [Pending], Direct Bilirubin 0.1, Aspartate Amino Transf (AST/SGOT) [ Pending], Alanine Aminotransferase (ALT/SGPT) [Pending], Alkaline Phosphatase [ Pending], C-Reactive Protein, Quantitative < 0.4, Pro-B-Type Natriuretic Peptide 325H, Total Protein [Pending], Albumin [Pending], Globulin 3.5, Albumin/ Globulin Ratio 0.9L, Triglycerides Level 98, Cholesterol Level 184, LDL Cholesterol 120H, HDL Cholesterol 48, Cholesterol/HDL Ratio 3.8, Lipase 202 Current Medications Medications (Trade) Dose Ordered Sig/Celeste Route PRN Reason Start Time Stop Time Status Last Admin Dose Admin Acetaminophen (Tylenol) 650 mg Q4H PRN ORAL Mild Pain/Temp > 100.5 08/21/19 10:45 09/20/19 10:44 08/21/19 17:45 Albuterol/ Ipratropium (Albuterol/ Ipratropium) 3 ml Q6HRT PRN HHN Shortness of Breath 08/20/19 12:00 08/25/19 11:59 Clonidine HCl (Catapres Tab) 0.1 mg Q6HR PRN ORAL For High Blood Pressure 08/19/19 22:00 09/18/19 21:59 08/21/19 04:33 Docusate Sodium (Colace) 100 mg TID ORAL 08/20/19 18:00 09/19/19 08:59 08/21/19 17:45 Enoxaparin Sodium (Lovenox) 30 mg DAILY SUBQ 08/21/19 09:00 09/20/19 08:59 08/21/19 08:37 Lisinopril (Prinivil) 20 mg DAILY ORAL 08/20/19 09:00 09/19/19 08:59 08/21/19 08:33 Miconazole Nitrate (Monistat) 1 applic QHS VAGIN 08/20/19 22:30 09/19/19 22:29 08/20/19 22:30 Ondansetron HCl (Zofran) 4 mg Q6H PRN IVP Nausea & Vomiting 08/19/19 22:00 09/18/19 21:59 08/20/19 04:25 Sodium Chloride 1,000 ml @ 50 mls/hr Q20H IV 08/20/19 15:30 09/19/19 15:29 08/21/19 11:43 Carlito Perla MD Aug 21, 2019 21:34
--- NOTE | 2019-08-21 21:39 | General Progress Note ---
Assessment/Plan Problem List: (1) Abdominal pain ICD Codes: R10.9 - Unspecified abdominal pain SNOMED: 52768468 (2) Lung nodule ICD Codes: R91.1 - Solitary pulmonary nodule SNOMED: 713607078 (3) Constipation ICD Codes: K59.00 - Constipation, unspecified SNOMED: 99740039 (4) Hypertension ICD Codes: I10 - Essential (primary) hypertension SNOMED: 69904342 (5) Diverticulosis ICD Codes: K57.90 - Diverticulosis of intestine, part unspecified, without perforation or abscess without bleeding SNOMED: 749836931 Status: progressing Assessment/Plan: abdominal pian vaginal pain .consulted crystalizer constipation improved reviewed chart and labs Subjective ROS Limited/Unobtainable: Yes Allergies: Coded Allergies: PENICILLINS (Unverified Allergy, Unknown, 08/05/19) Objective Last 24 Hour Vital Signs Date Time Temp Pulse Resp B/P (MAP) Pulse Ox O2 Delivery O2 Flow Rate FiO2 08/21/19 18:15 97.2 08/21/19 16:00 97.2 53 20 106/67 (80) 99 08/21/19 12:00 98.1 65 18 140/80 (100) 98 08/21/19 09:00 Room Air 08/21/19 08:33 146/54 08/21/19 08:00 97.9 62 20 146/54 (84) 99 08/21/19 04:33 176/69 08/21/19 04:00 97.4 55 18 176/69 (104) 99 08/21/19 00:00 97.3 58 17 161/68 (99) 97 Intake and Output 08/20/19 08/21/19 19:00 07:00 Intake Total 100 ml Balance 100 ml Intake Oral 100 ml # Voids 1 4 Laboratory Tests 08/21/19 03:00: Urine Osmolality 228L, Urine Random Sodium 62 08/21/19 05:25: White Blood Count 5.8, Red Blood Count 3.72L, Hemoglobin 10.7L, Hematocrit 32.8L , Mean Corpuscular Volume 88, Mean Corpuscular Hemoglobin 28.8, Mean Corpuscular Hemoglobin Concent 32.6, Red Cell Distribution Width 15.0H, Platelet Count 253, Mean Platelet Volume 5.7L, Neutrophils (%) (Auto) 62.9, Lymphocytes (%) (Auto) 25.5, Monocytes (%) (Auto) 7.4, Eosinophils (%) (Auto) 3.0, Basophils (%) (Auto) 1.2, Sodium Level [Pending], Potassium Level [Pending] , Chloride Level [Pending], Carbon Dioxide Level [Pending], Anion Gap 8, Blood Urea Nitrogen [Pending], Creatinine [Pending], Estimat Glomerular Filtration Rate [Pending], Glucose Level [Pending], Osmolality 276L, Uric Acid 3.0, Calcium Level [Pending], Phosphorus Level 3.8, Magnesium Level 1.8, Total Bilirubin [Pending], Direct Bilirubin 0.1, Aspartate Amino Transf (AST/SGOT) [ Pending], Alanine Aminotransferase (ALT/SGPT) [Pending], Alkaline Phosphatase [ Pending], C-Reactive Protein, Quantitative < 0.4, Pro-B-Type Natriuretic Peptide 325H, Total Protein [Pending], Albumin [Pending], Globulin 3.5, Albumin/ Globulin Ratio 0.9L, Triglycerides Level 98, Cholesterol Level 184, LDL Cholesterol 120H, HDL Cholesterol 48, Cholesterol/HDL Ratio 3.8, Lipase 202 Height (Feet): 5 Height (Inches): 0.00 Weight (Pounds): 111 Neck: supple Cardiovascular: normal rate Respiratory/Chest: lungs clear Abdomen: soft Becca Lewis MD Aug 21, 2019 21:39
[2019-08-21] MEDS: Miconazole Vag Cr 45gm Tube (100mg per applicator) VAGIN SCH (21:45)
--- NOTE | 2019-08-21 22:27 | Surgery Progress Note ---
Surgery Progress Note Subjective Additional Comments no acute events pain mainly vaginal now. no longer abdominal labs okay afebrile, HD Stable Objective Last 24 Hour Vital Signs Date Time Temp Pulse Resp B/P (MAP) Pulse Ox O2 Delivery O2 Flow Rate FiO2 08/21/19 20:00 97.7 60 16 158/61 (93) 99 08/21/19 18:15 97.2 08/21/19 16:00 97.2 53 20 106/67 (80) 99 08/21/19 12:00 98.1 65 18 140/80 (100) 98 08/21/19 09:00 Room Air 08/21/19 08:33 146/54 08/21/19 08:00 97.9 62 20 146/54 (84) 99 08/21/19 04:33 176/69 08/21/19 04:00 97.4 55 18 176/69 (104) 99 08/21/19 00:00 97.3 58 17 161/68 (99) 97 I&O Intake and Output 08/20/19 08/21/19 19:00 07:00 Intake Total 100 ml Balance 100 ml Intake Oral 100 ml # Voids 1 4 Cardiovascular: RSR Respiratory: clear Abdomen: soft, flat, non-tender, present bowel sounds, non-distended Extremities: no tenderness, no cyanosis Laboratory Tests Test 08/21/19 03:00 08/21/19 05:25 Urine Osmolality 228 mOsm/kg (429-449) L Urine Random Sodium 62 mmol/L (20-110) White Blood Count 5.8 K/UL (4.8-10.8) Red Blood Count 3.72 M/UL (4.20-5.40) L Hemoglobin 10.7 G/DL (12.0-16.0) L Hematocrit 32.8 % (37.0-47.0) L Mean Corpuscular Volume 88 FL (80-99) Mean Corpuscular Hemoglobin 28.8 PG (27.0-31.0) Mean Corpuscular Hemoglobin Concent 32.6 G/DL (32.0-36.0) Red Cell Distribution Width 15.0 % (11.6-14.8) H Platelet Count 253 K/UL (150-450) Mean Platelet Volume 5.7 FL (6.5-10.1) L Neutrophils (%) (Auto) 62.9 % (45.0-75.0) Lymphocytes (%) (Auto) 25.5 % (20.0-45.0) Monocytes (%) (Auto) 7.4 % (1.0-10.0) Eosinophils (%) (Auto) 3.0 % (0.0-3.0) Basophils (%) (Auto) 1.2 % (0.0-2.0) Sodium Level Pending Potassium Level Pending Chloride Level Pending Carbon Dioxide Level Pending Anion Gap 8 mmol/L (5-15) Blood Urea Nitrogen Pending Creatinine Pending Estimat Glomerular Filtration Rate Pending Glucose Level Pending Osmolality 276 mOsm/kg (297-317) L Uric Acid 3.0 MG/DL (2.6-7.2) Calcium Level Pending Phosphorus Level 3.8 MG/DL (2.5-4.9) Magnesium Level 1.8 MG/DL (1.8-2.4) Total Bilirubin Pending Direct Bilirubin 0.1 MG/DL (0.0-0.3) Aspartate Amino Transf (AST/SGOT) Pending Alanine Aminotransferase (ALT/SGPT) Pending Alkaline Phosphatase Pending C-Reactive Protein, Quantitative < 0.4 mg/dL (0.00-0.90) Pro-B-Type Natriuretic Peptide 325 pg/mL (0-125) H Total Protein Pending Albumin Pending Globulin 3.5 g/dL Albumin/Globulin Ratio 0.9 (1.0-2.7) L Triglycerides Level 98 MG/DL (30-150) Cholesterol Level 184 MG/DL (< 200) LDL Cholesterol 120 mg/dL (<100) H HDL Cholesterol 48 MG/DL (40-60) Cholesterol/HDL Ratio 3.8 (3.3-4.4) Lipase 202 U/L (73-393) Plan Problems: (1) Abdominal pain Assessment & Plan: abdominal discomfort constipated CT noted no wbc exam fairly benign no n/v/f/c electrolytes abnormal no acute surgical intervention planned bowel regimen pelvic pain now/vaginal [facility] consult thank you will follow with recs (2) Diverticulosis Assessment & Plan: Findings: Breathing motion significantly limits evaluation. There is a faintly visualized approximately 6 mm lung nodule just above the right hemidiaphragm. This was seen previously as well. There is basal atelectasis versus scarring that is mild. There is moderate calcification of the aorta and iliac arteries. The liver is low attenuation consistent with fatty infiltration. Gallbladder is grossly unremarkable. Diverticula noted in the sigmoid colon. Bladder is mildly distended. Uterus is atrophic. The appendix appears normal. The IVC is not well enhanced on this examination which was obtained fairly early after injection, i.e. more or less arterial phase exam. Having said that, the left iliac vein and left common femoral vein appear less enhanced than the right common femoral vein. The finding was similar on the prior occasion. Suggest correlation with the duplex Doppler venous ultrasound to exclude presence of a left lower extremity DVT. There is narrowing of intervertebral discs and accompanying endplate osteophyte formation. Hypertrophied facet joints also demonstrated. IMPRESSION: Possible left lower extremity DVT. Recommend ultrasound correlation. No evidence of appendicitis Fatty liver. Atherosclerotic vascular disease. Diverticulosis of the colon. No definite diverticulitis. Limited evaluation due to breathing motion. Pulmonary nodule at the right lung base. Consider 6 month follow-up CT chest per Fleischner Society criteria (3) Constipation Assessment & Plan: bowel regimen Larry Blackman Aug 21, 2019 22:27
[2019-08-22] VITALS: BP 163/66
[2019-08-22 04:00] VITALS: BP 140/55
[2019-08-22 06:41] LABS: BASOPHILS % (AUTO) 1.4 % (0.0-2.0); EOSINOPHILS % (AUTO) 4.3 % (0.0-3.0); HEMATOCRIT 33.2 % (37.0-47.0); HEMOGLOBIN 10.8 G/DL (12.0-16.0); LYMPHOCYTES % (AUTO) 35.1 % (20.0-45.0); MEAN CORPUSCULAR VOLUME 88 FL (80-99); MONOCYTES % (AUTO) 9.5 % (1.0-10.0); NEUTROPHILS % (AUTO) 49.7 % (45.0-75.0); PLATELET COUNT 261 K/UL (150-450); RED BLOOD COUNT 3.77 M/UL (4.20-5.40); WHITE BLOOD COUNT 4.2 K/UL (4.8-10.8)
[2019-08-22 06:58] LABS: ANION GAP 9 mmol/L (5-15); BLOOD UREA NITROGEN 7 mg/dL (7-18); CALCIUM 9.1 MG/DL (8.5-10.1); CARBON DIOXIDE 22 MMOL/L (21-32); CHLORIDE 98 MMOL/L (98-107); CREATININE 0.7 MG/DL (0.55-1.30); POTASSIUM 4.1 MMOL/L (3.5-5.1); SODIUM 129 MMOL/L (136-145)
--- NOTE | 2019-08-22 07:34 | NUR ---
HAND-OFF: Report given to ADARSH Ritchie.
[2019-08-22 08:00] VITALS: BP 142/73
--- NOTE | 2019-08-22 08:36 | NUR ---
NURSE NOTES: Pt awake in sitting up in bed, verbalized that she was feeling some discomfort to vaginal area due to cream. RT seen pt , remains on clear liquid diet. Will follow up with MD for dietary orders
[2019-08-22] MEDS ORDERED: NS 500ML ONE (09:22)
[2019-08-22] MEDS ORDERED: Tubing IV Secondary IV ONE (09:22)
--- NOTE | 2019-08-22 09:49 | Hematology/Onc Progress Note ---
Assessment/Plan Assessment/Plan Assessment and Recs: # Imaging artifact -- initially showed Left lower extremity DVT -- dw radiologist and duplex is negative --> hold off on anticoagulant --> No dvt noted on us duplex and ct reviewed again, is likely artifact --> Dw radiologist 08/20 # Pulmonary nodule in the right left lung --> on ct imaging was noted --> consider ct scan in 6months # Anemia of chronic disease, with hgb approx 8 --> hgb trend 11.5--> 11.4-->10.8 --> hgb goal >7, transfuse prn --> no bleeding noted at this time --> stable for anticoag # Hyponatremia --> as per renal # Abdominal pain --> Diverticulosis --> as per gi eval/surg # Fatty liver # Dvt ppx with lovenox 30 sq Greatly appreciate consultation. Subjective Allergies: Coded Allergies: PENICILLINS (Unverified Allergy, Unknown, 08/05/19) Subjective 08/21: no events to report o/n, no bleeding or chills noted, reviewed imaging 08/22: resting in bed, no acute events, labs reviewed, afebrile Objective Objective Current Medications Medications (Trade) Dose Ordered Sig/Celeste Route PRN Reason Start Time Stop Time Status Last Admin Dose Admin Acetaminophen (Tylenol) 650 mg Q4H PRN ORAL Mild Pain/Temp > 100.5 08/21/19 10:45 09/20/19 10:44 08/22/19 06:50 Albuterol/ Ipratropium (Albuterol/ Ipratropium) 3 ml Q6HRT PRN HHN Shortness of Breath 08/20/19 12:00 08/25/19 11:59 Clonidine HCl (Catapres Tab) 0.1 mg Q6HR PRN ORAL For High Blood Pressure 08/19/19 22:00 09/18/19 21:59 08/21/19 04:33 Docusate Sodium (Colace) 100 mg TID ORAL 08/20/19 18:00 09/19/19 08:59 08/21/19 17:45 Enoxaparin Sodium (Lovenox) 30 mg DAILY SUBQ 08/21/19 09:00 09/20/19 08:59 08/21/19 08:37 Lisinopril (Prinivil) 20 mg DAILY ORAL 08/20/19 09:00 09/19/19 08:59 08/21/19 08:33 Miconazole Nitrate (Monistat) 1 applic QHS VAGIN 08/20/19 22:30 09/19/19 22:29 08/21/19 21:45 Ondansetron HCl (Zofran) 4 mg Q6H PRN IVP Nausea & Vomiting 08/19/19 22:00 09/18/19 21:59 08/20/19 04:25 Sodium Chloride 1,000 ml @ 50 mls/hr Q20H IV 08/20/19 15:30 09/19/19 15:29 08/22/19 05:25 Last 24 Hour Vital Signs Date Time Temp Pulse Resp B/P (MAP) Pulse Ox O2 Delivery O2 Flow Rate FiO2 08/22/19 08:00 97.7 58 20 142/73 (96) 94 08/22/19 04:00 97.5 72 16 140/55 (83) 98 08/22/19 00:00 97.5 52 16 163/66 (98) 98 08/21/19 21:00 Room Air 08/21/19 20:00 97.7 60 16 158/61 (93) 99 08/21/19 19:25 63 18 98 Room Air 21 08/21/19 18:15 97.2 08/21/19 16:00 97.2 53 20 106/67 (80) 99 08/21/19 12:00 98.1 65 18 140/80 (100) 98 08/21/19 09:00 Room Air 08/21/19 08:33 146/54 08/21/19 08:00 97.9 62 20 146/54 (84) 99 08/21/19 04:33 176/69 08/21/19 04:00 97.4 55 18 176/69 (104) 99 08/21/19 00:00 97.3 58 17 161/68 (99) 97 08/20/19 21:00 Room Air 08/20/19 20:00 98.1 65 18 161/74 (103) 97 08/20/19 16:00 98.3 54 20 155/70 (98) 98 08/20/19 12:00 98.6 59 18 157/71 (99) 98 Intake and Output 08/21/19 08/22/19 18:59 06:59 Intake Total 490 ml 690 ml Output Total 600 ml Balance 490 ml 90 ml Intake Oral 240 ml 240 ml IV Total 250 ml 450 ml Output Urine Total 600 ml # Voids 4 3 Labs Test 08/19/19 15:30 08/20/19 07:35 08/20/19 13:55 08/21/19 03:00 White Blood Count 8.6 K/UL (4.8-10.8) 6.7 K/UL (4.8-10.8) Red Blood Count 4.02 M/UL (4.20-5.40) 4.00 M/UL (4.20-5.40) Hemoglobin 11.8 G/DL (12.0-16.0) 11.5 G/DL (12.0-16.0) Hematocrit 35.1 % (37.0-47.0) 35.0 % (37.0-47.0) Mean Corpuscular Volume 87 FL (80-99) 87 FL (80-99) Mean Corpuscular Hemoglobin 29.3 PG (27.0-31.0) 28.8 PG (27.0-31.0) Mean Corpuscular Hemoglobin Concent 33.5 G/DL (32.0-36.0) 33.0 G/DL (32.0-36.0) Red Cell Distribution Width 14.0 % (11.6-14.8) 15.0 % (11.6-14.8) Platelet Count 295 K/UL (150-450) 266 K/UL (150-450) Mean Platelet Volume 6.5 FL (6.5-10.1) 6.2 FL (6.5-10.1) Neutrophils (%) (Auto) 70.0 % (45.0-75.0) 62.7 % (45.0-75.0) Lymphocytes (%) (Auto) 19.2 % (20.0-45.0) 23.2 % (20.0-45.0) Monocytes (%) (Auto) 7.4 % (1.0-10.0) 9.9 % (1.0-10.0) Eosinophils (%) (Auto) 2.5 % (0.0-3.0) 3.5 % (0.0-3.0) Basophils (%) (Auto) 0.9 % (0.0-2.0) 0.7 % (0.0-2.0) Urine Color Pale yellow Urine Appearance Clear Urine pH 6.5 (4.5-8.0) Urine Specific [place] 1.010 (1.005-1.035) Urine Protein Negative (NEGATIVE) Urine Glucose (UA) Negative (NEGATIVE) Urine Ketones Negative (NEGATIVE) Urine Blood Negative (NEGATIVE) Urine Nitrite Negative (NEGATIVE) Urine Bilirubin Negative (NEGATIVE) Urine Urobilinogen Normal MG/DL (0.0-1.0) Urine Leukocyte Esterase 1+ (NEGATIVE) Urine RBC 0-2 /HPF (0 - 2) Urine WBC 2-4 /HPF (0 - 2) Urine Squamous Epithelial Cells Occasional /LPF Urine Bacteria Many /HPF (NONE) Sodium Level 128 MMOL/L (136-145) 129 MMOL/L (136-145) Potassium Level 4.8 MMOL/L (3.5-5.1) 4.5 MMOL/L (3.5-5.1) Chloride Level 95 MMOL/L (98-107) 97 MMOL/L (98-107) Carbon Dioxide Level 25 MMOL/L (21-32) 24 MMOL/L (21-32) Anion Gap 8 mmol/L (5-15) 8 mmol/L (5-15) Blood Urea Nitrogen 12 mg/dL (7-18) 11 mg/dL (7-18) Creatinine 0.9 MG/DL (0.55-1.30) 0.9 MG/DL (0.55-1.30) Estimat Glomerular Filtration Rate mL/min (>60) mL/min (>60) Glucose Level 103 MG/DL (74-106) 95 MG/DL (74-106) Calcium Level 9.5 MG/DL (8.5-10.1) 9.5 MG/DL (8.5-10.1) Total Bilirubin 0.2 MG/DL (0.2-1.0) 0.4 MG/DL (0.2-1.0) Aspartate Amino Transf (AST/SGOT) 25 U/L (15-37) 25 U/L (15-37) Alanine Aminotransferase (ALT/SGPT) 11 U/L (12-78) 10 U/L (12-78) Alkaline Phosphatase 144 U/L (46-116) 131 U/L (46-116) C-Reactive Protein, Quantitative < 0.4 mg/dL (0.00-0.90) Total Protein 7.8 G/DL (6.4-8.2) 7.3 G/DL (6.4-8.2) Albumin 3.7 G/DL (3.4-5.0) 3.4 G/DL (3.4-5.0) Globulin 4.1 g/dL 3.9 g/dL Albumin/Globulin Ratio 0.9 (1.0-2.7) 0.9 (1.0-2.7) Lipase 275 U/L (73-393) Osmolality 267 mOsm/kg (297-317) Uric Acid 2.8 MG/DL (2.6-7.2) Phosphorus Level 4.3 MG/DL (2.5-4.9) Magnesium Level 2.1 MG/DL (1.8-2.4) Thyroid Stimulating Hormone (TSH) 0.215 uiU/mL (0.358-3.740) Prothrombin Time 10.2 SEC (9.30-11.50) Prothromb Time International Ratio 1.0 (0.9-1.1) Urine Osmolality 228 mOsm/kg (429-449) Urine Random Sodium 62 mmol/L (20-110) Test 08/21/19 05:25 08/22/19 05:10 White Blood Count 5.8 K/UL (4.8-10.8) 4.2 K/UL (4.8-10.8) Red Blood Count 3.72 M/UL (4.20-5.40) 3.77 M/UL (4.20-5.40) Hemoglobin 10.7 G/DL (12.0-16.0) 10.8 G/DL (12.0-16.0) Hematocrit 32.8 % (37.0-47.0) 33.2 % (37.0-47.0) Mean Corpuscular Volume 88 FL (80-99) 88 FL (80-99) Mean Corpuscular Hemoglobin 28.8 PG (27.0-31.0) 28.7 PG (27.0-31.0) Mean Corpuscular Hemoglobin Concent 32.6 G/DL (32.0-36.0) 32.5 G/DL (32.0-36.0) Red Cell Distribution Width 15.0 % (11.6-14.8) 15.0 % (11.6-14.8) Platelet Count 253 K/UL (150-450) 261 K/UL (150-450) Mean Platelet Volume 5.7 FL (6.5-10.1) 6.3 FL (6.5-10.1) Neutrophils (%) (Auto) 62.9 % (45.0-75.0) 49.7 % (45.0-75.0) Lymphocytes (%) (Auto) 25.5 % (20.0-45.0) 35.1 % (20.0-45.0) Monocytes (%) (Auto) 7.4 % (1.0-10.0) 9.5 % (1.0-10.0) Eosinophils (%) (Auto) 3.0 % (0.0-3.0) 4.3 % (0.0-3.0) Basophils (%) (Auto) 1.2 % (0.0-2.0) 1.4 % (0.0-2.0) Sodium Level 129 MMOL/L (136-145) 129 MMOL/L (136-145) Potassium Level 4.4 MMOL/L (3.5-5.1) 4.1 MMOL/L (3.5-5.1) Chloride Level 98 MMOL/L (98-107) 98 MMOL/L (98-107) Carbon Dioxide Level 23 MMOL/L (21-32) 22 MMOL/L (21-32) Anion Gap 8 mmol/L (5-15) 9 mmol/L (5-15) Blood Urea Nitrogen 8 mg/dL (7-18) 7 mg/dL (7-18) Creatinine 0.7 MG/DL (0.55-1.30) 0.7 MG/DL (0.55-1.30) Estimat Glomerular Filtration Rate mL/min (>60) mL/min (>60) Glucose Level 83 MG/DL (74-106) 77 MG/DL (74-106) Osmolality 276 mOsm/kg (297-317) Uric Acid 3.0 MG/DL (2.6-7.2) Calcium Level 9.1 MG/DL (8.5-10.1) 9.1 MG/DL (8.5-10.1) Phosphorus Level 3.8 MG/DL (2.5-4.9) Magnesium Level 1.8 MG/DL (1.8-2.4) Total Bilirubin 0.3 MG/DL (0.2-1.0) Direct Bilirubin 0.1 MG/DL (0.0-0.3) Aspartate Amino Transf (AST/SGOT) 24 U/L (15-37) Alanine Aminotransferase (ALT/SGPT) 9 U/L (12-78) Alkaline Phosphatase 114 U/L (46-116) C-Reactive Protein, Quantitative < 0.4 mg/dL (0.00-0.90) Pro-B-Type Natriuretic Peptide 325 pg/mL (0-125) Total Protein 6.6 G/DL (6.4-8.2) Albumin 3.1 G/DL (3.4-5.0) Globulin 3.5 g/dL Albumin/Globulin Ratio 0.9 (1.0-2.7) Triglycerides Level 98 MG/DL (30-150) Cholesterol Level 184 MG/DL (< 200) LDL Cholesterol 120 mg/dL (<100) HDL Cholesterol 48 MG/DL (40-60) Cholesterol/HDL Ratio 3.8 (3.3-4.4) Lipase 202 U/L (73-393) Height (Feet): 5 Height (Inches): 0.00 Weight (Pounds): 111 Objective Physical Exam: Vitals: reviewed General Appearance: NAD HEENT: normocephalic, atraumatic Neck: non-tender, normal alignment Respiratory/Chest: normal breath sounds bilaterally Cardiovascular/Chest: normal peripheral pulses, normal rate Abdomen: normal bowel sounds, soft, nontender Extremities: normal rom + left lower ext 1+ edema Tomy Saba MD Aug 22, 2019 09:49
[2019-08-22] MEDS: Docusate 100mg cap ORAL SCH ×3 (10:17→18:00)
[2019-08-22] MEDS: Lisinopril 20mg tab ORAL SCH (10:17)
[2019-08-22] MEDS: Enoxaparin 30mg Inj SUBQ SCH (10:18)
[2019-08-22 12:00] VITALS: BP 142/73
--- NOTE | 2019-08-22 12:24 | General Progress Note ---
Assessment/Plan Problem List: (1) Abdominal pain ICD Codes: R10.9 - Unspecified abdominal pain SNOMED: 54850899 (2) Lung nodule ICD Codes: R91.1 - Solitary pulmonary nodule SNOMED: 058264189 (3) Constipation ICD Codes: K59.00 - Constipation, unspecified SNOMED: 61799649 (4) Hypertension ICD Codes: I10 - Essential (primary) hypertension SNOMED: 03344052 (5) Diverticulosis ICD Codes: K57.90 - Diverticulosis of intestine, part unspecified, without perforation or abscess without bleeding SNOMED: 789982606 Status: progressing Assessment/Plan: abdominal pain per gi patient doesnt have any gi issues obs abdomen is soft vaginal pain .consulted toolroom clerk constipation improved reviewed chart and labs Subjective Gastrointestinal/Abdominal: Reports: abdominal pain Allergies: Coded Allergies: PENICILLINS (Unverified Allergy, Unknown, 08/05/19) Objective Last 24 Hour Vital Signs Date Time Temp Pulse Resp B/P (MAP) Pulse Ox O2 Delivery O2 Flow Rate FiO2 08/22/19 10:17 142/73 08/22/19 09:57 60 20 99 Room Air 21 08/22/19 09:00 Room Air 08/22/19 08:00 97.7 58 20 142/73 (96) 94 08/22/19 04:00 97.5 72 16 140/55 (83) 98 08/22/19 00:00 97.5 52 16 163/66 (98) 98 08/21/19 21:00 Room Air 08/21/19 20:00 97.7 60 16 158/61 (93) 99 08/21/19 19:25 63 18 98 Room Air 21 08/21/19 18:15 97.2 08/21/19 16:00 97.2 53 20 106/67 (80) 99 Intake and Output 08/21/19 08/22/19 18:59 06:59 Intake Total 490 ml 690 ml Output Total 600 ml Balance 490 ml 90 ml Intake Oral 240 ml 240 ml IV Total 250 ml 450 ml Output Urine Total 600 ml # Voids 4 3 Laboratory Tests 08/22/19 05:10: White Blood Count 4.2L, Red Blood Count 3.77L, Hemoglobin 10.8L, Hematocrit 33.2L, Mean Corpuscular Volume 88, Mean Corpuscular Hemoglobin 28.7, Mean Corpuscular Hemoglobin Concent 32.5, Red Cell Distribution Width 15.0H, Platelet Count 261, Mean Platelet Volume 6.3L, Neutrophils (%) (Auto) 49.7, Lymphocytes (%) (Auto) 35.1, Monocytes (%) (Auto) 9.5, Eosinophils (%) (Auto) 4.3H, Basophils (%) (Auto) 1.4, Sodium Level 129L, Potassium Level 4.1, Chloride Level 98, Carbon Dioxide Level 22, Anion Gap 9, Blood Urea Nitrogen 7, Creatinine 0.7, Estimat Glomerular Filtration Rate , Glucose Level 77, Calcium Level 9.1 Height (Feet): 5 Height (Inches): 0.00 Weight (Pounds): 111 Respiratory/Chest: lungs clear Abdomen: soft Becca Lewis MD Aug 22, 2019 12:24
--- NOTE | 2019-08-22 12:57 | NUR ---
DRIVER SUPERVISORTECHNOLOGY ADVISOR SI: ABDOMINAL PAIN,CONSTIPATION T. 97.5 HR 52 RR 20 B/P 142/73 IS: IVF NS @ 50ML/HR LOVENOX SUBC MONISTAT TOP MED/SURG STATUS
[2019-08-22] MEDS ORDERED: Fleet's Enema 133ml RECTAL SCH ×2 (13:15→14:00)
--- NOTE | 2019-08-22 13:30 | NUR ---
NURSE NOTES: Dr Lewis cleared pt . MD called gave orders for discharge if cleared by Dr Salamanca . Order as follows: Discharge pt home d/c hospital meds , continue home meds. Follow up with hematology and pulmonology Informed and primary physician in one week. Dr Jimenez gave instructions to call Cheikh for orders for constipation. Per pt has not had a bm in 5 days
--- NOTE | 2019-08-22 13:54 | Consultation ---
Consult Note Consult Note GYNECOLOGY CONSULTATION REPORT CC: Vaginal discomfort HPI: Patient is an 89yo P4 who was admitted for severe constipation and abdominal pain. PASS WORKER was consulted for vaginal/pelvic pain, however the patient is only endorsing vaginal discomfort at this time which is resolving s/p treatment with Monistat. She denies any vaginal discharge or bleeding. She desires to go home. She is being followed by GI and Surgery and will likely be discharged home once she has a successful bowel movement. No nausea/vomiting, no fever or chills, no chest pain or shortness of breath. ROS: Patient denies any other symptoms at this time, all pertinent positives and negatives listed in HPI. PMH: Constipation, diverticulosis, fatty liver, hemorrhoids PSH: Bladder tumor removal, exploratory laparotomy, hemorrhoid surgery. Meds: Takes pain medications and stool softeners (per chart review) Allergies: PCN OBHx: 4 children total, 2 are living GYNHx: No postmenopausal bleeding, no recent PASS WORKER visits SocHx: Lives with daughter FamHx: Non-contributory Vitals: BP 142/73, P 60, Tlast 97.7F, RR 20, O2 99% RA Exam: Gen: NAD HEENT: No dentition, MMM, OP clear CV: No tachycardia Pulm: Equal chest rise b/l, no difficulty breathing Abd: Soft, NT, bladder feels somewhat distended but patient reports urge to void Pelvic: NEFG, no masses or lesions. No abnl discharge. No erythema or odor. Internal exam revealed significant atrophy, cervix small/atrophic, no adnexal masses appreciated. Significant stool in rectum. Ext: FROM, no calf TTP Labs: Test 08/22/19 05:10 White Blood Count 4.2 K/UL (4.8-10.8) L Red Blood Count 3.77 M/UL (4.20-5.40) L Hemoglobin 10.8 G/DL (12.0-16.0) L Hematocrit 33.2 % (37.0-47.0) L Mean Corpuscular Volume 88 FL (80-99) Mean Corpuscular Hemoglobin 28.7 PG (27.0-31.0) Mean Corpuscular Hemoglobin Concent 32.5 G/DL (32.0-36.0) Red Cell Distribution Width 15.0 % (11.6-14.8) H Platelet Count 261 K/UL (150-450) Mean Platelet Volume 6.3 FL (6.5-10.1) L Neutrophils (%) (Auto) 49.7 % (45.0-75.0) Lymphocytes (%) (Auto) 35.1 % (20.0-45.0) Monocytes (%) (Auto) 9.5 % (1.0-10.0) Eosinophils (%) (Auto) 4.3 % (0.0-3.0) H Basophils (%) (Auto) 1.4 % (0.0-2.0) Sodium Level 129 MMOL/L (136-145) L Potassium Level 4.1 MMOL/L (3.5-5.1) Chloride Level 98 MMOL/L (98-107) Carbon Dioxide Level 22 MMOL/L (21-32) Anion Gap 9 mmol/L (5-15) Blood Urea Nitrogen 7 mg/dL (7-18) Creatinine 0.7 MG/DL (0.55-1.30) Estimat Glomerular Filtration Rate mL/min (>60) Glucose Level 77 MG/DL (74-106) Calcium Level 9.1 MG/DL (8.5-10.1) Imaging: Findings: Breathing motion significantly limits evaluation. There is a faintly visualized approximately 6 mm lung nodule just above the right hemidiaphragm. This was seen previously as well. There is basal atelectasis versus scarring that is mild. There is moderate calcification of the aorta and iliac arteries. The liver is low attenuation consistent with fatty infiltration. Gallbladder is grossly unremarkable. Diverticula noted in the sigmoid colon. Bladder is mildly distended. Uterus is atrophic. The appendix appears normal. The IVC is not well enhanced on this examination which was obtained fairly early after injection, i.e. more or less arterial phase exam. Having said that, the left iliac vein and left common femoral vein appear less enhanced than the right common femoral vein. The finding was similar on the prior occasion. Suggest correlation with the duplex Doppler venous ultrasound to exclude presence of a left lower extremity DVT. There is narrowing of intervertebral discs and accompanying endplate osteophyte formation. Hypertrophied facet joints also demonstrated. IMPRESSION: - Possible left lower extremity DVT. Recommend ultrasound correlation. - No evidence of appendicitis - Fatty liver. - Atherosclerotic vascular disease. - Diverticulosis of the colon. No definite diverticulitis. - Limited evaluation due to breathing motion. - Pulmonary nodule at the right lung base. Consider 6 month follow-up CT chest per Fleischner Society criteria - Other incidental findings as above Assessment/Plan 89yo admitted for severe constipation and electrolyte abnormalities, presenting with vaginal discomfort which has resolved s/p Miconazole - Likely andie vaginitis, recommend continue Miconazole for 7 days total - No postmenopausal bleeding, no abnormal discharge, no erythema, no odor - No additional interventions indicated at this time - Cleared for discharge from PASS WORKER perspective Thank you for inviting me to participate in this patient's care. Signed: MD Sandra Edgar Carla M.D. Aug 22, 2019 13:54
--- NOTE | 2019-08-22 14:00 | NUR ---
NURSE NOTES: Dr Marin here gave clearance for pt to be discharged. Pt denied pain when Dr Marin came to assess. Dr informed her that pt said " Me duele la parte" Pt talking in stateless , informed that only her anus hurts, and that she needed pills to sleep. Per report pt has not had problems sleeping. Pt also takes daytime naps.
--- NOTE | 2019-08-22 14:30 | NUR ---
NURSE NOTES: Pt states she has not had a BM in 5 days, Dr Lewis phoned who gave me instructions to follow up with Cehikh gave orders for fleet enema and if not effective call him back
--- NOTE | 2019-08-22 15:30 | NUR ---
*-* INSURANCE *-* ALL AVAILABLE CLINICALS HAVE BEEN FAXED TO: [facility] TRACKING#[id number] NO THIN FILM TECHNICIAN ASSIGNED YET PH#[phone] FAX#[phone] REVIEWS/CLINICALS
[2019-08-22 16:00] VITALS: BP 163/89
--- NOTE | 2019-08-22 16:22 | General Progress Note ---
Assessment/Plan Status: progressing Assessment/Plan: Assessment - Vaginal discomfort - andie - constipation - diverticulosis - mild anemia - mild hyponatremia Recommendation - check stool OB - OK for d/c from GI standpoint - bowel regimen - po as tolerated - OUTPATIENT DIETITIAN follow up Subjective Allergies: Coded Allergies: PENICILLINS (Unverified Allergy, Unknown, 08/05/19) Subjective Above noted c/o vaginal burning OUTPATIENT DIETITIAN noted given fleet enema for constipation Objective Last 24 Hour Vital Signs Date Time Temp Pulse Resp B/P (MAP) Pulse Ox O2 Delivery O2 Flow Rate FiO2 08/22/19 10:17 142/73 08/22/19 09:57 60 20 99 Room Air 21 08/22/19 09:00 Room Air 08/22/19 08:00 97.7 58 20 142/73 (96) 94 08/22/19 04:00 97.5 72 16 140/55 (83) 98 08/22/19 00:00 97.5 52 16 163/66 (98) 98 08/21/19 21:00 Room Air 08/21/19 20:00 97.7 60 16 158/61 (93) 99 08/21/19 19:25 63 18 98 Room Air 21 08/21/19 18:15 97.2 Intake and Output 08/21/19 08/22/19 19:00 07:00 Intake Total 490 ml 690 ml Output Total 600 ml Balance 490 ml 90 ml Intake Oral 240 ml 240 ml IV Total 250 ml 450 ml Output Urine Total 600 ml # Voids 4 3 Laboratory Tests 08/22/19 05:10: White Blood Count 4.2L, Red Blood Count 3.77L, Hemoglobin 10.8L, Hematocrit 33.2L, Mean Corpuscular Volume 88, Mean Corpuscular Hemoglobin 28.7, Mean Corpuscular Hemoglobin Concent 32.5, Red Cell Distribution Width 15.0H, Platelet Count 261, Mean Platelet Volume 6.3L, Neutrophils (%) (Auto) 49.7, Lymphocytes (%) (Auto) 35.1, Monocytes (%) (Auto) 9.5, Eosinophils (%) (Auto) 4.3H, Basophils (%) (Auto) 1.4, Sodium Level 129L, Potassium Level 4.1, Chloride Level 98, Carbon Dioxide Level 22, Anion Gap 9, Blood Urea Nitrogen 7, Creatinine 0.7, Estimat Glomerular Filtration Rate , Glucose Level 77, Calcium Level 9.1 Height (Feet): 5 Height (Inches): 0.00 Weight (Pounds): 111 Objective Debilitated elderly woman NCAT supple CAT RRR abd soft ND NT, no mass no edema Izaiah Mendoza MD Aug 22, 2019 16:22
--- NOTE | 2019-08-22 16:54 | NUR ---
NURSE NOTES: Dr Salamanca phoned informed him that pt had not had a bm, and fleet enema was not effective. Informed him that pt attempted to have bm with difficultly pt straining. 2 small hard round fecal matter roughly the size of a marble. Gave orders for Sorbitol 60 cc one dose now. Gave orders to upgrade diet to cardiac diet to observe if pt can tolerate food. If food is tolerated she can be discharge. Chief Payroll Clerk clarified if was clearing her for discharge. Well update him with effectiveness of Sorbitol
--- NOTE | 2019-08-22 16:55 | Surgery Progress Note ---
Surgery Progress Note Subjective Symptoms: improved, tolerating diet, voiding well, passing flatus, pain decreased Objective Last 24 Hour Vital Signs Date Time Temp Pulse Resp B/P (MAP) Pulse Ox O2 Delivery O2 Flow Rate FiO2 08/22/19 10:17 142/73 08/22/19 09:57 60 20 99 Room Air 21 08/22/19 09:00 Room Air 08/22/19 08:00 97.7 58 20 142/73 (96) 94 08/22/19 04:00 97.5 72 16 140/55 (83) 98 08/22/19 00:00 97.5 52 16 163/66 (98) 98 08/21/19 21:00 Room Air 08/21/19 20:00 97.7 60 16 158/61 (93) 99 08/21/19 19:25 63 18 98 Room Air 21 08/21/19 18:15 97.2 I&O Intake and Output 08/21/19 08/22/19 19:00 07:00 Intake Total 490 ml 690 ml Output Total 600 ml Balance 490 ml 90 ml Intake Oral 240 ml 240 ml IV Total 250 ml 450 ml Output Urine Total 600 ml # Voids 4 3 Cardiovascular: RSR Respiratory: clear Abdomen: soft, flat, non-tender, present bowel sounds Extremities: no tenderness, no cyanosis Laboratory Tests Test 08/22/19 05:10 White Blood Count 4.2 K/UL (4.8-10.8) L Red Blood Count 3.77 M/UL (4.20-5.40) L Hemoglobin 10.8 G/DL (12.0-16.0) L Hematocrit 33.2 % (37.0-47.0) L Mean Corpuscular Volume 88 FL (80-99) Mean Corpuscular Hemoglobin 28.7 PG (27.0-31.0) Mean Corpuscular Hemoglobin Concent 32.5 G/DL (32.0-36.0) Red Cell Distribution Width 15.0 % (11.6-14.8) H Platelet Count 261 K/UL (150-450) Mean Platelet Volume 6.3 FL (6.5-10.1) L Neutrophils (%) (Auto) 49.7 % (45.0-75.0) Lymphocytes (%) (Auto) 35.1 % (20.0-45.0) Monocytes (%) (Auto) 9.5 % (1.0-10.0) Eosinophils (%) (Auto) 4.3 % (0.0-3.0) H Basophils (%) (Auto) 1.4 % (0.0-2.0) Sodium Level 129 MMOL/L (136-145) L Potassium Level 4.1 MMOL/L (3.5-5.1) Chloride Level 98 MMOL/L (98-107) Carbon Dioxide Level 22 MMOL/L (21-32) Anion Gap 9 mmol/L (5-15) Blood Urea Nitrogen 7 mg/dL (7-18) Creatinine 0.7 MG/DL (0.55-1.30) Estimat Glomerular Filtration Rate mL/min (>60) Glucose Level 77 MG/DL (74-106) Calcium Level 9.1 MG/DL (8.5-10.1) Plan Problems: (1) Abdominal pain Assessment & Plan: abdominal discomfort constipated CT noted no wbc exam fairly benign no n/v/f/c electrolytes abnormal no acute surgical intervention planned bowel regimen pelvic pain now/vaginal [employer] MAINTENANCE consult thank you will follow with recs (2) Diverticulosis Assessment & Plan: Findings: Breathing motion significantly limits evaluation. There is a faintly visualized approximately 6 mm lung nodule just above the right hemidiaphragm. This was seen previously as well. There is basal atelectasis versus scarring that is mild. There is moderate calcification of the aorta and iliac arteries. The liver is low attenuation consistent with fatty infiltration. Gallbladder is grossly unremarkable. Diverticula noted in the sigmoid colon. Bladder is mildly distended. Uterus is atrophic. The appendix appears normal. The IVC is not well enhanced on this examination which was obtained fairly early after injection, i.e. more or less arterial phase exam. Having said that, the left iliac vein and left common femoral vein appear less enhanced than the right common femoral vein. The finding was similar on the prior occasion. Suggest correlation with the duplex Doppler venous ultrasound to exclude presence of a left lower extremity DVT. There is narrowing of intervertebral discs and accompanying endplate osteophyte formation. Hypertrophied facet joints also demonstrated. IMPRESSION: Possible left lower extremity DVT. Recommend ultrasound correlation. No evidence of appendicitis Fatty liver. Atherosclerotic vascular disease. Diverticulosis of the colon. No definite diverticulitis. Limited evaluation due to breathing motion. Pulmonary nodule at the right lung base. Consider 6 month follow-up CT chest per Fleischner Society criteria (3) Constipation Assessment & Plan: bowel regimen Additional Comments d/c home discussed with STEEL WHEEL ENGRAVER Larry Blackman Aug 22, 2019 16:55
[2019-08-22] MEDS ORDERED: Sorbitol Solution UD 30ml ORAL SCH (17:00)
--- NOTE | 2019-08-22 18:47 | NUR ---
NURSE NOTES: Dr Jimenez phoned to inform him that grand daughter is here, and informed of orders, that if she tolerated her diet she is clear to be discharged, Grand-Daughter stated she wanted to make sure everything is okay with her before her discharge. Grand daughter had to encourage pt to take Sorbitol . Pt was yelling insisting that only oral laxative will work, yet when oral laxative was provided , pt did not want to take it. " I do not want to take anything else after this " R/B explained. Antibiotic given, no noted side effects at this time. Current plan will be followed
--- NOTE | 2019-08-22 19:30 | NUR ---
NURSE NOTES: Receive a report from ADARSH Ritchie. Round is done. Pt is asleep in bed. Granddaughter is next her. Will continue to monitor.
[2019-08-22 20:45] VITALS: BP 161/84
--- NOTE | 2019-08-22 21:30 | Consultation ---
DATE OF CONSULTATION: 08/22/2019 INFECTIOUS DISEASE CONSULTATION CONSULTING PHYSICIAN: Isai Pride M.D. PRIMARY ATTENDING PHYSICIAN: Becca Lewis M.D. REASON FOR CONSULT: UTI. HISTORY OF PRESENT ILLNESS: The patient is an 89-year-old female admitted on 08/19/2019 from home complaining of abdominal pain, constipation, and decrease in bowel movements. She had difficulty of passing urine for two days before admission and dysuria. The patient has recent history of admission to the hospital almost two weeks ago with abdominal pain and UTI. She was suspected to have appendicitis, although the CT scan was not so accurate. PAST MEDICAL HISTORY: Significant for hypertension, fatty liver, pulmonary nodule, anemia, hyponatremia, and arthritis. ALLERGIES: Allergic to penicillin. MEDICATIONS: Tylenol, enoxaparin, Vaginal miconazole, Colace, sodium chloride, albuterol and ipratropium, lisinopril, clonidine, and Zofran. SOCIAL HISTORY: Single. Lives at home. No history of alcohol, drug abuse, or smoking. REVIEW OF SYSTEMS: No fever. No chills. She has complaints of constipation, had dysuria last night. PHYSICAL EXAMINATION: VITAL SIGNS: Temperature 97.7, pulse 60, and blood pressure 142/73. GENERAL APPEARANCE: No acute distress. HEAD AND NECK: [place] conjunctivae. She has no teeth. HEART: Normal rate. LUNGS: Clear. ABDOMEN: Soft. EXTREMITIES: No edema. LABORATORY AND DIAGNOSTIC DATA: WBC 4.2, hemoglobin 10.8, hematocrit 33.2, and platelets 261,000. Sodium 129, potassium 4.1, chloride 98, bicarbonate 22, BUN 7, and creatinine 0.7. Glucose 77. Urine culture is growing Enterococcus sensitive to ampicillin, nitrofurantoin, and vancomycin. VRE and MRSA screen are negative. IMPRESSION: The patient is an 89-year-old female with dysuria and bacteriuria, urinary tract infection. Urine culture is growing Enterococcus. She has Gina vaginitis and has hyponatremia, constipation, diverticulosis without diverticulitis, pulmonary nodule, fatty liver, and anemia. RECOMMENDATION: Continue with nitrofurantoin for short time. At the end of my exam, I thank Dr. Lewis for involving me in the care of this patient. Isai Pride M.D. DR: ALBARO JOB#: [id number] CC: PORTILLO
[2019-08-22] MEDS: Miconazole Vag Cr 45gm Tube (100mg per applicator) VAGIN SCH (21:53)
--- NOTE | 2019-08-22 21:53 | Pulmonology Progress Note ---
Assessment/Plan Assessment/Plan Pulmonary Progress Note: HPI: Patient is an 89 year old woman with a history of Hypertension. Recent admission to this hospital 2 weeks ago complaining of abdominal pain and diagnosed with hyponatremia, admitted with constipation and difficulty passing urine for 2 days, abdominal distention has become significant over the past few days. Some nausea, no vomiting. Denies fevers, chills, cough, URI symptoms or other changes in her health otherwise. PMH: Hypertension, Cardiac disease, previous Appendicitis PSH: See chart Allergies: Penicillins No new complaints, abdominal symptoms improved On AB per ID for UTI Pulmonary nodules noted on CT Allergies: PENICILLINS All Other Systems: negative except mentioned in HPI Physical Exam Vital Signs Noted General: Awake and alert, no acute distress HEENT: NC/AT. EOMI. Cardiovascular: RRR. S1 and S2 normal. No murmur appreciated Resp: Normal work of breathing. No cough, wheezing or crackles appreciated Abdomen: Abdomen is soft, slightly distended but nontender. No rebound. No masses appreciated Skin: Intact. No abrasions, laceration or rash over the exposed skin MSK: Normal tone and bulk. Moving all extremities. No obvious deformity. Neuro: Awake and alert. Mentating appropriately. 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 Laboratory Tests Noted Test 08/19/19 15:30 White Blood Count 8.6 K/UL (4.8-10.8) Red Blood Count 4.02 M/UL (4.20-5.40) L Hemoglobin 11.8 G/DL (12.0-16.0) L Hematocrit 35.1 % (37.0-47.0) L Mean Corpuscular Volume 87 FL (80-99) Mean Corpuscular Hemoglobin 29.3 PG (27.0-31.0) Mean Corpuscular Hemoglobin Concent 33.5 G/DL (32.0-36.0) Red Cell Distribution Width 14.0 % (11.6-14.8) Platelet Count 295 K/UL (150-450) Mean Platelet Volume 6.5 FL (6.5-10.1) Neutrophils (%) (Auto) 70.0 % (45.0-75.0) Lymphocytes (%) (Auto) 19.2 % (20.0-45.0) L Monocytes (%) (Auto) 7.4 % (1.0-10.0) Eosinophils (%) (Auto) 2.5 % (0.0-3.0) Basophils (%) (Auto) 0.9 % (0.0-2.0) Urine Color Pale yellow Urine Appearance Clear Urine pH 6.5 (4.5-8.0) Urine Specific [place] 1.010 (1.005-1.035) Urine Protein Negative (NEGATIVE) Urine Glucose (UA) Negative (NEGATIVE) Urine Ketones Negative (NEGATIVE) Urine Blood Negative (NEGATIVE) Urine Nitrite Negative (NEGATIVE) Urine Bilirubin Negative (NEGATIVE) Urine Urobilinogen Normal MG/DL (0.0-1.0) Urine Leukocyte Esterase 1+ (NEGATIVE) H Urine RBC 0-2 /HPF (0 - 2) Urine WBC 2-4 /HPF (0 - 2) Urine Squamous Epithelial Cells Occasional /LPF Urine Bacteria Many /HPF (NONE) H Sodium Level 128 MMOL/L (136-145) L Potassium Level 4.8 MMOL/L (3.5-5.1) Chloride Level 95 MMOL/L (98-107) L Carbon Dioxide Level 25 MMOL/L (21-32) Anion Gap 8 mmol/L (5-15) Blood Urea Nitrogen 12 mg/dL (7-18) Creatinine 0.9 MG/DL (0.55-1.30) Estimate Glomerular Filtration Rate mL/min (>60) Glucose Level 103 MG/DL (74-106) Calcium Level 9.5 MG/DL (8.5-10.1) Total Bilirubin 0.2 MG/DL (0.2-1.0) Aspartate Amino Transferase (AST) 25 U/L (15-37) Alanine Aminotransferase (ALT) 11 U/L (12-78) L Alkaline Phosphatase 144 U/L (46-116) H C-Reactive Protein, Quantitative < 0.4 mg/dL (0.00-0.90) Total Protein 7.8 G/DL (6.4-8.2) Albumin 3.7 G/DL (3.4-5.0) Globulin 4.1 g/dL Albumin/Globulin Ratio 0.9 (1.0-2.7) L Lipase 275 U/L (73-393) CT Abdomen Pelvis : Findings: Breathing motion significantly limits evaluation. There is a faintly visualized approximately 6 mm lung nodule just above the right hemidiaphragm. This was seen previously as well. There is basal atelectasis versus scarring that is mild. There is moderate calcification of the aorta and iliac arteries. The liver is low attenuation consistent with fatty infiltration. Gallbladder is grossly unremarkable. Diverticula noted in the sigmoid colon. Bladder is mildly distended. Uterus is atrophic. The appendix appears normal. The IVC is not well enhanced on this examination which was obtained fairly early after injection, i.e. more or less arterial phase exam. Having said that, the left iliac vein and left common femoral vein appear less enhanced than the right common femoral vein. The finding was similar on the prior occasion. Suggest correlation with the duplex Doppler venous ultrasound to exclude presence of a left lower extremity DVT. There is narrowing of intervertebral discs and accompanying endplate osteophyte formation. Hypertrophied facet joints also demonstrated. IMPRESSION: Possible left lower extremity DVT. Recommend ultrasound correlation. No evidence of appendicitis Fatty liver. Atherosclerotic vascular disease. Diverticulosis of the colon. No definite diverticulitis. Limited evaluation due to breathing motion. Pulmonary nodule at the right lung base. LE Dupplex: No DVT CT Chest: 6 mm right basilar subpleural nodule. 7 mm left basilar semicircular opacity. Recommend short interval follow-up CT scan in 6-12 months for follow- up of both of these. No acute process otherwise Basilar atelectatic changes on the right. Bilateral apical scarring Evidence of prior median sternotomy Mild scoliosis and degenerative spondylosis Subjective Allergies: Coded Allergies: PENICILLINS (Unverified Allergy, Unknown, 08/05/19) Objective Last 24 Hour Vital Signs Date Time Temp Pulse Resp B/P (MAP) Pulse Ox O2 Delivery O2 Flow Rate FiO2 08/22/19 16:00 98.9 60 20 163/89 (113) 08/22/19 12:00 98.7 66 18 142/73 (96) 97 08/22/19 10:17 142/73 08/22/19 09:57 60 20 99 Room Air 21 08/22/19 09:00 Room Air 08/22/19 08:00 97.7 58 20 142/73 (96) 94 08/22/19 04:00 97.5 72 16 140/55 (83) 98 08/22/19 00:00 97.5 52 16 163/66 (98) 98 Intake and Output 08/21/19 08/22/19 19:00 07:00 Intake Total 490 ml 740 ml Output Total 600 ml Balance 490 ml 140 ml Intake Oral 240 ml 240 ml IV Total 250 ml 500 ml Output Urine Total 600 ml # Voids 4 3 Laboratory Tests 08/22/19 05:10: White Blood Count 4.2L, Red Blood Count 3.77L, Hemoglobin 10.8L, Hematocrit 33.2L, Mean Corpuscular Volume 88, Mean Corpuscular Hemoglobin 28.7, Mean Corpuscular Hemoglobin Concent 32.5, Red Cell Distribution Width 15.0H, Platelet Count 261, Mean Platelet Volume 6.3L, Neutrophils (%) (Auto) 49.7, Lymphocytes (%) (Auto) 35.1, Monocytes (%) (Auto) 9.5, Eosinophils (%) (Auto) 4.3H, Basophils (%) (Auto) 1.4, Sodium Level 129L, Potassium Level 4.1, Chloride Level 98, Carbon Dioxide Level 22, Anion Gap 9, Blood Urea Nitrogen 7, Creatinine 0.7, Estimat Glomerular Filtration Rate , Glucose Level 77, Calcium Level 9.1 Current Medications Medications (Trade) Dose Ordered Sig/Celeste Route PRN Reason Start Time Stop Time Status Last Admin Dose Admin Acetaminophen (Tylenol) 650 mg Q4H PRN ORAL Mild Pain/Temp > 100.5 08/21/19 10:45 09/20/19 10:44 08/22/19 06:50 Albuterol/ Ipratropium (Albuterol/ Ipratropium) 3 ml Q6HRT PRN HHN Shortness of Breath 08/20/19 12:00 08/25/19 11:59 Clonidine HCl (Catapres Tab) 0.1 mg Q6HR PRN ORAL For High Blood Pressure 08/19/19 22:00 09/18/19 21:59 08/21/19 04:33 Docusate Sodium (Colace) 100 mg TID ORAL 08/20/19 18:00 09/19/19 08:59 08/22/19 14:12 Enoxaparin Sodium (Lovenox) 30 mg DAILY SUBQ 08/21/19 09:00 09/20/19 08:59 08/22/19 10:18 Lisinopril (Prinivil) 20 mg DAILY ORAL 08/20/19 09:00 09/19/19 08:59 08/22/19 10:17 Miconazole Nitrate (Monistat) 1 applic QHS VAGIN 08/20/19 22:30 09/19/19 22:29 08/21/19 21:45 Nitrofurantoin (Macrobid) 100 mg EVERY 12 HOURS ORAL 08/22/19 16:00 09/21/19 15:59 08/22/19 17:40 Ondansetron HCl (Zofran) 4 mg Q6H PRN IVP Nausea & Vomiting 08/19/19 22:00 09/18/19 21:59 08/20/19 04:25 Sodium Chloride 1,000 ml @ 50 mls/hr Q20H IV 08/20/19 15:30 09/19/19 15:29 08/22/19 05:25 Carlito Perla MD Aug 22, 2019 21:53
--- NOTE | 2019-08-22 22:00 | NUR ---
NURSE NOTES: Pt is awake and [place]i speaking. Sitting on comodo next bed and has hard stools and watery bowel movement x 4. Provide perineal care. Call light within reach. Will continue to monitor.
[2019-08-23 00:55] VITALS: BP 135/86
--- NOTE | 2019-08-23 01:15 | NUR ---
HAND-OFF: Report given to ADARSH Archer. Round is done. Pt is asleep. Will continue to follow up.
--- NOTE | 2019-08-23 01:36 | NUR ---
NURSE NOTES: Received report from ADARSH Pollock. Received pt in bed asleep, easily arousable by verbal stimuli, AOx4, Sami speaking only, able to make needs known without difficulty. IV L AC patent and intact. IV fluid infusing as ordered. Bed in lowest position and locked, side rails up x 2, call light within reach. Will continue to monitor.
[2019-08-23 05:30] VITALS: BP 152/87
[2019-08-23 06:03] LABS: BASOPHILS % (AUTO) 1.6 % (0.0-2.0); HEMATOCRIT 38.1 % (37.0-47.0); HEMOGLOBIN 12.5 G/DL (12.0-16.0); LYMPHOCYTES % (AUTO) 26.5 % (20.0-45.0); MEAN CORPUSCULAR VOLUME 88 FL (80-99); MONOCYTES % (AUTO) 8.2 % (1.0-10.0); NEUTROPHILS % (AUTO) 61.7 % (45.0-75.0); PLATELET COUNT 222 K/UL (150-450); RED BLOOD COUNT 4.33 M/UL (4.20-5.40); RED CELL DISTRIBUTION WIDTH 15.3 % (11.6-14.8)
[2019-08-23 06:10] LABS: ANION GAP 9 mmol/L (5-15); BLOOD UREA NITROGEN 4 mg/dL (7-18); CALCIUM 9.4 MG/DL (8.5-10.1); CARBON DIOXIDE 24 MMOL/L (21-32); CHLORIDE 99 MMOL/L (98-107); CREATININE 0.7 MG/DL (0.55-1.30); POTASSIUM 3.8 MMOL/L (3.5-5.1); SODIUM 132 MMOL/L (136-145)
--- NOTE | 2019-08-23 07:30 | NUR ---
NURSE NOTES: Patient is in bed awake and able to verbalize needs. Stable. Denies pain or SOB at this time. Patient encouraged to use call light for assistance, verbalized understanding. Patient is in bed in locked and lowest position with call light within reach. Will continue to monitor.
--- NOTE | 2019-08-23 07:32 | NUR ---
HAND-OFF: Report given to ADARSH Horan. Pt in stable condition.
[2019-08-23 08:00] VITALS: BP 181/86
[2019-08-23] MEDS: Docusate 100mg cap ORAL SCH ×3 (08:27→17:47)
[2019-08-23] MEDS: Enoxaparin 30mg Inj SUBQ SCH (08:27)
[2019-08-23] MEDS: Lisinopril 20mg tab ORAL SCH (08:28)
--- NOTE | 2019-08-23 08:30 | NUR ---
NURSE NOTES: Patient has decreased appetite at this time. No c/o abdominal pain or discomfort after eating regular diet. Will continue to monitor.
--- NOTE | 2019-08-23 09:30 | NUR ---
NURSE NOTES: Dr. Concepcion made aware of patient's bm, awaiting clearance for dc.
[2019-08-23 11:29] VITALS: BP 160/68
--- NOTE | 2019-08-23 12:33 | Surgery Progress Note ---
Surgery Progress Note Subjective Symptoms: improved, tolerating diet, voiding well, passing flatus, BM Objective Last 24 Hour Vital Signs Date Time Temp Pulse Resp B/P (MAP) Pulse Ox O2 Delivery O2 Flow Rate FiO2 08/23/19 11:29 98.8 65 18 160/68 (98) 99 08/23/19 09:00 Room Air 08/23/19 08:28 181/86 08/23/19 08:00 97.2 65 22 181/86 (117) 99 08/23/19 05:30 97.8 62 18 152/87 (108) 99 08/23/19 00:55 98.2 84 18 135/86 (102) 97 08/22/19 21:00 Room Air 08/22/19 20:45 98.2 60 18 161/84 (109) 97 71 08/22/19 18:58 51 20 96 Room Air 21 08/22/19 16:00 98.9 60 20 163/89 (113) I&O Intake and Output 08/22/19 08/23/19 18:59 06:59 Intake Total 600 ml 300 ml Balance 600 ml 300 ml Intake Oral 50 ml IV Total 600 ml 250 ml # Voids 5 3 # Bowel Movements 2 5 Cardiovascular: RSR Respiratory: clear Abdomen: soft, flat, non-tender, present bowel sounds Extremities: no edema, no tenderness, no cyanosis Laboratory Tests Test 08/23/19 05:20 White Blood Count 7.0 K/UL (4.8-10.8) # Red Blood Count 4.33 M/UL (4.20-5.40) Hemoglobin 12.5 G/DL (12.0-16.0) Hematocrit 38.1 % (37.0-47.0) Mean Corpuscular Volume 88 FL (80-99) Mean Corpuscular Hemoglobin 28.8 PG (27.0-31.0) Mean Corpuscular Hemoglobin Concent 32.6 G/DL (32.0-36.0) Red Cell Distribution Width 15.3 % (11.6-14.8) H Platelet Count 222 K/UL (150-450) Mean Platelet Volume 6.3 FL (6.5-10.1) L Neutrophils (%) (Auto) 61.7 % (45.0-75.0) Lymphocytes (%) (Auto) 26.5 % (20.0-45.0) Monocytes (%) (Auto) 8.2 % (1.0-10.0) Eosinophils (%) (Auto) 2.0 % (0.0-3.0) Basophils (%) (Auto) 1.6 % (0.0-2.0) Sodium Level 132 MMOL/L (136-145) L Potassium Level 3.8 MMOL/L (3.5-5.1) Chloride Level 99 MMOL/L (98-107) Carbon Dioxide Level 24 MMOL/L (21-32) Anion Gap 9 mmol/L (5-15) Blood Urea Nitrogen 4 mg/dL (7-18) L Creatinine 0.7 MG/DL (0.55-1.30) Estimat Glomerular Filtration Rate mL/min (>60) Glucose Level 83 MG/DL (74-106) Calcium Level 9.4 MG/DL (8.5-10.1) Plan Problems: (1) Abdominal pain Assessment & Plan: abdominal discomfort constipated CT noted no wbc exam fairly benign no n/v/f/c electrolytes abnormal no acute surgical intervention planned bowel regimen pelvic 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 There is a faintly visualized approximately 6 mm lung nodule just above the right hemidiaphragm. This was seen previously as well. There is basal atelectasis versus scarring that is mild. There is moderate calcification of the aorta and iliac arteries. The liver is low attenuation consistent with fatty infiltration. Gallbladder is grossly unremarkable. Diverticula noted in the sigmoid colon. Bladder is mildly distended. Uterus is atrophic. The appendix appears normal. The IVC is not well enhanced on this examination which was obtained fairly early after injection, i.e. more or less arterial phase exam. Having said that, the left iliac vein and left common femoral vein appear less enhanced than the right common femoral vein. The finding was similar on the prior occasion. Suggest correlation with the duplex Doppler venous ultrasound to exclude presence of a left lower extremity DVT. There is narrowing of intervertebral discs and accompanying endplate osteophyte formation. Hypertrophied facet joints also demonstrated. IMPRESSION: Possible left lower extremity DVT. Recommend ultrasound correlation. No evidence of appendicitis Fatty liver. Atherosclerotic vascular disease. Diverticulosis of the colon. No definite diverticulitis. Limited evaluation due to breathing motion. Pulmonary nodule at the right lung base. Consider 6 month follow-up CT chest per Fleischner Society criteria (3) Constipation Assessment & Plan: bowel regimen Additional Comments d/c planning Larry Blackman Aug 23, 2019 12:33
--- NOTE | 2019-08-23 13:17 | General Progress Note ---
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 Subjective ROS Limited/Unobtainable: Yes Allergies: Coded Allergies: PENICILLINS (Unverified Allergy, Unknown, 08/05/19) Objective Last 24 Hour Vital Signs Date Time Temp Pulse Resp B/P (MAP) Pulse Ox O2 Delivery O2 Flow Rate FiO2 08/23/19 11:29 98.8 65 18 160/68 (98) 99 08/23/19 09:00 Room Air 08/23/19 08:28 181/86 08/23/19 08:00 97.2 65 22 181/86 (117) 99 08/23/19 05:30 97.8 62 18 152/87 (108) 99 08/23/19 00:55 98.2 84 18 135/86 (102) 97 08/22/19 21:00 Room Air 08/22/19 20:45 98.2 60 18 161/84 (109) 97 71 08/22/19 18:58 51 20 96 Room Air 21 08/22/19 16:00 98.9 60 20 163/89 (113) Intake and Output 08/22/19 08/23/19 18:59 06:59 Intake Total 600 ml 300 ml Balance 600 ml 300 ml Intake Oral 50 ml IV Total 600 ml 250 ml # Voids 5 3 # Bowel Movements 2 5 Laboratory Tests 08/23/19 05:20: White Blood Count 7.0#, Red Blood Count 4.33, Hemoglobin 12.5, Hematocrit 38.1, Mean Corpuscular Volume 88, Mean Corpuscular Hemoglobin 28.8, Mean Corpuscular Hemoglobin Concent 32.6, Red Cell Distribution Width 15.3H, Platelet Count 222, Mean Platelet Volume 6.3L, Neutrophils (%) (Auto) 61.7, Lymphocytes (%) (Auto) 26.5, Monocytes (%) (Auto) 8.2, Eosinophils (%) (Auto) 2.0, Basophils (%) (Auto ) 1.6, Sodium Level 132L, Potassium Level 3.8, Chloride Level 99, Carbon Dioxide Level 24, Anion Gap 9, Blood Urea Nitrogen 4L, Creatinine 0.7, Estimat Glomerular Filtration Rate , Glucose Level 83, Calcium Level 9.4 Height (Feet): 5 Height (Inches): 0.00 Weight (Pounds): 111 General Appearance: alert EENT: normal ENT inspection Neck: supple Cardiovascular: normal rate Respiratory/Chest: decreased breath sounds Abdomen: soft, hypoactive bowel sounds Extremities: non-tender Jourdan Concepcion MD Aug 23, 2019 13:17
--- NOTE | 2019-08-23 13:49 | Infectious Diseases Prog Note ---
Assessment/Plan Assessment/Plan IMPRESSION: Urinary tract infection with Enterococcus. Sh Gina vaginitis Hyponatremia, constipation, diverticulosis without diverticulitis, pulmonary nodule, fatty liver, anemia. RECOMMENDATION: Continue with nitrofurantoin for short time. Continue topical Miconazole Subjective ROS Limited/Unobtainable: Yes Constitutional: Denies: fever Gastrointestinal/Abdominal: Reports: other - left lower abdomina pain Allergies: Coded Allergies: PENICILLINS (Unverified Allergy, Unknown, 08/05/19) Objective Vital Signs Last 24 Hour Vital Signs Date Time Temp Pulse Resp B/P (MAP) Pulse Ox O2 Delivery O2 Flow Rate FiO2 08/23/19 11:29 98.8 65 18 160/68 (98) 99 08/23/19 09:00 Room Air 08/23/19 08:28 181/86 08/23/19 08:11 58 20 98 Room Air 21 08/23/19 08:00 97.2 65 22 181/86 (117) 99 08/23/19 05:30 97.8 62 18 152/87 (108) 99 08/23/19 00:55 98.2 84 18 135/86 (102) 97 08/22/19 21:00 Room Air 08/22/19 20:45 98.2 60 18 161/84 (109) 97 71 08/22/19 18:58 51 20 96 Room Air 21 08/22/19 16:00 98.9 60 20 163/89 (113) Height (Feet): 5 Height (Inches): 0.00 Weight (Pounds): 111 General Appearance: no acute distress HEENT: mucous membranes moist Respiratory/Chest: lungs clear Cardiovascular: normal rate Abdomen: soft, non tender Extremities: no edema Neurologic/Psychiatric: alert, responsive Laboratory Tests Test 08/23/19 05:20 White Blood Count 7.0 K/UL (4.8-10.8) # Red Blood Count 4.33 M/UL (4.20-5.40) Hemoglobin 12.5 G/DL (12.0-16.0) Hematocrit 38.1 % (37.0-47.0) Mean Corpuscular Volume 88 FL (80-99) Mean Corpuscular Hemoglobin 28.8 PG (27.0-31.0) Mean Corpuscular Hemoglobin Concent 32.6 G/DL (32.0-36.0) Red Cell Distribution Width 15.3 % (11.6-14.8) H Platelet Count 222 K/UL (150-450) Mean Platelet Volume 6.3 FL (6.5-10.1) L Neutrophils (%) (Auto) 61.7 % (45.0-75.0) Lymphocytes (%) (Auto) 26.5 % (20.0-45.0) Monocytes (%) (Auto) 8.2 % (1.0-10.0) Eosinophils (%) (Auto) 2.0 % (0.0-3.0) Basophils (%) (Auto) 1.6 % (0.0-2.0) Sodium Level 132 MMOL/L (136-145) L Potassium Level 3.8 MMOL/L (3.5-5.1) Chloride Level 99 MMOL/L (98-107) Carbon Dioxide Level 24 MMOL/L (21-32) Anion Gap 9 mmol/L (5-15) Blood Urea Nitrogen 4 mg/dL (7-18) L Creatinine 0.7 MG/DL (0.55-1.30) Estimat Glomerular Filtration Rate mL/min (>60) Glucose Level 83 MG/DL (74-106) Calcium Level 9.4 MG/DL (8.5-10.1) Current Medications Medications (Trade) Dose Ordered Sig/Celeste Route PRN Reason Start Time Stop Time Status Last Admin Dose Admin Acetaminophen (Tylenol) 650 mg Q4H PRN ORAL Mild Pain/Temp > 100.5 08/21/19 10:45 09/20/19 10:44 08/23/19 02:39 Albuterol/ Ipratropium (Albuterol/ Ipratropium) 3 ml Q6HRT PRN HHN Shortness of Breath 08/20/19 12:00 08/25/19 11:59 Clonidine HCl (Catapres Tab) 0.1 mg Q6HR PRN ORAL For High Blood Pressure 08/19/19 22:00 09/18/19 21:59 08/21/19 04:33 Docusate Sodium (Colace) 100 mg TID ORAL 08/20/19 18:00 09/19/19 08:59 08/23/19 12:15 Enoxaparin Sodium (Lovenox) 30 mg DAILY SUBQ 08/21/19 09:00 09/20/19 08:59 08/23/19 08:27 Lisinopril (Prinivil) 20 mg DAILY ORAL 08/20/19 09:00 09/19/19 08:59 08/23/19 08:28 Miconazole Nitrate (Monistat) 1 applic QHS VAGIN 08/20/19 22:30 09/19/19 22:29 08/22/19 21:53 Nitrofurantoin (Macrobid) 100 mg EVERY 12 HOURS ORAL 08/22/19 16:00 09/21/19 15:59 08/23/19 08:27 Ondansetron HCl (Zofran) 4 mg Q6H PRN IVP Nausea & Vomiting 08/19/19 22:00 09/18/19 21:59 08/23/19 12:15 Sodium Chloride 1,000 ml @ 50 mls/hr Q20H IV 08/20/19 15:30 09/19/19 15:29 08/23/19 01:49 Isai Pride MD Aug 23, 2019 13:49
[2019-08-23 16:00] VITALS: BP 146/63
--- NOTE | 2019-08-23 16:52 | Hematology/Onc Progress Note ---
Assessment/Plan Assessment/Plan Assessment and Recs: # Imaging artifact -- initially showed Left lower extremity DVT -- dw radiologist and duplex is negative --> hold off on anticoagulant --> No dvt noted on us duplex and ct reviewed again, is likely artifact --> Dw radiologist 08/20 # Pulmonary nodule in the right left lung --> on ct imaging was noted --> consider ct scan in 6months # Anemia of chronic disease, with hgb approx 8 --> hgb trend 11.5--> 11.4-->10.8-->12 --> hgb goal >7, transfuse prn --> no bleeding noted at this time --> stable for anticoag # Hyponatremia --> as per renal # Abdominal pain --> Diverticulosis --> as per gi eval/surg # Fatty liver # Dvt ppx with lovenox 30 sq Greatly appreciate consultation. Subjective Constitutional: Denies: no symptoms, chills, fever, malaise, weakness, other HEENT: Denies: no symptoms, eye pain, blurred vision, tearing, double vision, ear pain, ear discharge, nose pain, nose congestion, throat pain, throat swelling, mouth pain, mouth swelling, other Cardiovascular: Denies: no symptoms, chest pain, edema, irregular heart rate, lightheadedness, palpitations, syncope, other Respiratory: Denies: no symptoms, cough, shortness of breath, SOB with excertion, SOB at rest, sputum, wheezing, other Gastrointestinal/Abdominal: Denies: no symptoms, abdomen distended, abdominal pain, black stools, tarry stools, blood in stool, constipated, diarrhea, difficulty swallowing, nausea, poor appetite, poor fluid intake, rectal bleeding , vomiting, other Genitourinary: Denies: no symptoms, burning, discharge, frequency, flank pain, hematuria, incontinence, pain, urgency, other Neurologic/Psychiatric: Denies: no symptoms, anxiety, depressed, emotional problems, headache, numbness, paresthesia, pre-existing deficit, seizure, tingling, tremors, weakness, other Allergies: Coded Allergies: PENICILLINS (Unverified Allergy, Unknown, 08/05/19) Subjective 08/21: no events to report o/n, no bleeding or chills noted, reviewed imaging 08/22: resting in bed, no acute events, labs reviewed, afebrile 08.23: no events, no bleeding, labs reviewed, no major changes Objective Objective Current Medications Medications (Trade) Dose Ordered Sig/Celeste Route PRN Reason Start Time Stop Time Status Last Admin Dose Admin Acetaminophen (Tylenol) 650 mg Q4H PRN ORAL Mild Pain/Temp > 100.5 08/21/19 10:45 09/20/19 10:44 08/23/19 15:26 Albuterol/ Ipratropium (Albuterol/ Ipratropium) 3 ml Q6HRT PRN HHN Shortness of Breath 08/20/19 12:00 08/25/19 11:59 Clonidine HCl (Catapres Tab) 0.1 mg Q6HR PRN ORAL For High Blood Pressure 08/19/19 22:00 09/18/19 21:59 08/21/19 04:33 Docusate Sodium (Colace) 100 mg TID ORAL 08/20/19 18:00 09/19/19 08:59 08/23/19 12:15 Enoxaparin Sodium (Lovenox) 30 mg DAILY SUBQ 08/21/19 09:00 09/20/19 08:59 08/23/19 08:27 Lisinopril (Prinivil) 20 mg DAILY ORAL 08/20/19 09:00 09/19/19 08:59 08/23/19 08:28 Miconazole Nitrate (Monistat) 1 applic QHS VAGIN 08/20/19 22:30 09/19/19 22:29 08/22/19 21:53 Nitrofurantoin (Macrobid) 100 mg EVERY 12 HOURS ORAL 08/22/19 16:00 09/21/19 15:59 08/23/19 08:27 Ondansetron HCl (Zofran) 4 mg Q6H PRN IVP Nausea & Vomiting 08/19/19 22:00 09/18/19 21:59 08/23/19 12:15 Sodium Chloride 1,000 ml @ 50 mls/hr Q20H IV 08/20/19 15:30 09/19/19 15:29 08/23/19 01:49 Last 24 Hour Vital Signs Date Time Temp Pulse Resp B/P (MAP) Pulse Ox O2 Delivery O2 Flow Rate FiO2 08/23/19 11:29 98.8 65 18 160/68 (98) 99 08/23/19 09:00 Room Air 08/23/19 08:28 181/86 08/23/19 08:11 58 20 98 Room Air 21 08/23/19 08:00 97.2 65 22 181/86 (117) 99 08/23/19 05:30 97.8 62 18 152/87 (108) 99 08/23/19 00:55 98.2 84 18 135/86 (102) 97 08/22/19 21:00 Room Air 08/22/19 20:45 98.2 60 18 161/84 (109) 97 71 08/22/19 18:58 51 20 96 Room Air 21 08/22/19 16:00 98.9 60 20 163/89 (113) 08/22/19 12:00 98.7 66 18 142/73 (96) 97 08/22/19 10:17 142/73 08/22/19 09:57 60 20 99 Room Air 21 08/22/19 09:00 Room Air 08/22/19 08:00 97.7 58 20 142/73 (96) 94 08/22/19 04:00 97.5 72 16 140/55 (83) 98 08/22/19 00:00 97.5 52 16 163/66 (98) 98 08/21/19 21:00 Room Air 08/21/19 20:00 97.7 60 16 158/61 (93) 99 08/21/19 19:25 63 18 98 Room Air 21 08/21/19 18:15 97.2 Intake and Output 08/22/19 08/23/19 18:59 06:59 Intake Total 600 ml 300 ml Balance 600 ml 300 ml Intake Oral 50 ml IV Total 600 ml 250 ml # Voids 5 3 # Bowel Movements 2 5 Labs Test 08/21/19 03:00 08/21/19 05:25 08/22/19 05:10 08/23/19 05:20 Urine Osmolality 228 mOsm/kg (429-449) Urine Random Sodium 62 mmol/L (20-110) White Blood Count 5.8 K/UL (4.8-10.8) 4.2 K/UL (4.8-10.8) 7.0 K/UL (4.8-10.8) Red Blood Count 3.72 M/UL (4.20-5.40) 3.77 M/UL (4.20-5.40) 4.33 M/UL (4.20-5.40) Hemoglobin 10.7 G/DL (12.0-16.0) 10.8 G/DL (12.0-16.0) 12.5 G/DL (12.0-16.0) Hematocrit 32.8 % (37.0-47.0) 33.2 % (37.0-47.0) 38.1 % (37.0-47.0) Mean Corpuscular Volume 88 FL (80-99) 88 FL (80-99) 88 FL (80-99) Mean Corpuscular Hemoglobin 28.8 PG (27.0-31.0) 28.7 PG (27.0-31.0) 28.8 PG (27.0-31.0) Mean Corpuscular Hemoglobin Concent 32.6 G/DL (32.0-36.0) 32.5 G/DL (32.0-36.0) 32.6 G/DL (32.0-36.0) Red Cell Distribution Width 15.0 % (11.6-14.8) 15.0 % (11.6-14.8) 15.3 % (11.6-14.8) Platelet Count 253 K/UL (150-450) 261 K/UL (150-450) 222 K/UL (150-450) Mean Platelet Volume 5.7 FL (6.5-10.1) 6.3 FL (6.5-10.1) 6.3 FL (6.5-10.1) Neutrophils (%) (Auto) 62.9 % (45.0-75.0) 49.7 % (45.0-75.0) 61.7 % (45.0-75.0) Lymphocytes (%) (Auto) 25.5 % (20.0-45.0) 35.1 % (20.0-45.0) 26.5 % (20.0-45.0) Monocytes (%) (Auto) 7.4 % (1.0-10.0) 9.5 % (1.0-10.0) 8.2 % (1.0-10.0) Eosinophils (%) (Auto) 3.0 % (0.0-3.0) 4.3 % (0.0-3.0) 2.0 % (0.0-3.0) Basophils (%) (Auto) 1.2 % (0.0-2.0) 1.4 % (0.0-2.0) 1.6 % (0.0-2.0) Sodium Level 129 MMOL/L (136-145) 129 MMOL/L (136-145) 132 MMOL/L (136-145) Potassium Level 4.4 MMOL/L (3.5-5.1) 4.1 MMOL/L (3.5-5.1) 3.8 MMOL/L (3.5-5.1) Chloride Level 98 MMOL/L (98-107) 98 MMOL/L (98-107) 99 MMOL/L (98-107) Carbon Dioxide Level 23 MMOL/L (21-32) 22 MMOL/L (21-32) 24 MMOL/L (21-32) Anion Gap 8 mmol/L (5-15) 9 mmol/L (5-15) 9 mmol/L (5-15) Blood Urea Nitrogen 8 mg/dL (7-18) 7 mg/dL (7-18) 4 mg/dL (7-18) Creatinine 0.7 MG/DL (0.55-1.30) 0.7 MG/DL (0.55-1.30) 0.7 MG/DL (0.55-1.30) Estimat Glomerular Filtration Rate mL/min (>60) mL/min (>60) mL/min (>60) Glucose Level 83 MG/DL (74-106) 77 MG/DL (74-106) 83 MG/DL (74-106) Osmolality 276 mOsm/kg (297-317) Uric Acid 3.0 MG/DL (2.6-7.2) Calcium Level 9.1 MG/DL (8.5-10.1) 9.1 MG/DL (8.5-10.1) 9.4 MG/DL (8.5-10.1) Phosphorus Level 3.8 MG/DL (2.5-4.9) Magnesium Level 1.8 MG/DL (1.8-2.4) Total Bilirubin 0.3 MG/DL (0.2-1.0) Direct Bilirubin 0.1 MG/DL (0.0-0.3) Aspartate Amino Transf (AST/SGOT) 24 U/L (15-37) Alanine Aminotransferase (ALT/SGPT) 9 U/L (12-78) Alkaline Phosphatase 114 U/L (46-116) C-Reactive Protein, Quantitative < 0.4 mg/dL (0.00-0.90) Pro-B-Type Natriuretic Peptide 325 pg/mL (0-125) Total Protein 6.6 G/DL (6.4-8.2) Albumin 3.1 G/DL (3.4-5.0) Globulin 3.5 g/dL Albumin/Globulin Ratio 0.9 (1.0-2.7) Triglycerides Level 98 MG/DL (30-150) Cholesterol Level 184 MG/DL (< 200) LDL Cholesterol 120 mg/dL (<100) HDL Cholesterol 48 MG/DL (40-60) Cholesterol/HDL Ratio 3.8 (3.3-4.4) Lipase 202 U/L (73-393) Height (Feet): 5 Height (Inches): 0.00 Weight (Pounds): 111 Objective Physical Exam: Vitals: reviewed General Appearance: NAD HEENT: normocephalic, atraumatic Neck: non-tender, normal alignment Respiratory/Chest: normal breath sounds bilaterally Cardiovascular/Chest: normal peripheral pulses, normal rate Abdomen: normal bowel sounds, soft, nontender Extremities: normal rom + left lower ext 1+ edema Tomy Saba MD Aug 23, 2019 16:52
--- NOTE | 2019-08-23 17:18 | NUR ---
NURSE NOTES: Still awaiting GI clearance for discharge.
--- NOTE | 2019-08-23 17:37 | Pulmonology Progress Note ---
Assessment/Plan Assessment/Plan Pulmonary Progress Note: HPI: Patient is an 89 year old woman with a history of Hypertension. Recent admission to this hospital 2 weeks ago complaining of abdominal pain and diagnosed with hyponatremia, admitted with constipation and difficulty passing urine for 2 days, abdominal distention has become significant over the past few days. Some nausea, no vomiting. Denies fevers, chills, cough, URI symptoms or other changes in her health otherwise. PMH: Hypertension, Cardiac disease, previous Appendicitis PSH: See chart Allergies: Penicillins No new complaints, abdominal symptoms improved On AB per ID for UTI Pulmonary nodules noted on CT Allergies: PENICILLINS All Other Systems: negative except mentioned in HPI Physical Exam Vital Signs Noted General: Awake and alert, no acute distress HEENT: NC/AT. EOMI. Cardiovascular: RRR. S1 and S2 normal. No murmur appreciated Resp: Normal work of breathing. No cough, wheezing or crackles appreciated Abdomen: Abdomen is soft, slightly distended but nontender. No rebound. No masses appreciated Skin: Intact. No abrasions, laceration or rash over the exposed skin MSK: Normal tone and bulk. Moving all extremities. No obvious deformity. Neuro: Awake and alert. Mentating appropriately. 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 PPX CYBER ANALYST meds Monitor labs Laboratory Tests Noted Test 08/19/19 15:30 White Blood Count 8.6 K/UL (4.8-10.8) Red Blood Count 4.02 M/UL (4.20-5.40) L Hemoglobin 11.8 G/DL (12.0-16.0) L Hematocrit 35.1 % (37.0-47.0) L Mean Corpuscular Volume 87 FL (80-99) Mean Corpuscular Hemoglobin 29.3 PG (27.0-31.0) Mean Corpuscular Hemoglobin Concent 33.5 G/DL (32.0-36.0) Red Cell Distribution Width 14.0 % (11.6-14.8) Platelet Count 295 K/UL (150-450) Mean Platelet Volume 6.5 FL (6.5-10.1) Neutrophils (%) (Auto) 70.0 % (45.0-75.0) Lymphocytes (%) (Auto) 19.2 % (20.0-45.0) L Monocytes (%) (Auto) 7.4 % (1.0-10.0) Eosinophils (%) (Auto) 2.5 % (0.0-3.0) Basophils (%) (Auto) 0.9 % (0.0-2.0) Urine Color Pale yellow Urine Appearance Clear Urine pH 6.5 (4.5-8.0) Urine Specific [place] 1.010 (1.005-1.035) Urine Protein Negative (NEGATIVE) Urine Glucose (UA) Negative (NEGATIVE) Urine Ketones Negative (NEGATIVE) Urine Blood Negative (NEGATIVE) Urine Nitrite Negative (NEGATIVE) Urine Bilirubin Negative (NEGATIVE) Urine Urobilinogen Normal MG/DL (0.0-1.0) Urine Leukocyte Esterase 1+ (NEGATIVE) H Urine RBC 0-2 /HPF (0 - 2) Urine WBC 2-4 /HPF (0 - 2) Urine Squamous Epithelial Cells Occasional /LPF Urine Bacteria Many /HPF (NONE) H Sodium Level 128 MMOL/L (136-145) L Potassium Level 4.8 MMOL/L (3.5-5.1) Chloride Level 95 MMOL/L (98-107) L Carbon Dioxide Level 25 MMOL/L (21-32) Anion Gap 8 mmol/L (5-15) Blood Urea Nitrogen 12 mg/dL (7-18) Creatinine 0.9 MG/DL (0.55-1.30) Estimate Glomerular Filtration Rate mL/min (>60) Glucose Level 103 MG/DL (74-106) Calcium Level 9.5 MG/DL (8.5-10.1) Total Bilirubin 0.2 MG/DL (0.2-1.0) Aspartate Amino Transferase (AST) 25 U/L (15-37) Alanine Aminotransferase (ALT) 11 U/L (12-78) L Alkaline Phosphatase 144 U/L (46-116) H C-Reactive Protein, Quantitative < 0.4 mg/dL (0.00-0.90) Total Protein 7.8 G/DL (6.4-8.2) Albumin 3.7 G/DL (3.4-5.0) Globulin 4.1 g/dL Albumin/Globulin Ratio 0.9 (1.0-2.7) L Lipase 275 U/L (73-393) CT Abdomen Pelvis : Findings: Breathing motion significantly limits evaluation. There is a faintly visualized approximately 6 mm lung nodule just above the right hemidiaphragm. This was seen previously as well. There is basal atelectasis versus scarring that is mild. There is moderate calcification of the aorta and iliac arteries. The liver is low attenuation consistent with fatty infiltration. Gallbladder is grossly unremarkable. Diverticula noted in the sigmoid colon. Bladder is mildly distended. Uterus is atrophic. The appendix appears normal. The IVC is not well enhanced on this examination which was obtained fairly early after injection, i.e. more or less arterial phase exam. Having said that, the left iliac vein and left common femoral vein appear less enhanced than the right common femoral vein. The finding was similar on the prior occasion. Suggest correlation with the duplex Doppler venous ultrasound to exclude presence of a left lower extremity DVT. There is narrowing of intervertebral discs and accompanying endplate osteophyte formation. Hypertrophied facet joints also demonstrated. IMPRESSION: Possible left lower extremity DVT. Recommend ultrasound correlation. No evidence of appendicitis Fatty liver. Atherosclerotic vascular disease. Diverticulosis of the colon. No definite diverticulitis. Limited evaluation due to breathing motion. Pulmonary nodule at the right lung base. LE Dupplex: No DVT CT Chest: 6 mm right basilar subpleural nodule. 7 mm left basilar semicircular opacity. Recommend short interval follow-up CT scan in 6-12 months for follow- up of both of these. No acute process otherwise Basilar atelectatic changes on the right. Bilateral apical scarring Evidence of prior median sternotomy Mild scoliosis and degenerative spondylosis Subjective ROS Limited/Unobtainable: No Allergies: Coded Allergies: PENICILLINS (Unverified Allergy, Unknown, 08/05/19) Objective Last 24 Hour Vital Signs Date Time Temp Pulse Resp B/P (MAP) Pulse Ox O2 Delivery O2 Flow Rate FiO2 08/23/19 16:00 97.1 58 20 146/63 (90) 98 08/23/19 11:29 98.8 65 18 160/68 (98) 99 08/23/19 09:00 Room Air 08/23/19 08:28 181/86 08/23/19 08:11 58 20 98 Room Air 21 08/23/19 08:00 97.2 65 22 181/86 (117) 99 08/23/19 05:30 97.8 62 18 152/87 (108) 99 08/23/19 00:55 98.2 84 18 135/86 (102) 97 08/22/19 21:00 Room Air 08/22/19 20:45 98.2 60 18 161/84 (109) 97 71 08/22/19 18:58 51 20 96 Room Air 21 Intake and Output 08/22/19 08/23/19 19:00 07:00 Intake Total 550 ml 300 ml Balance 550 ml 300 ml Intake Oral 50 ml IV Total 550 ml 250 ml # Voids 5 3 # Bowel Movements 2 5 Laboratory Tests 08/23/19 05:20: White Blood Count 7.0#, Red Blood Count 4.33, Hemoglobin 12.5, Hematocrit 38.1, Mean Corpuscular Volume 88, Mean Corpuscular Hemoglobin 28.8, Mean Corpuscular Hemoglobin Concent 32.6, Red Cell Distribution Width 15.3H, Platelet Count 222, Mean Platelet Volume 6.3L, Neutrophils (%) (Auto) 61.7, Lymphocytes (%) (Auto) 26.5, Monocytes (%) (Auto) 8.2, Eosinophils (%) (Auto) 2.0, Basophils (%) (Auto ) 1.6, Sodium Level 132L, Potassium Level 3.8, Chloride Level 99, Carbon Dioxide Level 24, Anion Gap 9, Blood Urea Nitrogen 4L, Creatinine 0.7, Estimat Glomerular Filtration Rate , Glucose Level 83, Calcium Level 9.4 Current Medications Medications (Trade) Dose Ordered Sig/Celeste Route PRN Reason Start Time Stop Time Status Last Admin Dose Admin Acetaminophen (Tylenol) 650 mg Q4H PRN ORAL Mild Pain/Temp > 100.5 08/21/19 10:45 09/20/19 10:44 08/23/19 15:26 Albuterol/ Ipratropium (Albuterol/ Ipratropium) 3 ml Q6HRT PRN HHN Shortness of Breath 08/20/19 12:00 08/25/19 11:59 Clonidine HCl (Catapres Tab) 0.1 mg Q6HR PRN ORAL For High Blood Pressure 08/19/19 22:00 09/18/19 21:59 08/21/19 04:33 Docusate Sodium (Colace) 100 mg TID ORAL 9/25/19 18:00 09/19/19 08:59 08/23/19 12:15 Enoxaparin Sodium (Lovenox) 30 mg DAILY SUBQ 08/21/19 09:00 09/20/19 08:59 08/23/19 08:27 Lisinopril (Prinivil) 20 mg DAILY ORAL 08/20/19 09:00 09/19/19 08:59 08/23/19 08:28 Miconazole Nitrate (Monistat) 1 applic QHS VAGIN 08/20/19 22:30 09/19/19 22:29 08/22/19 21:53 Nitrofurantoin (Macrobid) 100 mg EVERY 12 HOURS ORAL 08/22/19 16:00 09/21/19 15:59 08/23/19 08:27 Ondansetron HCl (Zofran) 4 mg Q6H PRN IVP Nausea & Vomiting 08/19/19 22:00 09/18/19 21:59 08/23/19 12:15 Sodium Chloride 1,000 ml @ 50 mls/hr Q20H IV 08/20/19 15:30 09/19/19 15:29 08/23/19 01:49 Carlito Perla MD Aug 23, 2019 17:37
--- NOTE | 2019-08-23 17:42 | General Progress Note ---
Assessment/Plan Problem List: (1) Abdominal pain ICD Codes: R10.9 - Unspecified abdominal pain SNOMED: 16572140 (2) Lung nodule ICD Codes: R91.1 - Solitary pulmonary nodule SNOMED: 919942080 (3) Constipation ICD Codes: K59.00 - Constipation, unspecified SNOMED: 26803701 (4) Hypertension ICD Codes: I10 - Essential (primary) hypertension SNOMED: 52152334 (5) Diverticulosis ICD Codes: K57.90 - Diverticulosis of intestine, part unspecified, without perforation or abscess without bleeding SNOMED: 948584180 Status: progressing Assessment/Plan: poor historian will discuss w ob /demand planner re plan of care vaginal pain constipation improved reviewed chart and labs Subjective ROS Limited/Unobtainable: Yes Allergies: Coded Allergies: PENICILLINS (Unverified Allergy, Unknown, 08/05/19) Objective Last 24 Hour Vital Signs Date Time Temp Pulse Resp B/P (MAP) Pulse Ox O2 Delivery O2 Flow Rate FiO2 08/23/19 16:00 97.1 58 20 146/63 (90) 98 08/23/19 11:29 98.8 65 18 160/68 (98) 99 08/23/19 09:00 Room Air 08/23/19 08:28 181/86 08/23/19 08:11 58 20 98 Room Air 21 08/23/19 08:00 97.2 65 22 181/86 (117) 99 08/23/19 05:30 97.8 62 18 152/87 (108) 99 08/23/19 00:55 98.2 84 18 135/86 (102) 97 08/22/19 21:00 Room Air 08/22/19 20:45 98.2 60 18 161/84 (109) 97 71 08/22/19 18:58 51 20 96 Room Air 21 Intake and Output 08/22/19 08/23/19 19:00 07:00 Intake Total 550 ml 300 ml Balance 550 ml 300 ml Intake Oral 50 ml IV Total 550 ml 250 ml # Voids 5 3 # Bowel Movements 2 5 Laboratory Tests 08/23/19 05:20: White Blood Count 7.0#, Red Blood Count 4.33, Hemoglobin 12.5, Hematocrit 38.1, Mean Corpuscular Volume 88, Mean Corpuscular Hemoglobin 28.8, Mean Corpuscular Hemoglobin Concent 32.6, Red Cell Distribution Width 15.3H, Platelet Count 222, Mean Platelet Volume 6.3L, Neutrophils (%) (Auto) 61.7, Lymphocytes (%) (Auto) 26.5, Monocytes (%) (Auto) 8.2, Eosinophils (%) (Auto) 2.0, Basophils (%) (Auto ) 1.6, Sodium Level 132L, Potassium Level 3.8, Chloride Level 99, Carbon Dioxide Level 24, Anion Gap 9, Blood Urea Nitrogen 4L, Creatinine 0.7, Estimat Glomerular Filtration Rate , Glucose Level 83, Calcium Level 9.4 Height (Feet): 5 Height (Inches): 0.00 Weight (Pounds): 111 Cardiovascular: normal rate Respiratory/Chest: lungs clear Abdomen: soft Becca Lewis MD Aug 23, 2019 17:42
--- NOTE | 2019-08-23 18:39 | NUR ---
NURSE NOTES: Patient discharged home as ordered. Stable. Denies pain or SOB. Patient and patient's family (Tamara) given thorough discharge instructions. Tamara verbalized understanding and stated that she will call the doctors and follow up with Dr. Saba, Dr. Perla, and primary care physician. Patient has all phone numbers and information to follow up with doctors. Tamara is aware of doctor's information after RN highlighted information on discharge packet. Patient has all belongings. No IV access. Skin is clean ,dry, and intact. Patient assisted into private vehicle by RN and Tamara without incident.
--- NOTE | 2019-08-25 09:19 | Discharge Summary ---
Discharge Summary Discharge Summary _ DATE OF ADMISSION: 08/19/2019 DATE OF DISCHARGE: 08/23/2019 DISCHARGED BY: REASON FOR ADMISSION: 89 years old female with past medical history of hypertension, presented with abdominal pain, constipation and difficulty passing urine. Patient was recently hospitalized in this hospital for hyponatremia. According to caregiver patient had significant abdominal distention and was not able to pass urine for 2 days. Patient reported fullness and pressure in the lower pelvis. She reported nausea, but no vomiting. No fever , no chills. No cough , no upper respiratory symptoms. Upon evaluation vital signs were stable. Laboratory work-up revealed no leukocytosis , hemoglobin 11.8, hematocrit 35.1. Platelet count 295. Urinalysis, obtained by straight catheterization , revealed +1 leukocyte esterase , many bacteria mild pyuria. Sodium 128. Chloride 95. BUN 12, creatinine 0.9. Glucose 103. Stable LFT and lipase. CT of the abdomen and pelvis demonstrated possible left lower extremity DVT. No evidence of appendicitis. Fatty liver. Atherosclerotic vascular disease. Diverticulosis of the colon no definite diverticulitis. Pulmonary nodule at the right lung base. Patient subsequently was admitted for further management. CONSULTANTS: pulmonary Dr. Perla ID specialist Dr. Stafford GI specialist Dr. Mendoza woven label designer/oncologist Dr. Saba surgery Dr. Blackman CASHIER CLERK Dr. Flores HOSPITAL COURSE: Patient admitted to medical surgical floor. Venous duplex bilateral lower left lower extremity revealed no evidence of acute DVT. Per woven label designer/oncologist CT of the abdomen pelvis , which previously revealed possible DVT left lower extremity , was likely artifact. No anticoagulation was required. DVT prophylaxis provided. Patient started on IV fluids with normal saline. Renal parameters and electrolytes were closely monitored. Electrolytes corrected as needed , and nephrotoxins were avoided. Sodium from 128 up to 132 with IV hydration. Further oral hydration was encouraged. Surgeon followed. Abdominal exam was benign. No nausea, vomiting, fever or chills. No acute surgical intervention was necessarily. Bowel regimen instituted. Pain management was addressed. Symptomatic care provided. Infectious disease specialist followed. Urine culture revealed Enterococcus faecalis . Antibiotics provided as per ID specialist recommendation. Patient received short-term treatment with nitrofurantoin. Topical miconazole continued for Gina vaginitis. UC ARCHITECT specialist seen and evaluated patient. Per UC ARCHITECT speciaslit, no postmenopausal bleeding, no abnormal discharge . No additional interventions were necessary at this time. Cloak Room Attendant followed. Chest x-ray revealed no acute cardiopulmonary pathology. CT of the chest demonstrated 6 mm right basilar subpleural nodule. 7 mm left posterior semicircular opacity. Supplemental oxygen provided and titrated to keep pulse oximetry above 92%. Pulse oximetry remained stable on room air. Handheld nebulizing therapy with bronchodilator was on board as needed. Per cylinder head assembler, patient had stable pulmonary status. DVT prophylaxis provided. Cloak Room Attendant recommended six-month follow-up on the lung nodules as outpatient. Hemoglobin and hematocrit were closely monitored with goal to keep hemoglobin above 7. Hemoglobin and hematocrit remained at the baseline , and prior to discharge hemoglobin up to 12.5, hematocrit 38.1. All consultants cleared patient for discharge . Patient was stable for discharge home . Outpatient follow-up with her primary care provider. FINAL DIAGNOSES: Hyponatremia UTI with Enterococci faecalis Gina vaginitis Abdominal pain Diverticulosis/without evidence of diverticulitis Constipation Fatty liver Pulmonary nodule Anemia of chronic disease DISCHARGE MEDICATIONS: See Medication Reconciliation list. DISCHARGE INSTRUCTIONS: Patient was discharged home . Follow up with primary care provider in one week. I have been assigned to dictate discharge summary for this account. I was not involved in the patient's management. Jennifer Jimenez NP Aug 25, 2019 09:19
--- NOTE | 2019-08-25 16:07 | NUR ---
*-* INSURANCE *-* DISCHARGE SUMMARY BEEN FAXED TO: [facility] TRACKING#[id number] NO BUILDING MAINTENANCE MECHANIC ASSIGNED YET PH#[phone] FAX#[phone] REVIEWS/CLINICALS
== END 2019-08-23 18:30 | disposition home or self-care (01) | DRG 392 ==
LOC: EMR 16:17 → 3E 19:35 → EDBEDREQ 20:07 → OBSVTOIN 20:13 → 3E 08-21 16:25
DX: K59.00 Constipation, unspecified (principal); N39.0 Urinary tract infection, site not specified; E87.1 Hypo-osmolality and hyponatremia; K57.90 Diverticulosis of intestine, part unspecified, without perforation or abscess without bleeding; K76.0 Fatty (change of) liver, not elsewhere classified; R91.1 Solitary pulmonary nodule; Z88.0 Allergy status to penicillin; B95.2 Enterococcus as the cause of diseases classified elsewhere; B37.3 Candidiasis of vulva and vagina; D64.9 Anemia, unspecified; I70.90 Unspecified atherosclerosis; I10 Essential (primary) hypertension
CPT/HCPCS: 36415; 71045; 71250; 74177; 80048; 80053; 80061; 81003; 82248; 83690; 83735; 83880; 83930; 83935; 84100; 84300; 84443; 84550; 85025; 85610; 86140; 87081; 87086; 87181; 93971; 94664; 96374; 99285; J2405